=== PATIENT | female | born 1995 | race Caucasian/White ===

== ENCOUNTER 2016-09-15 18:13 | Emergency (ER) | payer MEDICAID ==
[2016-09-15 18:31] VITALS: BP 115/66
[2016-09-15] MEDS ORDERED: NS 0.9% 1000 ML* 1,000 ML IV ONE (21:17)
[2016-09-15] MEDS ORDERED: Ondansetron INJ* 2 MG/ML VIAL IV ONE (21:17)
[2016-09-15] MEDS ORDERED: Famotidine IV* 10 MG/ML 2 ML (20 mg) IV ONE (21:17)
[2016-09-15 21:59] LABS: Hematocrit 37 % (35-47); Hemoglobin 11.8 g/dl (12.0-16.0); Mean Corpuscular HGB Conc 32 g/dl (31-36); Mean Corpuscular Hemoglobin 24 pg (27-31); Mean Corpuscular Volume 77 fL (80-97); Mean Platelet Volume 9 um3 (7.4-10.4); Red Blood Count 4.87 10^6/ul (4.0-5.4); Red Cell Distribution Width 18 % (10.5-15); White Blood Count 7.4 10^3/ul (3.5-10.8)
[2016-09-15 22:16] LABS: ALT 11 U/L (7-52); AST 15 U/L (13-39); Alkaline Phosphatase 64 U/L (34-104); Anion Gap 7 mmol/L (2-11); BUN/Creatinine Ratio 19.4 (8-20); Blood Urea Nitrogen 12 mg/dL (6-24); CO2 Carbon Dioxide 26 mmol/L (22-32); Calcium 9.1 mg/dL (8.6-10.3); Chloride 102 mmol/L (101-111); EGFR African American 157.8 (>60); EGFR Non-African American 122.7 (>60); Globulin 2.8 g/dL (2-4); Glucose 90 mg/dL (70-100); Lipase 39 U/L (11.0-82.0); Potassium 3.9 mmol/L (3.5-5.0); Sodium 135 mmol/L (133-145); Total Protein 6.8 g/dL (6.4-8.9)
--- NOTE | 2016-09-15 23:09 | ED ---
GI/ HPI - HPI Summary HPI Summary: Patient complains of nausea and vomiting x 2 days. She states she has not vomited all day today, but continues to have nausea. she denies abdominal pain , vaginal discharge, vaginal odor, DE SOUZA, chest pain, dizziness or SOB. she states she feels slightly dehydrated most likely d/t vomiting. has not eaten all day today and vomited after eating yesterday. denies fever. - History of Current Complaint Chief Complaint: EDNauseaVomitDiarrh Stated Complaint: VOMITING, DEHYDRATED Hx Obtained From: Patient Onset/Duration: Started Days Ago - 2 Timing: Constant Severity: Moderate Current Severity: Moderate Pain Intensity: 0 - nausea only Associated Signs and Symptoms: Positive: Nausea, Vomiting, Change in Appetite, Pale Aggravating Factor(s): Nothing Alleviating Factor(s): Nothing - Risk Factors GI Bleed Risk Factor(s): Negative Spontaneous AB Risk Factor(s): Negative Placental Abruption Risk Factor(s): Negative Ectopic Risk Factor(s): Negative Ovarian Torsion Risk Factor(s): Reproductive Age, w/Hx of PID - Additional Pertinent History Primary Care Physician: KENYA - Allergy/Home Medications Allergies/Adverse Reactions: Allergies Allergy/AdvReac Type Severity Reaction Status Date / Time Amoxicillin Allergy Unknown Verified 08/17/16 21:31 Reaction Details Lorazepam [From Ativan] Allergy Unknown Verified 08/17/16 21:31 Reaction Details Penicillins [PCN] Allergy Unknown Verified 08/17/16 21:31 Reaction Details Lactose Intolerance (GI) AdvReac Intermediate Abdominal Verified 08/17/16 21:31 Pain Hydroxyzine [From Atarax] AdvReac See Comment Verified 08/17/16 21:31 Ziprasidone [From Geodon] AdvReac See Comment Verified 08/17/16 21:31 wheat AdvReac Intermediate Vomiting Uncoded 08/17/16 21:31 fruit AdvReac Unknown Uncoded 08/17/16 21:31 Reaction Details PMH/Surg Hx/FS Hx/Imm Hx Previously Healthy: Yes Endocrine/Hematology History: Denies: Hx Anticoagulant Therapy, Hx Diabetes, Hx Thyroid Disease Cardiovascular History: Reports: Other Cardiovascular Problems/Disorders - MURMUR Denies: Hx Hypertension Respiratory History: Reports: Hx Asthma Denies: Hx Chronic Obstructive Pulmonary Disease (COPD), Hx Lung Cancer, Hx Pneumonia, Hx Pulmonary Embolism, Other Respiratory Problems/Disorders GI History: Reports: Other GI Disorders - wheat allergy and lactose intolerance Denies: Hx Gall Bladder Disease, Hx Gastrointestinal Bleed, Hx Ulcer, Hx Urosepsis History: Reports: Other Problems/Disorders - hx multiple UTIs Denies: Hx Kidney Stones, Hx Renal Disease Neurological History: Reports: Hx Seizures Denies: Hx Dementia, Hx Migraine, Hx Transient Ischemic Attacks (TIA) Psychiatric History: Reports: Hx Anxiety, Hx Depression, Hx Inpatient Treatment - [facility], Hx Community Mental Health Tx - [facility], [facility], Other Psychiatric Issues/ Disorders Denies: Hx Attention Deficit Hyperactivity Disorder, Hx Eating Disorder, Hx Panic Disorder, Hx Post Traumatic Stress Disorder, Hx Schizophrenia, Hx Bipolar Disorder, Hx Suicide Attempt, Hx of Violent Episodes Against Others, Hx Substance Abuse - Surgical History Surgery Procedure, Year, and Place: none - Immunization History Date of Tetanus Vaccine: Unk Date of Influenza Vaccine: None Infectious Disease History: No Infectious Disease History: Denies: Hx Hepatitis, Hx Human Immunodeficiency Virus (HIV), Hx of Known/ Suspected MRSA, History Other Infectious Disease, Traveled Outside the [place] in Last 30 Days - Family History Known Family History: Positive: None, Unknown - Adopted, Other - Biological mother - EtOH and drug abuse - Social History Alcohol Use: None Alcohol Amount: pt denies during Hx Substance Use: No Substance Use Type: Reports: None Substance Use Comment - Amount & Last Used: pt denies drug use with this Hx Tobacco Use: Yes Smoking Status (MU): Former Smoker Type: Cigarettes Have You Smoked in the Last Year: No Review of Systems - ROS Summary Review of Systems Summary: Constitutional: The patient denies fever, DE SOUZA. HEENT: Head: The patient denies headaches or dizziness. Eyes: The patient denies diplopia, blurry vision, eye pain, eye discharge, photophobia. Throat: The patient denies sore throats or hoarseness. Cardiovascular: The patient denies chest pain, palpitations, syncope, night cramps, or orthostasis. Respiratory: The patient denies cough, sputum production,. Gastrointestinal: The patient denies odynophagia, dysphagia, hematemesis, melenemesis. patient positive for nausea and vomiting. Genitourinary: Patient denies dysuria, hematuria, or pyuria. Patient denies back pain. Denies vaginal discharge, vaginal bleeding. Denies other urinary symptoms. Neurologic: The patient denies headache, loss of consciousness, or seizure. Dermatologic: The patient denies hyperpigmentation, rash, or photosensitivity. All Other Systems Reviewed And Are Negative: Yes Physical Exam - Summary Physical Exam Summary: Appearance: WDW, comfortable, pleasant, alert Skin: Soft dry skin, no lesions. Nailbeds pink with no cyanosis or clubbing. Eyes: MELITA, EOMI, Conjunctiva pink with no redness or exudates. Mouth: Dentition without lesions. Moist mucosa Neck: Full range of motion. Thyroid not palpable. Trachea at midline. No lymphadenopathy. Pulm: Chest symmetrical expansion. No deformities on posterior chest wall. Lungs clear to auscultation and percussion, without adventitious sounds. CV: No JVD. No deformities on anterior chest wall. Heart soundsRRR, Normal S1 and single S2. No S3, S4, rubs, or murmurs. Carotids 2+ bilaterally without bruits. . Abd: No scars, inspection unremarkable. Bowel sounds normoactive. No pain on palpation in all 4 quadrants, epigastrium or suprapubic. Spleen not palpated. Negative CVA tenderness. Negative Rovsing. No tenderness at McBurneys point. exam not performed Musculoskeletal: Full range of motion. No deformities noted. Pulses full and equal. No calf tenderness Neuro: Motor strength is 5/5 in upper and lower extremities bilaterally. A&OX3 Psych: Logical, coherent Vital Signs On Initial Exam: Initial Vitals Temp Pulse Resp BP Pulse Ox 98.0 F 94 16 115/66 97 09/15/16 18:29 09/15/16 18:29 09/15/16 18:29 09/15/16 18:29 09/15/16 18:29 Diagnostics - Vital Signs Vital Signs Temp Pulse Resp BP Pulse Ox 09/15/16 18:29 98.0 F 94 16 115/66 97 - Laboratory Lab Results: Lab Results 09/15/16 09/15/16 Range/Units 21:50 21:50 WBC 7.4 (3.5-10.8) 10^3/ul RBC 4.87 (4.0-5.4) 10^6/ul Hgb 11.8 L (12.0-16.0) g/dl Hct 37 (35-47) % MCV 77 L (80-97) fL MCH 24 L (27-31) pg MCHC 32 (31-36) g/dl RDW 18 H (10.5-15) % Plt Count 320 (150-450) 10^3/ul MPV 9 (7.4-10.4) um3 Neut % (Auto) 57.8 (38-83) % Lymph % (Auto) 30.7 (25-47) % Nolan % (Auto) 6.8 (1-9) % Eos % (Auto) 4.1 (0-6) % Baso % (Auto) 0.6 (0-2) % Absolute Neuts (auto) 4.3 (1.5-7.7) 10^3/ul Absolute Lymphs (auto) 2.3 (1.0-4.8) 10^3/ul Absolute Monos (auto) 0.5 (0-0.8) 10^3/ul Absolute Eos (auto) 0.3 (0-0.6) 10^3/ul Absolute Basos (auto) 0 (0-0.2) 10^3/ul Absolute Nucleated RBC 0 10^3/ul Nucleated RBC % 0 Sodium 135 (133-145) mmol/L Potassium 3.9 (3.5-5.0) mmol/L Chloride 102 (101-111) mmol/L Carbon Dioxide 26 (22-32) mmol/L Anion Gap 7 (2-11) mmol/L BUN 12 (6-24) mg/dL Creatinine 0.62 (0.51-0.95) mg/dL Est GFR ( Amer) 157.8 (>60) Est GFR (Non-Af Amer) 122.7 (>60) BUN/Creatinine Ratio 19.4 (8-20) Glucose 90 (70-100) mg/dL Calcium 9.1 (8.6-10.3) mg/dL Total Bilirubin 0.40 (0.2-1.0) mg/dL AST 15 (13-39) U/L ALT 11 (7-52) U/L Alkaline Phosphatase 64 (34-104) U/L Total Protein 6.8 (6.4-8.9) g/dL Albumin 4.0 (3.2-5.2) g/dL Globulin 2.8 (2-4) g/dL Albumin/Globulin Ratio 1.4 (1-3) Lipase 39 (11.0-82.0) U/L Beta HCG, Quant < 0.60 mIU/mL Result Diagrams: 09/15/16 21:50 09/15/16 21:50 Lab Statement: Any lab studies that have been ordered have been reviewed, and results considered in the medical decision making process. GIGU Course/Dx - Course Course Of Treatment: Patient given fluids and zofran. On re-evlauation, patient feeling improved and OK to be discharged home. concern for PID, UTI, appendicitis is not suspected in this visit. - Diagnoses Differential Diagnoses - Female: Vomiting Provider Diagnoses: Nausea & vomiting - Physician Notifications Instructed by Provider To: Have Pt Call For Appt. Discharge - Discharge Plan Condition: Stable Disposition: HOME Prescriptions: Ondansetron TAB* [Zofran Tab*] 4 mg PO Q6H PRN #15 tab MDD 4 PRN Reason: Nausea Patient Education Materials: Acute Nausea and Vomiting (ED) Additional Instructions: Follow up with PCP if symptoms worsen or fail to improve. Drink plenty of fluids. Try to eat a bland diet over the next few days. Ibuprofen for pain as needed. Take zofran as prescribed to you.
[2016-09-15 23:19] LABS: Urine Bacteria Absent (Absent); Urine Bilirubin Negative (Negative); Urine Glucose Negative (Negative); Urine Nitrite Negative (Negative)
== END 2016-09-16 00:08 | disposition home or self-care (01) ==
LOC: ED 18:13
DX: R11.2 Nausea with vomiting, unspecified (principal); Z87.891 Personal history of nicotine dependence
CPT/HCPCS: 36415; 80053; 81003; 81015; 83690; 84702; 85025; 96361; 96374; 96375; 99282; J2405

== ENCOUNTER 2016-10-01 21:38 | Emergency (ER) | payer MEDICAID ==
[2016-10-01 22:33] VITALS: BP 135/70
[2016-10-02] MEDS ORDERED: Prochlorperazine TAB* 10 MG PO ONE (00:10)
[2016-10-02] MEDS ORDERED: Naproxen TAB* 250 MG PO ONE (00:11)
--- NOTE | 2016-10-02 00:20 | ED ---
Headache - HPI Summary HPI Summary: Patient with a CC of migraine since this morning. She states the pain is 9/10. Endorses photophobia and phonophobia, but denies scotomas. States she was prescribed naproxen for pain which helps some. Denies fever, chills, blurry vision or double vision. Denies abd pain or nausea. Notes she vomited once 3 days ago but feels it was food related. She states she has a history of migraines since 1 year ago and will get one once per month. DE SOUZA not sudden in onset, not worst of life. Frontal and temporal but feels occipitally as well. Does not radiate. - History Of Current Complaint Chief Complaint: EDHeadache Stated Complaint: MIGRAINES Hx Obtained From: Patient Hx Last Menstrual Period: pt due on 07/13/16 Onset/Duration: Sudden Onset Currently Pain Is: Current Pain Scale(0-10)= - 9 Timing: Constant Character: Sharp, Throbbing Location of Headache: Frontal, Temporal Aggravating Factor: Exertion, Bright Lights Allevating Factors: Nothing Associated Signs And Symptoms: Negative - Risk Factors SAH Risk Factors: Negative Meningitis Risk Factors: Negative SDH Risk Factors: Negative Temporal Arteritis Risk Factors: Negative - Allergies/Home Medications Allergies/Adverse Reactions: Allergies Allergy/AdvReac Type Severity Reaction Status Date / Time Amoxicillin Allergy Unknown Verified 08/17/16 21:31 Reaction Details Lorazepam [From Ativan] Allergy Unknown Verified 08/17/16 21:31 Reaction Details Penicillins [PCN] Allergy Unknown Verified 08/17/16 21:31 Reaction Details Lactose Intolerance (GI) AdvReac Intermediate Abdominal Verified 08/17/16 21:31 Pain Hydroxyzine [From Atarax] AdvReac See Comment Verified 08/17/16 21:31 Ziprasidone [From Geodon] AdvReac See Comment Verified 08/17/16 21:31 wheat AdvReac Intermediate Vomiting Uncoded 08/17/16 21:31 fruit AdvReac Unknown Uncoded 08/17/16 21:31 Reaction Details PMH/Surg Hx/FS Hx/Imm Hx Previously Healthy: Yes Endocrine/Hematology History: Denies: Hx Anticoagulant Therapy, Hx Diabetes, Hx Thyroid Disease Cardiovascular History: Reports: Other Cardiovascular Problems/Disorders - MURMUR Denies: Hx Hypertension Respiratory History: Reports: Hx Asthma Denies: Hx Chronic Obstructive Pulmonary Disease (COPD), Hx Lung Cancer, Hx Pneumonia, Hx Pulmonary Embolism, Other Respiratory Problems/Disorders GI History: Reports: Other GI Disorders - wheat allergy and lactose intolerance Denies: Hx Gall Bladder Disease, Hx Gastrointestinal Bleed, Hx Ulcer, Hx Urosepsis History: Reports: Other Problems/Disorders - hx multiple UTIs Denies: Hx Kidney Stones, Hx Renal Disease Neurological History: Reports: Hx Seizures Denies: Hx Dementia, Hx Migraine, Hx Transient Ischemic Attacks (TIA) Psychiatric History: Reports: Hx Anxiety, Hx Depression, Hx Inpatient Treatment - [facility], Hx Community Mental Health Tx - [facility], [facility], Other Psychiatric Issues/ Disorders Denies: Hx Attention Deficit Hyperactivity Disorder, Hx Eating Disorder, Hx Panic Disorder, Hx Post Traumatic Stress Disorder, Hx Schizophrenia, Hx Bipolar Disorder, Hx Suicide Attempt, Hx of Violent Episodes Against Others, Hx Substance Abuse - Surgical History Surgery Procedure, Year, and Place: none - Immunization History Date of Tetanus Vaccine: Unk Date of Influenza Vaccine: None Infectious Disease History: No Infectious Disease History: Denies: Hx Hepatitis, Hx Human Immunodeficiency Virus (HIV), Hx of Known/ Suspected MRSA, History Other Infectious Disease, Traveled Outside the in Last 30 Days - Family History Known Family History: Positive: None, Unknown - Adopted, Other - Biological mother - EtOH and drug abuse - Social History Occupation: Unemployed Lives: With Family Alcohol Use: None Alcohol Amount: pt denies during Hx Substance Use: No Substance Use Type: Reports: None Substance Use Comment - Amount & Last Used: pt denies drug use with this Hx Tobacco Use: Yes Smoking Status (MU): Former Smoker Type: Cigarettes Have You Smoked in the Last Year: No Review of Systems Constitutional: Negative Positive: Photophobia ENT: Negative Cardiovascular: Negative Respiratory: Negative Gastrointestinal: Negative Skin: Negative Positive: Headache Psychological: Normal All Other Systems Reviewed And Are Negative: Yes Physical Exam Triage Information Reviewed: Yes Vital Signs On Initial Exam: Initial Vitals Temp Pulse Resp BP Pulse Ox 99.3 F 103 16 135/70 100 10/01/16 22:29 10/01/16 22:29 10/01/16 22:29 10/01/16 22:29 10/01/16 22:29 Vital Signs Reviewed: Yes Appearance: Positive: Well-Appearing, No Pain Distress, Well-Nourished Skin: Positive: Warm, Skin Color Reflects Adequate Perfusion Head/Face: Positive: Normal Head/Face Inspection Eyes: Positive: Normal, EOMI, MELITA ENT: Positive: Normal ENT inspection Neck: Positive: Supple, Nontender, No Lymphadenopathy Respiratory/Lung Sounds: Positive: Clear to Auscultation, Breath Sounds Present Musculoskeletal: Positive: Normal, Strength/ROM Intact Neurological: Positive: Normal Psychiatric: Positive: Normal Diagnostics - Vital Signs Vital Signs Temp Pulse Resp BP Pulse Ox 10/01/16 22:29 99.3 F 103 16 135/70 100 - Laboratory Lab Statement: Any lab studies that have been ordered have been reviewed, and results considered in the medical decision making process. Headache Course/Dx - Course Course Of Treatment: Patient educated on follow up with PCP and abortive therapies of migraines. Patient prescribed compazine for abortive therapy and encouraged to take with naproxen and benadryl (at night). Come back to ED if symptoms fail to improve. DE SOUZA was not worst of life, not sudden in onset, no visual changes. Patient prefers outpatient treatment. - Diagnoses Differential Diagnosis/HQI/PQRI: Migraine, Tension Headache, Viral Syndrome Provider Diagnoses: Migraine without aura Is Visit Related: No Discharge - Discharge Plan Condition: Stable Disposition: HOME Prescriptions: Prochlorperazine TAB* [Compazine Tab*] 10 mg PO Q6H PRN #20 tab MDD 4 PRN Reason: Pain Patient Education Materials: Migraine Headache (ED) Referrals: Suzi Hernandez MD [Primary Care Provider] - Additional Instructions: Take medication as prescribed to you. At onset of migraine: take 10mg compazine tab, 500mg Naproxen, and 25mg Benadryl (only at night) as discussed. Follow up with your PCP regarding abortive therapy medications if migraines continue.
== END 2016-10-02 00:25 | disposition home or self-care (01) ==
LOC: ED 21:38
DX: G43.009 Migraine without aura, not intractable, without status migrainosus (principal); Z87.891 Personal history of nicotine dependence; H53.149 Visual discomfort, unspecified
CPT/HCPCS: 99282; A9270-GY; Q0164

== ENCOUNTER 2016-10-04 13:50 | Emergency (ER) | payer MEDICAID ==
[2016-10-04 13:59] VITALS: BP 109/83
[2016-10-04 17:08] LABS: Manual Entry Verification MD; UR Preg Internal Control QC Line Present
--- NOTE | 2016-10-04 17:41 | RAD ---
INDICATION: Left foot injury. TECHNIQUE: 3 views of the left foot were obtained. FINDINGS: The bones are in normal alignment. No fracture is seen. Joint spaces appear maintained. IMPRESSION: NO EVIDENCE FOR FRACTURE.
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
== END 2016-10-04 19:22 | disposition home or self-care (01) ==
LOC: ED 13:50
DX: S90.32XA Contusion of left foot, initial encounter (principal); S93.602A Unspecified sprain of left foot, initial encounter; M25.572 Pain in left ankle and joints of left foot; Z87.891 Personal history of nicotine dependence; W22.8XXA Striking against or struck by other objects, initial encounter; Y93.9 Activity, unspecified; Y92.9 Unspecified place or not applicable; Y99.9 Unspecified external cause status
CPT/HCPCS: 81025; 99281

== ENCOUNTER 2016-10-14 18:16 | Emergency (ER) | payer MEDICAID, OTHER ==
[2016-10-14] MEDS ORDERED: Ondansetron INJ* 2 MG/ML VIAL IV ONE (19:35)
[2016-10-14] MEDS ORDERED: NS 0.9% 1000 ML* 1,000 ML IV ONE (19:35)
[2016-10-14 20:26] LABS: Hematocrit 38 % (35-47); Hemoglobin 12.3 g/dl (12.0-16.0); Mean Corpuscular HGB Conc 32 g/dl (31-36); Mean Corpuscular Hemoglobin 25 pg (27-31); Mean Corpuscular Volume 77 fL (80-97); Mean Platelet Volume 9 um3 (7.4-10.4); Red Blood Count 4.97 10^6/ul (4.0-5.4); Red Cell Distribution Width 16 % (10.5-15); White Blood Count 5.6 10^3/ul (3.5-10.8)
[2016-10-14 20:42] LABS: Albumin 4.2 g/dL (3.2-5.2); BUN/Creatinine Ratio 16.9 (8-20); C Reactive Protein 4.8 mg/L (< 5.00); Calcium 9.1 mg/dL (8.6-10.3); Globulin 2.6 g/dL (2-4); Potassium 3.6 mmol/L (3.5-5.0); Total Protein 6.8 g/dL (6.4-8.9)
[2016-10-14 21:01] LABS: Urine Bacteria Absent (Absent); Urine Bilirubin Negative (Negative); Urine Glucose Negative (Negative); Urine Nitrite Negative (Negative)
[2016-10-14] MEDS ORDERED: Ciprofloxacin TAB* 500 MG PO ONE (21:25)
--- NOTE | 2016-10-14 21:34 | ED ---
García Curran Billy, scribed for Maged Vo MD on 10/14/16 at 1942 . Complex/Multi-Sys Presentation - HPI Summary HPI Summary: Patient is a 21 year-old female coming to [facility] after she woke up yesterday morning feeling "generally unwell." She reports multiple episodes of N/V/D today ; she describes dark, watery diarrhea without blood. She also reports abd cramping, DE SOUZA, dizziness, chills, and decreased appetite. Positive dysuria and frequency. Her mother had similar symptoms at home recently. No recent travel or antibiotics. LMP 2 weeks ago. - History Of Current Complaint Chief Complaint: EDGeneral Time Seen by Provider: 10/14/16 19:34 Hx Obtained From: Patient Onset/Duration: Gradual Onset, Lasting Days, Still Present Timing: Constant Severity Currently: Moderate Severity Initially: Moderate Location: Pain At: - abd cramp Aggravating Factor(s): none Alleviating Factor(s): none Associated Signs And Symptoms: Positive: Dizziness, Headache, Nausea, Vomiting, Diarrhea, Abdominal Pain, Dysuria, Decreased Oral Intake, Other - urinary freq - Allergies/Home Medications Allergies/Adverse Reactions: Allergies Allergy/AdvReac Type Severity Reaction Status Date / Time Amoxicillin Allergy Unknown Verified 10/04/16 14:00 Reaction Details Lorazepam [From Ativan] Allergy Unknown Verified 10/04/16 14:00 Reaction Details Penicillins [PCN] Allergy Unknown Verified 10/04/16 14:00 Reaction Details Lactose Intolerance (GI) AdvReac Intermediate Abdominal Verified 10/04/16 14:00 Pain Hydroxyzine [From Atarax] AdvReac See Comment Verified 10/04/16 14:00 Ziprasidone [From Geodon] AdvReac See Comment Verified 10/04/16 14:00 wheat AdvReac Intermediate Vomiting Uncoded 10/04/16 14:00 fruit AdvReac Unknown Uncoded 10/04/16 14:00 Reaction Details PMH/Surg Hx/FS Hx/Imm Hx Endocrine/Hematology History: Denies: Hx Anticoagulant Therapy, Hx Diabetes, Hx Thyroid Disease Cardiovascular History: Reports: Other Cardiovascular Problems/Disorders - MURMUR Denies: Hx Hypertension Respiratory History: Reports: Hx Asthma Denies: Hx Chronic Obstructive Pulmonary Disease (COPD), Hx Lung Cancer, Hx Pneumonia, Hx Pulmonary Embolism, Other Respiratory Problems/Disorders GI History: Reports: Other GI Disorders - wheat allergy and lactose intolerance Denies: Hx Gall Bladder Disease, Hx Gastrointestinal Bleed, Hx Ulcer, Hx Urosepsis History: Reports: Other Problems/Disorders - hx multiple UTIs Denies: Hx Kidney Stones, Hx Renal Disease Neurological History: Reports: Hx Seizures Denies: Hx Dementia, Hx Migraine, Hx Transient Ischemic Attacks (TIA) Psychiatric History: Reports: Hx Anxiety, Hx Depression, Hx Inpatient Treatment - [facility], [facility], [facility], Other Psychiatric Issues/ Disorders Denies: Hx Attention Deficit Hyperactivity Disorder, Hx Eating Disorder, Hx Panic Disorder, Hx Post Traumatic Stress Disorder, Hx Schizophrenia, Hx Bipolar Disorder, Hx Suicide Attempt, Hx of Violent Episodes Against Others, Hx Substance Abuse - Surgical History Surgery Procedure, Year, and Place: none - Immunization History Date of Tetanus Vaccine: Unk Date of Influenza Vaccine: None Infectious Disease History: No Infectious Disease History: Denies: Hx Hepatitis, Hx Human Immunodeficiency Virus (HIV), Hx of Known/ Suspected MRSA, History Other Infectious Disease, Traveled Outside the [place] in Last 30 Days - Family History Known Family History: Positive: Unknown - Adopted, Other - Biological mother - EtOH and drug abuse - Social History Alcohol Use: Rare Alcohol Amount: pt denies during Hx Substance Use: No Substance Use Type: Reports: None Substance Use Comment - Amount & Last Used: pt denies drug use with this Hx Tobacco Use: Yes Smoking Status (MU): Former Smoker Type: Cigarettes Have You Smoked in the Last Year: No Review of Systems Positive: Chills, Other - general malaise Positive: Abdominal Pain, Vomiting, Diarrhea, Nausea, Other - decreased appetite Positive: dysuria, frequency Neurological: Other - dizziness Positive: Headache All Other Systems Reviewed And Are Negative: Yes Physical Exam - Summary Physical Exam Summary: VITAL SIGNS: Reviewed. GENERAL: Patient is a well developed and nourished female who is lying comfortable in the stretcher. Patient is not in any acute respiratory distress. HEAD AND FACE: Normocephalic and atraumatic. EYES: PERRLA, EOMI x 2, No injected conjunctiva. EARS: Hearing grossly intact. Ear canals and tympanic membranes are WNL. MOUTH: Oropharynx within normal limits. NECK: Supple, trachea is midline, no adenopathy, no JVD. CHEST: Symmetric, no tenderness at palpation LUNGS: Clear to auscultation bilaterally. No wheezing or crackles. CVS: RRR,, S1 and S2 present, no murmurs or gallops appreciated. ABDOMEN: Soft, non-tender. No signs of distention. Positive bowel sounds. No rebound no guarding, and no masses palpated. No abdominal bruit or pulsations. EXTREMITIES: FROM in all major joints, no edema, no cyanosis or clubbing. NEURO: Alert and oriented x 3. No acute neurological deficits. Speech is normal. SKIN: Dry and warm Triage Information Reviewed: Yes Vital Signs On Initial Exam: Initial Vitals Temp Pulse Resp BP Pulse Ox 983.7 F 120 20 107/86 98 10/14/16 18:48 10/14/16 18:48 10/14/16 18:48 10/14/16 18:48 10/14/16 18:48 Vital Signs Reviewed: Yes Diagnostics - Vital Signs Vital Signs Temp Pulse Resp BP Pulse Ox 10/14/16 18:48 983.7 F 120 20 107/86 98 - Laboratory Result Diagrams: 10/14/16 20:05 10/14/16 20:05 Lab Statement: Any lab studies that have been ordered have been reviewed, and results considered in the medical decision making process. Complex Multi-Symp Course/Dx Assessment/Plan: Patient is a 21 year-old female coming to [facility] after she woke up yesterday morning feeling "generally unwell." She reports multiple episodes of N/V/D today; she describes dark, watery diarrhea without blood. She also reports abd cramping, DE SOUZA, dizziness, chills, and decreased appetite. Positive dysuria and frequency. Her mother had similar symptoms at home recently. No recent travel or antibiotics. LMP 2 weeks ago. Bloodwork WNL. UA is contaminated , however the patient reports that she has dysuria and frequency and she has had same sx as when she had previous UTI. Therefore she will be given ciprofloxacin for clinical UTI and we will send urine cultures to confirm. The patient has not been able to give any stool samples, therefore it seems that her symptoms are improving. The nausea and vomiting have also resolved, and she is able to tolerate PO. Therefore she will be discharged home to follow up with PCP. She is hemodynamically stable, A&Ox3. I discussed all the findings and test results with the patient Patient was instructed to return to the emergency room immediately if any of the symptoms return or worsens. They understand and agree. They were explained the possibility of an early abdominal pathology which was not detected at this time despite the physical exam and testing. They understand and agree. Abdominal exam before discharge: Soft, NT. No signs of distention. BS present. No rebound no guarding, and no masses palpated. Patient is alert and oriented. Patient is hemodynamically stable. Patient is to follow up with primary care physician in the next 24 hours. Patient and patients parents agree and understands - Diagnoses Differential Diagnoses/HQI/PQRI: Other - Gastrits, gastroenteritis, colitis, diverticulitis Provider Diagnoses: UTI (urinary tract infection), Nausea, vomiting and diarrhea Discharge - Discharge Plan Condition: Stable Disposition: HOME Prescriptions: Ciprofloxacin TAB* [Cipro Tab*] 250 mg PO BID #6 tab Patient Education Materials: Urinary Tract Infection in Women (ED), Acute Nausea and Vomiting (ED), Acute Diarrhea (ED) Referrals: Suzi Hernandez MD [Primary Care Provider] - The documentation as recorded by the García dudley Billy accurately reflects the service I personally performed and the decisions made by , Maged Vo MD.
[2016-10-14 21:37] VITALS: BP 111/65
== END 2016-10-14 21:37 | disposition home or self-care (01) ==
LOC: ED 18:16
DX: N39.0 Urinary tract infection, site not specified (principal); R10.9 Unspecified abdominal pain; R51 Headache; R42 Dizziness and giddiness; R30.0 Dysuria; R19.7 Diarrhea, unspecified; R11.2 Nausea with vomiting, unspecified; Z87.891 Personal history of nicotine dependence
CPT/HCPCS: 36415; 80053; 81003; 81015; 82140; 83605; 83690; 85025; 86140; 87086; 96374; 99282; J2405

== ENCOUNTER 2016-10-17 17:26 | Emergency (ER) | payer MEDICAID ==
[2016-10-17 18:01] VITALS: BP 115/72
== END 2016-10-17 19:00 | disposition left against medical advice (07) ==
LOC: ED 17:26
DX: R11.10 Vomiting, unspecified (principal); Z53.21 Procedure and treatment not carried out due to patient leaving prior to being seen by health care provider

== ENCOUNTER 2016-10-29 18:27 | Emergency (ER) | payer MEDICAID, OTHER ==
[2016-10-29 23:07] LABS: UR Preg Internal Control QC Line Present
[2016-10-29 23:10] LABS: Urine Bacteria Absent (Absent); Urine Bilirubin Negative (Negative); Urine Glucose Negative (Negative); Urine Nitrite Negative (Negative)
--- NOTE | 2016-10-29 23:17 | ED ---
Abdominal Pain/Female - HPI Summary HPI Summary: 21 female presents with complaints of abdominal cramping and burning sensation of RLQ/suprapubic pain that began today 10/29/16 around 4pm. Patient states she was taking a bath because she was having some cramps and when she got out and was drying off a small puddle of clear fluid came out of her vagina and went onto the floor. Patient denies any color to the fluid or blood. It was clear water. Describes it to be similar to when her water broke with her first child. Patient states she is due for her menstrual cycle today but has not gotten it. LMP 10/05/16. She took a OTC test 2 weeks ago that was positive however she took another 2 this past Wednesday and Wednesday10/27/16 that were both negative. Stated "she felt like her stomach was growing like it did with her first child." She denies any discharge at this time or since the incident. Complains still of abdominal cramping and "burning sensation" to the RLQ, suprapubic area with some radiation into her flank. Denies fever/chills, urinary frequency, urgency and burning. + Hx of ovarian cysts. She wants to make sure this is not an ectopic or ovarian cyst. Denies constipation , diarrhea or trouble going to the bathroom. - History of Current Complaint Chief Complaint: EDVaginalBleeding Stated Complaint: LOWER ABD CRAMPING, POSSIBLE PREG Time Seen by Provider: 10/29/16 22:29 Hx Obtained From: Patient Hx Last Menstrual Period: 10/05/16 ?: No Onset/Duration: Sudden Onset Timing: Constant Severity Initially: Moderate Severity Currently: Mild Pain Intensity: 9 Pain Scale Used: 0-10 Numeric Location: Discrete At: RLQ, Suprapubic Radiates: Yes Radiates to: Flank Character: Burning, Cramping Aggravating Factor(s): Movement - laying in supine position Alleviating Factor(s): Position Associated Signs and Symptoms: Positive: Vaginal Discharge - not currently, however one incident after taking a bath. a clear amount of small fluid, water- like. - Risk Factors Ovarian Torsion Risk Factor: Ovarian Cysts/Tumors - cyst history Allergies/Adverse Reactions: Allergies Allergy/AdvReac Type Severity Reaction Status Date / Time Amoxicillin Allergy Unknown Verified 10/30/16 01:03 Reaction Details Lorazepam [From Ativan] Allergy Unknown Verified 10/30/16 01:03 Reaction Details Penicillins [PCN] Allergy Unknown Verified 10/30/16 01:03 Reaction Details Lactose Intolerance (GI) AdvReac Intermediate Abdominal Verified 10/30/16 01:03 Pain Hydroxyzine [From Atarax] AdvReac See Comment Verified 10/30/16 01:03 Ziprasidone [From Geodon] AdvReac See Comment Verified 10/30/16 01:03 wheat AdvReac Intermediate Vomiting Uncoded 10/30/16 01:03 fruit AdvReac Unknown Uncoded 10/30/16 01:03 Reaction Details PMH/Surg Hx/FS Hx/Imm Hx Endocrine/Hematology History: Denies: Hx Anticoagulant Therapy, Hx Diabetes, Hx Thyroid Disease Cardiovascular History: Reports: Other Cardiovascular Problems/Disorders - MURMUR Denies: Hx Hypertension Respiratory History: Reports: Hx Asthma Denies: Hx Chronic Obstructive Pulmonary Disease (COPD), Hx Lung Cancer, Hx Pneumonia, Hx Pulmonary Embolism, Other Respiratory Problems/Disorders GI History: Reports: Other GI Disorders - wheat allergy and lactose intolerance Denies: Hx Gall Bladder Disease, Hx Gastrointestinal Bleed, Hx Ulcer, Hx Urosepsis History: Reports: Other Problems/Disorders - hx multiple UTIs Denies: Hx Kidney Stones, Hx Renal Disease Neurological History: Reports: Hx Seizures Denies: Hx Dementia, Hx Migraine, Hx Transient Ischemic Attacks (TIA) Psychiatric History: Reports: Hx Anxiety, Hx Depression, Hx Inpatient Treatment - [facility], [facility], [facility], Other Psychiatric Issues/ Disorders Denies: Hx Attention Deficit Hyperactivity Disorder, Hx Eating Disorder, Hx Panic Disorder, Hx Post Traumatic Stress Disorder, Hx Schizophrenia, Hx Bipolar Disorder, Hx Suicide Attempt, Hx of Violent Episodes Against Others, Hx Substance Abuse - Surgical History Surgery Procedure, Year, and Place: none - Immunization History Date of Tetanus Vaccine: Unk Date of Influenza Vaccine: None Infectious Disease History: No Infectious Disease History: Denies: Hx Hepatitis, Hx Human Immunodeficiency Virus (HIV), Hx of Known/ Suspected MRSA, History Other Infectious Disease, Traveled Outside the [place] in Last 30 Days - Family History Known Family History: Positive: None, Unknown - Adopted, Other - Biological mother - EtOH and drug abuse - Social History Alcohol Use: Rare Alcohol Amount: pt denies during Hx Substance Use: No Substance Use Type: Reports: Marijuana Substance Use Comment - Amount & Last Used: used in past, also ecstacy Hx Tobacco Use: Yes Smoking Status (MU): Former Smoker Type: Cigarettes Have You Smoked in the Last Year: No Review of Systems Constitutional: Negative Eyes: Negative ENT: Negative Cardiovascular: Negative Respiratory: Negative Positive: Abdominal Pain - cramping and burning of RLQ, suprapubic Positive: see HPI, discharge - clear fluid x1 time Positive: Arthralgia Skin: Negative Neurological: Negative Psychological: Normal All Other Systems Reviewed And Are Negative: Yes Physical Exam Triage Information Reviewed: Yes Vital Signs On Initial Exam: Initial Vitals Temp Pulse Resp BP Pulse Ox 98.0 F 104 20 120/58 97 10/29/16 18:35 10/29/16 18:35 10/29/16 18:35 10/29/16 18:35 10/29/16 18:35 slight tachycardia noted Vital Signs Reviewed: Yes Appearance: Positive: Well-Appearing, No Pain Distress - Does not appear to be in any pain distress, moving around the bed to charge her phone upon arrival and sitting comfortably on stretcher during exam., Well-Nourished Skin: Positive: Warm, Skin Color Reflects Adequate Perfusion, Dry Head/Face: Positive: Normal Head/Face Inspection Eyes: Positive: Conjunctiva Clear ENT: Positive: Hearing grossly normal Neck: Positive: Supple, Nontender, No Lymphadenopathy Respiratory/Lung Sounds: Positive: Clear to Auscultation, Breath Sounds Present Cardiovascular: Positive: Normal, RRR, Pulses are Symmetrical in both Upper and Lower Extremities Abdomen Description: Positive: No Organomegaly, Soft, Other: - tenderness on deep palpation of lower right suprapubic/RLQ area. Negative Rovsing's, obturator sign. No rebound pain.. Negative: Bruit, CVA Tenderness (R), CVA Tenderness (L), Distended, Guarding, McBurney's Point Tenderness, Peritoneal Signs Bowel Sounds: Positive: Present Pelvic Exam: Positive: external exam normal Musculoskeletal: Positive: Normal Neurological: Positive: Normal, Sensory/Motor Intact, Alert, Oriented to Person Place, Time Psychiatric: Positive: Normal - Senia Coma Scale Coma Scale Total: 15 Diagnostics - Vital Signs Vital Signs Temp Pulse Resp BP Pulse Ox 10/29/16 21:30 99.2 F 95 16 107/63 99 10/29/16 19:51 98.7 F 78 16 106/59 99 10/29/16 18:35 98.0 F 104 20 120/58 97 - Laboratory Lab Results: Lab Results 10/29/16 Range/Units 22:40 Urine Color Pending Urine Appearance Pending Urine pH Pending Ur Specific [place] Pending Urine Protein Pending Urine Ketones Pending Urine Blood Pending Urine Nitrate Pending Urine Bilirubin Pending Urine Urobilinogen Pending Ur Leukocyte Esterase Pending Urine Glucose Pending Urine Ascorbic Acid Pending Urine Test Negative (Negative) Lab Statement: Any lab studies that have been ordered have been reviewed, and results considered in the medical decision making process. - Ultrasound No standard instances Ultrasound Interpretation: No Acute Changes Ultrasound Interpretation Completed By: Radiologist Re-Evaluation - Re-Evaluation First Eval Re-Evaluation Time: 01:40 Change: Improved Comment: patient has some relief after ibuprofen Abdominal Pain Fem Course/Dx - Course Course Of Treatment: urinalysis and urine test obtained and negative. patient will have a pelvic ultrasound to rule out ovarian cysts/torsion and ectopic . u/s was negative normal follicles/cyst were seen. could be cause of pain. no surgical or large ovarian cysts were seen. patient was given ibuprofen for pain, which gave her some relief. pelvic exam not completed due to history of symptoms and complaints. patient is sexually active with same partner of first child. denies STD history. patient appears to be experiencing menstrual cycle symptoms and the discharge seems to have been bath water. aware of worsening signs and symptoms to watch out for. - Diagnoses Differential Diagnosis: Positive: Constipation, Ectopic , Ovarian Cyst , , Urinary Tract Infection Provider Diagnoses: Abdominal pain in female, Menstrual cramp, Menstrual changes Discharge - Discharge Plan Condition: Stable Disposition: HOME Patient Education Materials: Premenstrual Syndrome (ED), Ovarian Cyst (ED) Referrals: Suzi Hernandez MD [Primary Care Provider] - Additional Instructions: Take prescribed medication to help with pain while symptoms persist, take with food. Heating pads will help with abdominal cramping. If symptoms persist or worsen such as increasing pain intensity vomiting, nausea, fever, chills or bleeding please seek medical attention promptly.
[2016-10-30] MEDS ORDERED: Ibuprofen TAB* 800 MG PO ONE (00:49)
[2016-10-30 02:41] VITALS: BP 112/73
--- NOTE | 2016-10-30 08:01 | RAD ---
INDICATION: Pelvic pain COMPARISON: Most recent comparison ultrasound is September 03, 2015 TECHNIQUE: Real-time transabdominal and transvaginal ultrasound examination of the female pelvis including grayscale and Doppler color flow imaging. FINDINGS: Uterus: The uterus is normal in size and echogenicity measuring 7.1 x 4.2 x 6.5 cm. The endometrial stripe is smooth and uniform measuring 1 cm in thickness. Ovaries: The right and left ovary measure 3.1 x 1.7 x 1.3 cm and 3.4 x 3.1 x 2.7 cm, respectively. Normal arterial and venous waveforms are identified. Appearance is within normal limits for the patient's age. There is no free fluid in the cul-de-sac. IMPRESSION: Normal and age-appropriate pelvic ultrasound.
== END 2016-10-30 02:40 | disposition home or self-care (01) ==
LOC: ED 18:27
DX: R10.31 Right lower quadrant pain (principal); Z87.891 Personal history of nicotine dependence; R10.2 Pelvic and perineal pain
CPT/HCPCS: 76830; 81003; 81015; 81025; 99282; A9270-GY

== ENCOUNTER 2017-01-02 13:13 | Emergency (ER) | payer OTHER ==
[2017-01-02 13:21] VITALS: BP 116/76
[2017-01-02 15:22] LABS: Urine Bacteria Absent (Absent); Urine Bilirubin Negative (Negative); Urine Glucose Negative (Negative); Urine Nitrite Negative (Negative)
--- NOTE | 2017-01-02 16:06 | ED ---
GI/ HPI - HPI Summary HPI Summary: Patient is a 21yo 10 week F with history of seizures and UTI's presents to ED with CC of burning, frequency and urgency with urination since this morning x2. She has a history of kidney infections, kidney stones and chronic UTI's. Last UTI was 6 months ago and was treated with cipro. She noted some blood in the urine this morning and states that is normal for her during both and UTI. She denies back pain, fever, chills or sweats. She is otherwise healthy and denies recent illness. 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 She is allergic to amoxicillin but reaction is nausea and rash. - History of Current Complaint Chief Complaint: EDUrogenitalProblems Time Seen by Provider: 01/02/17 15:31 Stated Complaint: BLOOD IN URINE Hx Obtained From: Patient Onset/Duration: Started Minutes Ago Timing: Constant Severity: Moderate Current Severity: Moderate Pain Intensity: 3 Location of Pain: LLQ, Suprapubic Associated Signs and Symptoms: Positive: Dysuria, UTI Symptoms Additional Signs & Symptoms: Positive: Other: - Aggravating Factor(s): Voiding, Straining, Urination Alleviating Factor(s): Nothing - Risk Factors GI Bleed Risk Factor(s): Negative Spontaneous AB Risk Factor(s): Negative Placental Abruption Risk Factor(s): Negative Ectopic Risk Factor(s): Negative Ovarian Torsion Risk Factor(s): Reproductive Age - Additional Pertinent History Primary Care Physician: [id number] - Allergy/Home Medications Allergies/Adverse Reactions: Allergies Allergy/AdvReac Type Severity Reaction Status Date / Time Amoxicillin Allergy Unknown Verified 01/02/17 13:20 Reaction Details Lorazepam [From Ativan] Allergy Unknown Verified 01/02/17 13:20 Reaction Details Penicillins [PCN] Allergy Unknown Verified 01/02/17 13:20 Reaction Details Lactose Intolerance (GI) AdvReac Intermediate Abdominal Verified 01/02/17 13:20 Pain Hydroxyzine [From Atarax] AdvReac See Comment Verified 01/02/17 13:20 Ziprasidone [From Geodon] AdvReac See Comment Verified 01/02/17 13:20 wheat AdvReac Intermediate Vomiting Uncoded 01/02/17 13:20 fruit AdvReac Unknown Uncoded 01/02/17 13:20 Reaction Details PMH/Surg Hx/FS Hx/Imm Hx Previously Healthy: Yes Endocrine/Hematology History: Denies: Hx Anticoagulant Therapy, Hx Diabetes, Hx Thyroid Disease Cardiovascular History: Reports: Other Cardiovascular Problems/Disorders - MURMUR Denies: Hx Hypertension Respiratory History: Reports: Hx Asthma Denies: Hx Chronic Obstructive Pulmonary Disease (COPD), Hx Lung Cancer, Hx Pneumonia, Hx Pulmonary Embolism, Other Respiratory Problems/Disorders GI History: Reports: Other GI Disorders - wheat allergy and lactose intolerance Denies: Hx Gall Bladder Disease, Hx Gastrointestinal Bleed, Hx Ulcer, Hx Urosepsis History: Reports: Other Problems/Disorders - hx multiple UTIs Denies: Hx Kidney Stones, Hx Renal Disease Neurological History: Reports: Hx Seizures Denies: Hx Dementia, Hx Migraine, Hx Transient Ischemic Attacks (TIA) Psychiatric History: Reports: Hx Anxiety, Hx Depression, Hx Inpatient Treatment - [facility], Hx Community Mental Health Tx - [facility], [facility], Other Psychiatric Issues/ Disorders Denies: Hx Attention Deficit Hyperactivity Disorder, Hx Eating Disorder, Hx Panic Disorder, Hx Post Traumatic Stress Disorder, Hx Schizophrenia, Hx Bipolar Disorder, Hx Suicide Attempt, Hx of Violent Episodes Against Others, Hx Substance Abuse - Surgical History Surgery Procedure, Year, and Place: none - Immunization History Date of Tetanus Vaccine: Unk Date of Influenza Vaccine: None Infectious Disease History: No Infectious Disease History: Denies: Hx Hepatitis, Hx Human Immunodeficiency Virus (HIV), Hx of Known/ Suspected MRSA, History Other Infectious Disease, Traveled Outside the [place] in Last 30 Days - Family History Known Family History: Positive: None, Unknown - Adopted, Other - Biological mother - EtOH and drug abuse - Social History Occupation: Unemployed Lives: Alone Alcohol Use: Rare Alcohol Amount: pt denies during Hx Substance Use: No Substance Use Type: Reports: Marijuana Substance Use Comment - Amount & Last Used: used in past, also ecstacy Hx Tobacco Use: Yes Smoking Status (MU): Former Smoker Type: Cigarettes Have You Smoked in the Last Year: No Review of Systems Constitutional: Negative ENT: Negative Cardiovascular: Negative Respiratory: Negative Positive: Abdominal Pain - suprapubic and LLQ Positive: burning, dysuria, frequency, pain, urgency Musculoskeletal: Negative Skin: Negative Psychological: Normal All Other Systems Reviewed And Are Negative: Yes Physical Exam Triage Information Reviewed: Yes Vital Signs On Initial Exam: Initial Vitals Temp Pulse Resp BP Pulse Ox 98.4 F 119 16 116/76 100 01/02/17 13:20 01/02/17 13:20 01/02/17 13:20 01/02/17 13:20 01/02/17 13:20 Vital Signs Reviewed: Yes Appearance: Positive: Well-Appearing, No Pain Distress, Well-Nourished Skin: Positive: Warm, Skin Color Reflects Adequate Perfusion Head/Face: Positive: Normal Head/Face Inspection Eyes: Positive: EOMI, MELITA, Conjunctiva Clear Neck: Positive: Supple, No Lymphadenopathy Respiratory/Lung Sounds: Positive: Clear to Auscultation, Breath Sounds Present Cardiovascular: Positive: Normal, RRR Abdomen Description: Positive: Soft, Other: - tenderness over suprapubic area, no tenderness on palpation to RLQ or LLQ, murphys negative, psoas, obturator and rovsing negative. Musculoskeletal: Positive: Normal, Strength/ROM Intact Neurological: Positive: Sensory/Motor Intact, Alert, Oriented to Person Place, Time, Speech Normal Psychiatric: Positive: Normal AVPU Assessment: Alert - [place] Coma Scale Best Eye Response: 4 - Spontaneous Best Motor Response: 6 - Obeys Commands Best Verbal Response: 5 - Oriented Coma Scale Total: 15 Diagnostics - Vital Signs Vital Signs Temp Pulse Resp BP Pulse Ox 01/02/17 13:21 98.4 F 119 16 116/76 100 01/02/17 13:20 98.4 F 119 16 116/76 100 - Laboratory Lab Results: Lab Results 01/02/17 Range/Units 13:35 Urine Color Yellow Urine Appearance Cloudy Urine pH 6.0 (5-9) Ur Specific [place] 1.024 (1.010-1.030) Urine Protein 2+(100 mg/dl) H (Negative) Urine Ketones Negative (Negative) Urine Blood 3+ H (Negative) Urine Nitrate Negative (Negative) Urine Bilirubin Negative (Negative) Urine Urobilinogen Negative (Negative) Ur Leukocyte Esterase 3+ H (Negative) Urine WBC (Auto) 3+(>20/hpf) H (Absent) Urine RBC (Auto) 3+(>10/hpf) H (Absent) Ur Squamous Epith Cells Present H (Absent) Ur Transition Epith Cell Present H (Absent) Urine Bacteria Absent (Absent) Hyaline Casts Present H (Absent) Urine Glucose Negative (Negative) Lab Statement: Any lab studies that have been ordered have been reviewed, and results considered in the medical decision making process. GIGU Course/Dx - Course Course Of Treatment: UA performed. WBC, RBC and leuks seen. Labs WNL. Patient experiencing urgency, frequency and pain on urination. Dark urine noted. No abnormal vaginal discharge. Scant amount of bleeding, but scant. test positive. No CVA tenderness bilaterally. Previous UTI within last 6 months and no recent Augmentin use. Will treat for uncomplicated UTI and await sensitivities of urine culture. Patient given keflex d/t safe in . macrobid not used d/t suspician of pyelonephritis. No CVA, but 3+ blood in urine and history of pyelo. Will call if abx not sensitive to medication. Pyridium given for comfort. Return precautions and follow up with PCP. - Diagnoses Differential Diagnoses - Female: Cystitis, Pyelonephritis, Renal Calculi, Renal Colic, Urinary Tract Infection Provider Diagnoses: Urinary tract infection during Discharge - Discharge Plan Condition: Stable Disposition: HOME Prescriptions: Cephalexin CAP* [Keflex CAP*] 500 mg PO BID #20 cap MDD 2 Phenazopyridine TAB* [Pyridium 100 mg TAB*] 100 mg PO TID PRN #21 tab MDD 3 PRN Reason: Pain Patient Education Materials: Urinary Tract Infection in Women (ED) Referrals: Suzi Hernandez MD [Primary Care Provider] - Additional Instructions: Follow up with PCP Follow up with OBGYN Medications prescribed to you are safe in . If you develop worsening symptoms or back pain, please come back to ED immediately. Dx. Urinary Tract Infection Drink plenty of fluids. Supplement with cranberry or zapien juice. You may also take an over the counter cranberry supplement. If you have any questions about this, you may ask your pharmacist. If your symptoms have not improved in 1-2 days, if you develop fever, sweats or chills, please go to your emergency room, or call your PCP. Antibiotics were prescribed to you. Please take as directed. Supplement with over the counter probiotics on the opposite schedule of your antibiotic to prevent secondary infections. Do not take together as they may counteract each other. Pyridium: This medication is used to treat pain, burning, increased urination, and increased urge to urinate. These symptoms are usually caused by infection, injury, surgery, catheter, or other conditions that irritate the lower urinary tract. Pyridium will treat the symptoms of a urinary tract infection, but this medication does not treat the actual infection. Take the antibiotic that your doctor prescribes to treat your infection. Pyridium will most likely darken the color of your urine to an orange or red color. This is a normal effect and is not cause for alarm unless you have other symptoms such as pale or yellowed skin, fever, stomach pain, nausea, and vomiting. Darkened urine may also cause stains to your underwear, which may or may not be removed by laundering. It can also permanently stain soft contact lenses, and you should not wear them while taking this medicine.
--- NOTE | 2017-01-04 08:53 | PN ---
Progress Note - Progress Note Note: Patient urine cultures grew E coli 50-75,000. placed on keflex will wait for final cultures.
--- NOTE | 2017-01-05 07:19 | PN ---
Progress Note - Progress Note Note: Patient placed on keflex which is sensitivity to other first generation cephalosporin so no further action needed.
== END 2017-01-02 16:17 | disposition home or self-care (01) ==
LOC: ED 13:13
DX: O23.41 Unspecified infection of urinary tract in pregnancy, first trimester (principal); Z3A.10 10 weeks gestation of pregnancy; Z87.891 Personal history of nicotine dependence; Z88.0 Allergy status to penicillin
CPT/HCPCS: 81003; 81015; 87077; 87086; 87186

== ENCOUNTER 2017-02-03 16:27 | Emergency (ER) | payer OTHER ==
[2017-02-03] MEDS ORDERED: NS 0.9% 1000 ML* 1,000 ML IV ONE ×2 (16:56→18:24)
[2017-02-03] MEDS ORDERED: Ondansetron INJ* 2 MG/ML VIAL IV ONE (16:56)
[2017-02-03 17:25] LABS: Hematocrit 34 % (35-47); Hemoglobin 11.3 g/dl (12.0-16.0); Mean Corpuscular HGB Conc 33 g/dl (31-36); Mean Corpuscular Hemoglobin 25 pg (27-31); Mean Corpuscular Volume 78 fL (80-97); Mean Platelet Volume 8 um3 (7.4-10.4); Red Blood Count 4.43 10^6/ul (4.0-5.4); Red Cell Distribution Width 15 % (10.5-15); White Blood Count 5.8 10^3/ul (3.5-10.8)
[2017-02-03 17:40] LABS: BUN/Creatinine Ratio 14.6 (8-20); EGFR African American 212.1 (>60); EGFR Non-African American 164.9 (>60); Potassium 3.6 mmol/L (3.5-5.0)
[2017-02-03 19:48] LABS: Urine Bacteria Absent (Absent); Urine Bilirubin Negative (Negative); Urine Glucose Negative (Negative); Urine Nitrite Negative (Negative)
[2017-02-03] MEDS ORDERED: Ondansetron ODT TAB* 4 MG PO ONE (19:59)
[2017-02-03 20:43] VITALS: BP 116/52
--- NOTE | 2017-02-16 10:55 | ED ---
Mayela Curran Rebecca, scribed for Kurt Day MD on 02/03/17 at 1658 . - HPI Summary HPI Summary: Pt is a 21 y/o F who presents to the ED c/o nausea and hyperemesis for 2 days. Sx were worse this morning. Pt is concerned about dehydration. Sx aggravated by PO intake, alleviated by nothing. Is not experiencing any pain, with pain ranked 0/10. Denies diarrhea, dizziness, back pain, dysuria, hematuria, urine frequency. She is 13 weeks and has experienced hyperemesis with previous pregnancies. 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 WEIGHT SHIFTER is [place] [facility]. - History of Current Complaint Chief Complaint: EDGeneral Stated Complaint: VOMITING Time Seen by Provider: 02/03/17 16:56 Hx Obtained From: Patient Chief Complaint: Other: - [place]ern about dehydration Onset/Duration: Started Days Ago - 2 days ago, Still Present, Worse Since - this morning Timing: Intermittent Current Severity: None Pain Intensity: 0 Location of Pain: None Character: None Aggravating Factors: Other: - PO intake Alleviating Factors: Nothing Associated Signs and Symptoms: Positive: Nausea, Vomiting. Negative: Back Pain , Urinary Symptoms - Assessment Hx Now: Yes - 13 weeks IEA: 0 - Additional Pertinent History Primary Care Physician: [id number] Maternal Blood Type and Rh: A Positive - Allergies/Home Medications Allergies/Adverse Reactions: Allergies Allergy/AdvReac Type Severity Reaction Status Date / Time Amoxicillin Allergy Unknown Verified 01/02/17 13:20 Reaction Details Lorazepam [From Ativan] Allergy Unknown Verified 01/02/17 13:20 Reaction Details Penicillins [PCN] Allergy Unknown Verified 01/02/17 13:20 Reaction Details Lactose Intolerance (GI) AdvReac Intermediate Abdominal Verified 01/02/17 13:20 Pain Hydroxyzine [From Atarax] AdvReac See Comment Verified 01/02/17 13:20 Ziprasidone [From Geodon] AdvReac See Comment Verified 01/02/17 13:20 wheat AdvReac Intermediate Vomiting Uncoded 01/02/17 13:20 fruit AdvReac Unknown Uncoded 01/02/17 13:20 Reaction Details PMH/Surg Hx/FS Hx/Imm Hx Endocrine/Hematology History: Denies: Hx Anticoagulant Therapy, Hx Diabetes, Hx Thyroid Disease Cardiovascular History: Reports: Other Cardiovascular Problems/Disorders - MURMUR Denies: Hx Hypertension Respiratory History: Reports: Hx Asthma Denies: Hx Chronic Obstructive Pulmonary Disease (COPD), Hx Lung Cancer, Hx Pneumonia, Hx Pulmonary Embolism, Other Respiratory Problems/Disorders GI History: Reports: Other GI Disorders - wheat allergy and lactose intolerance Denies: Hx Gall Bladder Disease, Hx Gastrointestinal Bleed, Hx Ulcer, Hx Urosepsis History: Reports: Other Problems/Disorders - hx multiple UTIs Denies: Hx Kidney Stones, Hx Renal Disease Neurological History: Reports: Hx Seizures Denies: Hx Dementia, Hx Migraine, Hx Transient Ischemic Attacks (TIA) Psychiatric History: Reports: Hx Anxiety, Hx Depression, Hx Inpatient Treatment - [facility], [facility], [facility], Other Psychiatric Issues/ Disorders Denies: Hx Attention Deficit Hyperactivity Disorder, Hx Eating Disorder, Hx Panic Disorder, Hx Post Traumatic Stress Disorder, Hx Schizophrenia, Hx Bipolar Disorder, Hx Suicide Attempt, Hx of Violent Episodes Against Others, Hx Substance Abuse - Surgical History Surgery Procedure, Year, and Place: none - Immunization History Date of Tetanus Vaccine: Unk Date of Influenza Vaccine: None Infectious Disease History: No Infectious Disease History: Denies: Hx Hepatitis, Hx Human Immunodeficiency Virus (HIV), Hx of Known/ Suspected MRSA, History Other Infectious Disease, Traveled Outside the US in Last 30 Days - Family History Known Family History: Positive: Other - Biological mother - EtOH and drug abuse - Social History Alcohol Use: Rare Alcohol Amount: pt denies during Hx Substance Use: No Substance Use Type: Reports: Marijuana Substance Use Comment - Amount & Last Used: used in past, also ecstacy Hx Tobacco Use: Yes Smoking Status (MU): Former Smoker Type: Cigarettes Have You Smoked in the Last Year: No Review of Systems Negative: Fever, Chills Negative: Erythema Negative: Sore Throat Negative: Chest Pain Negative: Shortness Of Breath, Cough Positive: Vomiting, Nausea. Negative: Abdominal Pain, Diarrhea Negative: dysuria, frequency, hematuria Negative: Arthralgia - Denies back pain, Myalgia, Edema Negative: Rash Neurological: Other - Denies dizziness All Other Systems Reviewed And Are Negative: Yes Physical Exam - Summary Physical Exam Summary: Constitutional: Well-developed, Well-nourished, Alert. (-) Distressed Skin: Warm, Dry HENT: Normocephalic; Atraumatic Eyes: Conjunctiva normal Neck: Musculoskeletal ROM normal neck. (-) JVD, (-) Stridor, (-) Tracheal deviation Cardio: Rhythm regular, rate normal, Heart sounds normal; Intact distal pulses; The pedal pulses are 2+ and symmetric. Radial pulses are 2+ and symmetric. (-) Murmur Pulmonary/Chest wall: Effort normal. (-) Respiratory distress, (-) Wheezes, (-) Rales Abd: Soft, (-) Tenderness, (-) Distension, (-) Guarding, (-) Rebound Musculoskeletal: (-) Edema Lymph: (-) Cervical adenopathy Neuro: Alert, Oriented x3 Psych: Mood and affect Normal - Physical Exam Triage Information Reviewed: Yes Vital Signs Reviewed: Yes Diagnostics - Vital Signs Vital Signs Temp Pulse Resp BP Pulse Ox 02/03/17 16:41 118 96 02/03/17 16:31 97.8 F 134 20 113/67 98 02/03/17 16:29 98.3 F 130 20 113/67 100 - Laboratory Result Diagrams: 02/03/17 17:10 02/03/17 17:10 Lab Statement: Any lab studies that have been ordered have been reviewed, and results considered in the medical decision making process. - EKG 1640 Cardiac Rate: NL - 91 bpm EKG Rhythm: Sinus Rhythm EKG Interpretation: No STEMI Re-Evaluation - Re-Evaluation First Eval Re-Evaluation Time: 19:49 Change: Improved Comment: Was able to kepe crackers and giner clifford down. Confirms she was on Zofran for her last as well. Course/Dx - Course Assessment/Plan: Pt is a 21 y/o F who is 13 weeks with a CC of nausea and hyperemesis for 2 days. Denies diarrhea, dizziness, back pain, dysuria, hematuria, urine frequency. Has experienced hyperemesis with previous pregnancies. Upon reevaluation, pt has tolerated PO intake. She will be D/C to home with a Dx of hyperemesis gravidarum with a followup with her WEIGHT SHIFTER and an Rx for Zofran. - Diagnoses Provider Diagnoses: Hyperemesis gravidarum Discharge - Discharge Plan Condition: Stable Disposition: HOME Prescriptions: Ondansetron ODT TAB* [Zofran 4 MG Odt TAB*] 4 mg PO Q8H PRN #9 tab.odt PRN Reason: Nausea/Vomiting Patient Education Materials: Hyperemesis Gravidarum (ED) Referrals: Donna Ruvalcaba MD [Medical Doctor] - 3 Days (Follow up with WEIGHT SHIFTER in 2-3 days. ) The documentation as recorded by the Mayela dudley Rebecca accurately reflects the service I personally performed and the decisions made by , Kurt Day MD.
== END 2017-02-03 20:45 | disposition home or self-care (01) ==
LOC: ED 16:27
DX: O21.0 Mild hyperemesis gravidarum (principal); Z3A.13 13 weeks gestation of pregnancy; R01.1 Cardiac murmur, unspecified; Z88.8 Allergy status to other drugs, medicaments and biological substances; Z87.891 Personal history of nicotine dependence; Z79.899 Other long term (current) drug therapy
CPT/HCPCS: 36415; 80048; 81003; 81015; 85027; 87086; 93005; 96361; 96374; 99283; J2405

== ENCOUNTER 2017-02-25 17:05 | Emergency (ER) | payer OTHER ==
[2017-02-25 23:57] LABS: Urine Bilirubin Negative (Negative); Urine Glucose Negative (Negative); Urine Nitrite Negative (Negative)
[2017-02-26 00:12] VITALS: BP 126/54
--- NOTE | 2017-02-26 21:46 | ED ---
- HPI Summary HPI Summary: Patient is a 18 week female who presents to ED with right sided abdominal pain after her 1 year old pushed her head into the right side of her abdomen. Since that time she has felt cramping, but no discharge or bleeding. She states she had an appt for US anatomy this week, but had to cancel. She denies other symptoms. Otherwise healthy . Denies other symptoms. - History of Current Complaint Chief Complaint: EDUrogenitalProblems Stated Complaint: 17 WEEKS PREG CRAMPING Time Seen by Provider: 02/25/17 20:36 Hx Obtained From: Patient Chief Complaint: Concern for Embryonic Dem, Pain Onset/Duration: Started Hours Ago Timing: Constant Severity: Moderate Current Severity: Mild Pain Intensity: 2 Location of Pain: Right Side Character: Cramping Aggravating Factors: Nothing Alleviating Factors: Nothing - Assessment Hx Now: Yes - 13 weeks SAB: 1 IEA: 0 Contraction Intensity: No Contractions Contraction Pattern: No Contractions Hx Hysterectomy: No - Risk Factors Ectopic Risk Factor: Negative Ovarian Torsion Risk Factor: Reproductive Age - Additional Pertinent History Primary Care Physician: [id number] Maternal Blood Type and Rh: A Positive - Allergies/Home Medications Allergies/Adverse Reactions: Allergies Allergy/AdvReac Type Severity Reaction Status Date / Time Amoxicillin Allergy Unknown Verified 01/02/17 13:20 Reaction Details Lorazepam [From Ativan] Allergy Unknown Verified 01/02/17 13:20 Reaction Details Penicillins [PCN] Allergy Unknown Verified 01/02/17 13:20 Reaction Details Lactose Intolerance (GI) AdvReac Intermediate Abdominal Verified 01/02/17 13:20 Pain Hydroxyzine [From Atarax] AdvReac See Comment Verified 01/02/17 13:20 Ziprasidone [From Geodon] AdvReac See Comment Verified 01/02/17 13:20 wheat AdvReac Intermediate Vomiting Uncoded 01/02/17 13:20 fruit AdvReac Unknown Uncoded 01/02/17 13:20 Reaction Details PMH/Surg Hx/FS Hx/Imm Hx Previously Healthy: Yes Endocrine/Hematology History: Denies: Hx Anticoagulant Therapy, Hx Diabetes, Hx Thyroid Disease Cardiovascular History: Reports: Other Cardiovascular Problems/Disorders - MURMUR Denies: Hx Hypertension Respiratory History: Reports: Hx Asthma Denies: Hx Chronic Obstructive Pulmonary Disease (COPD), Hx Lung Cancer, Hx Pneumonia, Hx Pulmonary Embolism, Other Respiratory Problems/Disorders GI History: Reports: Other GI Disorders - wheat allergy and lactose intolerance Denies: Hx Gall Bladder Disease, Hx Gastrointestinal Bleed, Hx Ulcer, Hx Urosepsis History: Reports: Other Problems/Disorders - hx multiple UTIs Denies: Hx Kidney Stones, Hx Renal Disease Neurological History: Reports: Hx Seizures Denies: Hx Dementia, Hx Migraine, Hx Transient Ischemic Attacks (TIA) Psychiatric History: Reports: Hx Anxiety, Hx Depression, Hx Inpatient Treatment - [facility], Hx Community [facility] Health Tx - [facility], [facility], Other Psychiatric Issues/ Disorders Denies: Hx Attention Deficit Hyperactivity Disorder, Hx Eating Disorder, Hx Panic Disorder, Hx Post Traumatic Stress Disorder, Hx Schizophrenia, Hx Bipolar Disorder, Hx Suicide Attempt, Hx of Violent Episodes Against Others, Hx Substance Abuse - Surgical History Surgery Procedure, Year, and Place: none - Immunization History Date of Tetanus Vaccine: Unk Date of Influenza Vaccine: None Hx Pertussis Vaccination: No Immunizations Up to Date: Unable to Obtain/Confirm Infectious Disease History: No Infectious Disease History: Denies: Hx Hepatitis, Hx Human Immunodeficiency Virus (HIV), Hx of Known/ Suspected MRSA, History Other Infectious Disease, Traveled Outside the [place] in Last 30 Days - Family History Known Family History: Positive: None, Unknown - Adopted, Other - Biological mother - EtOH and drug abuse - Social History Occupation: Unemployed Lives: With Family Alcohol Use: Rare Alcohol Amount: pt denies during Hx Substance Use: No Substance Use Type: Reports: Marijuana Substance Use Comment - Amount & Last Used: used in past, also ecstacy Hx Tobacco Use: Yes Smoking Status (MU): Former Smoker Type: Cigarettes Have You Smoked in the Last Year: No Review of Systems Constitutional: Negative Eyes: Negative Cardiovascular: Negative Respiratory: Negative Positive: Abdominal Pain - right sided cramping Genitourinary: Negative Musculoskeletal: Negative Neurological: Negative Psychological: Normal All Other Systems Reviewed And Are Negative: Yes Physical Exam - Physical Exam Triage Information Reviewed: Yes Vital Signs Reviewed: Yes Appearance: Positive: Well-Appearing, Well-Nourished Skin: Positive: Warm, Skin Color Reflects Adequate Perfusion Head/Face: Positive: Normal Head/Face Inspection Eyes: Positive: EOMI, MELITA, Conjunctiva Clear Neck: Positive: Supple, No Lymphadenopathy Respiratory/Lung Sounds: Positive: Clear to Auscultation, Breath Sounds Present Cardiovascular: Positive: Normal, RRR, Pulses are Symmetrical in both Upper and Lower Extremities Musculoskeletal: Positive: Normal, Strength/ROM Intact Neurological: Positive: Speech Normal Psychiatric: Positive: Normal AVPU Assessment: Alert - [place] Coma Scale Eye: 4 - Spontaneous Motor: 6 - Obeys Commands Verbal: 5 - Oriented Coma Scale Total: 15 Diagnostics - Vital Signs Vital Signs Temp Pulse Resp BP Pulse Ox 02/26/17 00:11 98.2 F 66 16 126/54 02/25/17 20:00 98.8 F 81 18 104/57 97 02/25/17 18:46 98.3 F 79 16 115/68 97 02/25/17 17:25 98.6 F 88 20 115/67 99 02/25/17 17:23 98.1 F - Laboratory Lab Results: Lab Results 02/25/17 Range/Units 23:42 Urine Color Yellow Urine Appearance Cloudy Urine pH 5.0 (5-9) Ur Specific [place] 1.020 (1.010-1.030) Urine Protein Negative (Negative) Urine Ketones Negative (Negative) Urine Blood Negative (Negative) Urine Nitrate Negative (Negative) Urine Bilirubin Negative (Negative) Urine Urobilinogen Negative (Negative) Ur Leukocyte Esterase Negative (Negative) Urine Glucose Negative (Negative) Lab Statement: Any lab studies that have been ordered have been reviewed, and results considered in the medical decision making process. Course/Dx - Course Course Of Treatment: Patient presents with right sided abdominal pain. 17 weeks . Doppler HR or fetus was WNL. No bleeding or vaginal discharge. Patient reassured. Patient made aware of plan and is OK with discharge. Patient will follow up with PCP and return if symptoms become worse. Return precautions given, medications and side effects reviewed. - Differential Diagnosis/HQI/PQRI: Threatened , /Embryonic Demise, Early , Vaginal Bleeding - Diagnoses Provider Diagnoses: Abdominal pain affecting Discharge - Discharge Plan Condition: Stable Disposition: HOME Patient Education Materials: Abdominal Pain in (ED) Referrals: Suzi Hernandez MD [Primary Care Provider] - Additional Instructions: Follow up with PCP Follow up with OBGYN. Call office tomorrow. If you develop worsening symptoms, return to ED right away.
== END 2017-02-26 00:11 | disposition home or self-care (01) ==
LOC: ED 17:05
DX: O26.892 Other specified pregnancy related conditions, second trimester (principal); R10.9 Unspecified abdominal pain; Z87.891 Personal history of nicotine dependence; Z3A.17 17 weeks gestation of pregnancy
CPT/HCPCS: 81003; 99282

== ENCOUNTER 2017-03-02 18:50 | Emergency (ER) | payer OTHER ==
--- NOTE | 2017-03-03 01:47 | ED ---
- HPI Summary HPI Summary: 21F at 17 weeks presents with abdominal cramping for a week. She was seen here for the same thing last week and called her obgyn and they said to watch it and if it got worst to come to the ED. She states the pain is mostly in LLQ. She denies any n/v/d/c, dysuria, flank pain, frequency, urgency, vaginal discharge, vaginal bleeding or leaking of fluids. She does have history of ovarian cysts. She states when she gets the pain it last for 10 mins to 2 hours and does not feel like nolan mccormick or contractions. She has been using tyenlol for pain. - History of Current Complaint Chief Complaint: EDAbdPain Stated Complaint: 17 WKS PREG/CRAMPING Time Seen by Provider: 03/02/17 22:45 Pain Intensity: 7 - Assessment Hx Now: Yes - 13 weeks SAB: 1 IEA: 0 Hx Hysterectomy: No - Additional Pertinent History Primary Care Physician: [id number] Maternal Blood Type and Rh: A Positive - Allergies/Home Medications Allergies/Adverse Reactions: Allergies Allergy/AdvReac Type Severity Reaction Status Date / Time Amoxicillin Allergy Unknown Verified 03/02/17 19:03 Reaction Details Lorazepam [From Ativan] Allergy Unknown Verified 03/02/17 19:03 Reaction Details Penicillins [PCN] Allergy Unknown Verified 03/02/17 19:03 Reaction Details Lactose Intolerance (GI) AdvReac Intermediate Abdominal Verified 03/02/17 19:03 Pain Hydroxyzine [From Atarax] AdvReac See Comment Verified 03/02/17 19:03 Ziprasidone [From Geodon] AdvReac See Comment Verified 03/02/17 19:03 wheat AdvReac Intermediate Vomiting Uncoded 03/02/17 19:03 fruit AdvReac Unknown Uncoded 03/02/17 19:03 Reaction Details PMH/Surg Hx/FS Hx/Imm Hx Endocrine/Hematology History: Denies: Hx Anticoagulant Therapy, Hx Diabetes, Hx Thyroid Disease Cardiovascular History: Reports: Other Cardiovascular Problems/Disorders - MURMUR Denies: Hx Hypertension Respiratory History: Reports: Hx Asthma Denies: Hx Chronic Obstructive Pulmonary Disease (COPD), Hx Lung Cancer, Hx Pneumonia, Hx Pulmonary Embolism, Other Respiratory Problems/Disorders GI History: Reports: Other GI Disorders - wheat allergy and lactose intolerance Denies: Hx Gall Bladder Disease, Hx Gastrointestinal Bleed, Hx Ulcer, Hx Urosepsis History: Reports: Other Problems/Disorders - hx multiple UTIs Denies: Hx Kidney Stones, Hx Renal Disease Neurological History: Reports: Hx Seizures Denies: Hx Dementia, Hx Migraine, Hx Transient Ischemic Attacks (TIA) Psychiatric History: Reports: Hx Anxiety, Hx Depression, Hx Inpatient Treatment - [facility], [facility], Other Psychiatric Issues/ Disorders Denies: Hx Attention Deficit Hyperactivity Disorder, Hx Eating Disorder, Hx Panic Disorder, Hx Post Traumatic Stress Disorder, Hx Schizophrenia, Hx Bipolar Disorder, Hx Suicide Attempt, Hx of Violent Episodes Against Others, Hx Substance Abuse - Surgical History Surgery Procedure, Year, and Place: none - Immunization History Date of Tetanus Vaccine: Unk Date of Influenza Vaccine: None Infectious Disease History: No Infectious Disease History: Denies: Hx Hepatitis, Hx Human Immunodeficiency Virus (HIV), Hx of Known/ Suspected MRSA, History Other Infectious Disease, Traveled Outside the [place] in Last 30 Days - Family History Known Family History: Positive: None, Unknown - Adopted, Other - Biological mother - EtOH and drug abuse - Social History Alcohol Use: Rare Alcohol Amount: pt denies during Hx Substance Use: No Substance Use Type: Reports: Marijuana Substance Use Comment - Amount & Last Used: used in past, also ecstacy Hx Tobacco Use: Yes Smoking Status (MU): Former Smoker Type: Cigarettes Have You Smoked in the Last Year: No Review of Systems Negative: Fever Negative: Chest Pain Negative: Shortness Of Breath Positive: Abdominal Pain. Negative: Vomiting, Diarrhea, Nausea Negative: dysuria All Other Systems Reviewed And Are Negative: Yes Physical Exam - Physical Exam Triage Information Reviewed: Yes Vital Signs Reviewed: Yes Appearance: Positive: Well-Appearing Skin: Positive: Warm, Dry Head/Face: Positive: Normal Head/Face Inspection Eyes: Positive: Normal, Conjunctiva Clear ENT: Positive: Normal ENT inspection, Pharynx normal, TMs normal Respiratory/Lung Sounds: Positive: Clear to Auscultation, Breath Sounds Present Cardiovascular: Positive: Normal, RRR Abdomen Description: Positive: Soft, Other: - mild LLQ pain on exam Bowel Sounds: Positive: Present Diagnostics - Vital Signs Vital Signs Temp Pulse Resp BP Pulse Ox 03/02/17 20:11 98.7 F 91 18 118/68 99 06/20/17 19:03 98.6 F 105 16 115/61 99 - Laboratory Lab Statement: Any lab studies that have been ordered have been reviewed, and results considered in the medical decision making process. - Ultrasound No standard instances Ultrasound Interpretation: No Acute Changes - low-lying placenta with previa, breech position Ultrasound Interpretation Completed By: Radiologist Course/Dx - Course Course Of Treatment: 21F presents with abdominal pain for a week. is 17 weeks . no vaginal bleeding or leaking of fluid. pain last 10mins-2hours and does not feel like contractions. HR 152. urine was never sent. on exam tender in LLQ so got u/s shows no cause for pain. told to follow up with obgyn. patient understands and agrees with plan - Differential Diagnosis/HQI/PQRI: Threatened , Intrauterine , Ovarian Cyst - Diagnoses Provider Diagnoses: Abdominal pain in Discharge - Discharge Plan Condition: Good Disposition: HOME Patient Education Materials: Abdominal Pain in (ED) Referrals: Suzi Hernandez MD [Primary Care Provider] - Additional Instructions: Take Tylenol for pain Follow up with obgyn Return to ED if develop any new or worsening symptoms
[2017-03-03 06:59] VITALS: BP 116/67
--- NOTE | 2017-03-03 07:50 | RAD ---
Indication: Reported 17 weeks 5 days gestation. LEFT lower quadrant pain and cramping. Comparison: No relevant prior exams available on the [facility] PACS for comparison. Technique: Transabdominal obstetrical ultrasound. REPORT: Single intrauterine fetus is in breech presentation. Spontaneous motion and cardiac activity present. heart rate: 142 bpm. The volume of amniotic fluid is qualitatively normal. Amniotic fluid index is 12.4 cm. (Normal range 5-25 cm) The cervical length is 3.6 cm. Anterior placenta with the inferior placental margin extending to the margin of the internal os but not covering the internal os. Mean BPD: 3.9 cm corresponding with 17 weeks 6 days Mean HC: 14.7 cm corresponding with 17 weeks 6 days Mean AC: 12.1 cm corresponding with 17 weeks 6 days Mean FL: 2.6 cm corresponding with 17 weeks 6 days Composite gestational age: 17 weeks 6 days weight: 210 g +/- 31 g Unremarkable bilateral adnexal regions. No abnormality evident in the LEFT adnexal region to correspond with the region of pain. IMPRESSION: 1. Single intrauterine gestation in breech presentation with ultrasound age based on this exam of 17 weeks 6 days. Normal movement and cardiac activity. 2. Anterior placenta with the inferior placental margin extending to the margin of the internal os but not covering the internal os. 3. No abnormality evident in the LEFT adnexal region to correspond with the region of pain.
== END 2017-03-03 03:05 | disposition home or self-care (01) ==
LOC: ED 18:50
DX: O26.892 Other specified pregnancy related conditions, second trimester (principal); R10.9 Unspecified abdominal pain; Z87.891 Personal history of nicotine dependence; Z3A.17 17 weeks gestation of pregnancy
CPT/HCPCS: 76815; 99282

== ENCOUNTER 2017-07-30 20:27 | Inpatient (IN) | payer SELFPAY ==
[2017-07-30 22:23] LABS: Urine Bacteria Absent (Absent); Urine Bilirubin Negative (Negative); Urine Glucose Negative (Negative); Urine Nitrite Negative (Negative)
[2017-07-30] MEDS ORDERED: diPHENhydraMINE PO* 50 MG PO ONE (23:12)
[2017-07-30] MEDS ORDERED: diPHENhydraMINE PO* 50 MG ONE (23:21)
[2017-07-31] MEDS ORDERED: Nalbuphine* 20 MG/ML 1 ML VIAL IV PRN ×2 (02:35→06:51)
[2017-07-31] MEDS ORDERED: Promethazine INJ(RESTRICTED)* 25 MG/ML 1 ML VIAL IV ONE (02:38)
[2017-07-31] MEDS ORDERED: Promethazine INJ(RESTRICTED)* 25 MG/ML 1 ML VIAL ONE (02:45)
[2017-07-31] MEDS ORDERED: Nalbuphine* 20 MG/ML 1 ML VIAL ONE (02:45)
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
[2017-07-31 05:00] LABS: Hematocrit 26 % (35-47); Hemoglobin 8.2 g/dl (12.0-16.0); Mean Corpuscular HGB Conc 31 g/dl (31-36); Mean Corpuscular Hemoglobin 20 pg (27-31); Mean Corpuscular Volume 63 fL (80-97); Mean Platelet Volume 10 um3 (7.4-10.4); Red Blood Count 4.14 10^6/ul (4.0-5.4); Red Cell Distribution Width 19 % (10.5-15); White Blood Count 8.3 10^3/ul (3.5-10.8)
[2017-07-31 05:04] LABS: Add Diff/Slide Review? Slide Review Added; Comments Flag Yes
[2017-07-31] MEDS ORDERED: ceFAZolin 2 GM PREMIX (*) 2 GM/50 ML BAG IVPB ONE ×2 (05:21→05:24)
[2017-07-31] MEDS ORDERED: Sodium Citrate/Citric Acid* 15 ML UDC ONE (05:22)
[2017-07-31] MEDS ORDERED: ceFAZolin 1 GM VIAL(*) ONE (05:23)
[2017-07-31] MEDS ORDERED: Morphine PF AMP (0.5MG/ML)* 5 MG/10 ML AMP ONE (05:27)
[2017-07-31 05:44] LABS: Microcytosis 2+; Polychromasia 1+
[2017-07-31 05:45] LABS: Add Path Review? YES
[2017-07-31] MEDS ORDERED: Ondansetron INJ* 2 MG/ML VIAL ONE (06:13)
[2017-07-31] MEDS ORDERED: OXYTOCIN* 10 UNITS/ML 1 ML VIAL ONE (06:13)
[2017-07-31] MEDS ORDERED: Phenylephrine IV* 40 MCG/ML 10 ML SYRINGE ONE (06:14)
[2017-07-31] MEDS ORDERED: Ketorolac INJ* 30 MG/ML 1 ML VIAL IV PRN (06:50)
[2017-07-31] MEDS ORDERED: fentaNYL* 50 MCG/ML 2 ML VIAL (100 MCG VIAL) IV PRN (06:50)
[2017-07-31] MEDS ORDERED: Ondansetron INJ* 2 MG/ML VIAL IV PRN (06:51)
[2017-07-31] MEDS ORDERED: oxyCODONE/Acetamin 5/325 MG* TAB PO PRN (06:51)
[2017-07-31] MEDS ORDERED: diPHENhydraMINE IV* 50 MG/ML 1 ml VIAL (BENADRYL) IV PRN (06:51)
[2017-07-31] MEDS ORDERED: Naloxone* 0.4 MG/ML 1 ML VIAL IV PRN (06:51)
[2017-07-31] MEDS ORDERED: Naloxone* 2 MG in NS 0.9% 250 ML* 250 ML IV PRN (06:51)
[2017-07-31] MEDS ORDERED: Oxytocin in LR* 20 UNITS/1,000 ML BAG IVPB ONE (07:01)
[2017-07-31] MEDS ORDERED: EPHEDrine (Pressors)* 50 MG/ML VIAL ONE (07:11)
[2017-07-31] MEDS ORDERED: Dibucaine 1% 28.35 GM TUBE PR PRN (07:27)
[2017-07-31] MEDS ORDERED: Witch Hazel PAD* JAR TOPICAL PRN (07:27)
[2017-07-31] MEDS ORDERED: Glycerin ADULT SUPP PR PRN (07:27)
[2017-07-31] MEDS: Docusate CAP* 100 MG PO SCH ×3 (09:00→20:01)
[2017-07-31] MEDS: Simethicone TAB* 80 MG TAB.CHEW PO SCH ×3 (09:02→20:01)
[2017-07-31] MEDS: Ketorolac INJ* 30 MG/ML 1 ML VIAL IV PRN ×2 (10:38→16:50)
[2017-07-31] MEDS ORDERED: Zolpidem TAB* 5 MG PO PRN (21:00)
[2017-07-31] MEDS ORDERED: diPHENhydraMINE PO* 25 MG PO PRN (23:34)
[2017-08-01] MEDS: Ketorolac INJ* 30 MG/ML 1 ML VIAL IV PRN (00:13)
--- NOTE | 2017-08-01 03:03 | OP ---
OPERATIVE REPORT: DATE OF OPERATION: 07/31/17 DATE OF : [birth year] SURGEON: Jerica Martines MD SIDING MECHANIC: Bobby Murdock CNM PRE-OP DIAGNOSES: Intrauterine gestation at 39 and 1 weeks gestational age, category II heart tracing, remote from delivery. POST-OP DIAGNOSES: Intrauterine gestation at 39 and 1 weeks gestational age, category II heart tracing, remote from delivery as well as thick meconium. OPERATIVE PROCEDURE: Primary low transverse section. ESTIMATED BLOOD LOSS: 800 mL. FLUID: Crystalloid. DRAINS: Sanches catheter. COUNTS: Counts were all correct. INDICATION: The patient presented in labor, progressed to 5 cm, but began having recurrent deep late and variable decels, several of which became prolonged, lasting approximately 3 minutes. Therefore, discussion was had with the patient and the decision was made to proceed with section. FINDINGS: Male , Apgars 8 and 9, weight 7 pounds 12 ounces. Normal appearing uterus, ovaries, and tubes. Normal appearing placenta. Thick meconium. DESCRIPTION OF PROCEDURE: After informed consent was signed, the patient was taken to the operating room where she was given a spinal anesthesia that was found to be adequate. She was prepped and draped in the dorsal supine position with a leftward tilt. A Pfannenstiel skin incision was made with a scalpel and carried down to the underlying layer of fascia. The fascia was incised on either side of the midline and the fascial incision extended laterally with the Limon scissors. The inferior edge of the fascial incision was grasped with Amanda clamps, tented up and dissected down with a combination of sharp and blunt dissection. Then, the superior edge of the fascial incision was grasped with Amanda clamps, tented up, and dissected down with a combination of sharp and blunt dissection. The rectus muscles were in the midline and the peritoneum was entered bluntly. The peritoneal incision was extended laterally with a combination of sharp and blunt dissection. A bladder blade was inserted and a transverse incision was made in the lower uterine segment with the scalpel. The uterine incision was extended superiorly and inferiorly with fundal pressure. The infant's head was then delivered with fundal pressure followed by the rest of the body. There was loose nuchal cord that was easily reduced. The cord was milked towards the baby and then clamped x2 and cut. The baby was handed to the animal caretaker supervisor. The placenta was delivered with uterine massage and gentle cord traction. The uterus was then exteriorized and the uterine incision was closed with 0 Vicryl in a running locked fashion with the second layer of suture imbricating the first. The abdomen was irrigated. The uterus was placed back into the abdominal cavity. Good hemostasis was noted at the uterine incision. The peritoneum was closed with 3-0 Vicryl in a running unlocked fashion. The fascia was closed with 0 Vicryl in a running unlocked fashion and the skin was closed with 4-0 Monocryl in a running subcuticular fashion. The incision was cleaned. Mastisol and Steri-Strips were placed and the patient was moved to the stretcher and taken to the recovery room in stable condition. [id number]/CPS #: [id number] ADAM
[2017-08-01] MEDS: oxyCODONE/Acetamin 5/325 MG* TAB PO PRN ×4 (03:25→20:41)
[2017-08-01] MEDS: Ibuprofen TAB* 600 MG PO PRN ×3 (07:28→19:52)
[2017-08-01] MEDS: Docusate CAP* 100 MG PO SCH ×3 (09:51→20:40)
[2017-08-01] MEDS: Simethicone TAB* 80 MG TAB.CHEW PO SCH ×5 (09:51→20:40)
[2017-08-01] MEDS: Ferrous Gluconate TAB* 324 MG TAB PO SCH ×2 (09:52→20:40)
[2017-08-01 09:58] LABS: Comments Flag Yes; Hematocrit 26 % (35-47); Hemoglobin 8.1 g/dl (12.0-16.0); Mean Corpuscular HGB Conc 32 g/dl (31-36); Mean Corpuscular Hemoglobin 20 pg (27-31); Mean Platelet Volume 9 um3 (7.4-10.4); Red Blood Count 4.03 10^6/ul (4.0-5.4); Red Cell Distribution Width 18 % (10.5-15); White Blood Count 10.9 10^3/ul (3.5-10.8)
[2017-08-01 09:59] LABS: Mean Corpuscular Volume 64 fL (80-97)
[2017-08-01] MEDS ORDERED: Influenza VAC *QUAD* 2017-18* 0.5 ML SYRINGE IM ONE (16:00)
[2017-08-01] MEDS: Acetaminophen TAB* 325 MG PO PRN (16:35)
[2017-08-02] MEDS: oxyCODONE/Acetamin 5/325 MG* TAB PO PRN ×5 (00:56→21:55)
[2017-08-02] MEDS: Ibuprofen TAB* 600 MG PO PRN ×4 (03:10→21:55)
[2017-08-02] MEDS: Simethicone TAB* 80 MG TAB.CHEW PO SCH ×4 (07:38→20:22)
[2017-08-02] MEDS: Ferrous Gluconate TAB* 324 MG TAB PO SCH ×2 (07:38→20:22)
[2017-08-02] MEDS: Docusate CAP* 100 MG PO SCH ×3 (07:38→20:23)
[2017-08-02] MEDS ORDERED: Magnesium Hydroxide LIQ* 30 ML UDC ONE (15:52)
[2017-08-02] MEDS ORDERED: Magnesium Hydroxide LIQ* 30 ML UDC PO PRN (15:58)
[2017-08-03] MEDS: Docusate CAP* 100 MG PO SCH ×2 (07:54→15:02)
[2017-08-03] MEDS: Ferrous Gluconate TAB* 324 MG TAB PO SCH (07:54)
[2017-08-03] MEDS: Simethicone TAB* 80 MG TAB.CHEW PO SCH ×3 (07:54→17:23)
[2017-08-03] MEDS: Ibuprofen TAB* 600 MG PO PRN ×2 (07:54→15:00)
[2017-08-03] MEDS: Acetaminophen TAB* 325 MG PO PRN ×3 (07:55→17:22)
[2017-08-03 09:02] VITALS: BP 126/76
--- NOTE | 2017-08-03 10:10 | PTEDU ---
Patient Name: DUDLEY COOPER DUDLEY COOPER selected video: Never Ever Shake a Baby to view on 08/03/2017 at 10:09:19 AM from [facility] [id number]
[2017-08-04] MEDS ORDERED: Ampicillin IV* 2 GM in NS 0.9% 100 ML* 100 ML IVPB ONE (11:55)
[2017-08-04] MEDS ORDERED: Gentamicin ADULT (*) 80 MG in NS 0.9% 100 ML* 100 ML IVPB SCH (14:00)
== END 2017-08-03 17:58 | disposition home or self-care (01) | DRG 766 ==
LOC: MCHOBOUT 20:27 → MCHOB 07-31 03:43 → EEVIPCON 07-31 03:43 → MCHOB 07-31 09:14
PROVIDERS: ADMIT Midwife; ATTEND Obstetrics & Gynecology
PROC: 10907ZC Drainage of Amniotic Fluid, Therapeutic from Products of Conception, Via Natural or Artificial Opening (ICD-10-PCS; 2017-07-31)
PROC: 4A1HXCZ Monitoring of Products of Conception, Cardiac Rate, External Approach (ICD-10-PCS; 2017-07-31)
PROC: 10D00Z1 Extraction of Products of Conception, Low, Open Approach (ICD-10-PCS; principal; 2017-07-31 05:34)
DX: O76 Abnormality in fetal heart rate and rhythm complicating labor and delivery (principal); L29.9 Pruritus, unspecified; O90.89 Other complications of the puerperium, not elsewhere classified; Z37.0 Single live birth; O77.0 Labor and delivery complicated by meconium in amniotic fluid; Z91.410 Personal history of adult physical and sexual abuse; O69.81X0 Labor and delivery complicated by cord around neck, without compression, not applicable or unspecified; Z3A.39 39 weeks gestation of pregnancy; Z88.0 Allergy status to penicillin; Z88.1 Allergy status to other antibiotic agents; Z88.8 Allergy status to other drugs, medicaments and biological substances; Z91.018 Allergy to other foods
CPT/HCPCS: 36415; 81003; 81015; 85025; 85060; 86850; 86900; 86901; 87086; 88307; 90686; A9270-GY; J0690; J1885; J2300; J2405; J2550; J2590

== ENCOUNTER 2017-08-29 08:45 | Emergency (ER) | payer SELFPAY ==
--- NOTE | 2017-08-29 09:56 | ED ---
Throat Pain/Nasal Congestion - HPI Summary HPI Summary: 22 female presents to ED with complaints of left ear pain that began last night. Patient states she was sleeping when she sneezed and felt a popping in her left ear and then significant pain. Patient denies any known fever, drainage or loss of hearing. Patient states she took ibuprofen around 730am that did give some relief. States she has been suffering from cold like symptoms , congestion and coughing for the past week. No other complaints. Denies other medication use. No PMHx. Patient is currently . - History of Current Complaint Chief Complaint: EDEarPain Time Seen by Provider: 08/29/17 08:58 Hx Obtained From: Patient Onset/Duration: Sudden Onset, Still Present, Worse Since Severity: Moderate Associated Signs And Symptoms: Positive: Sinus Discomfort, Nasal Discharge Cough: Nonproductive - Allergies/Home Medications Allergies/Adverse Reactions: Allergies Allergy/AdvReac Type Severity Reaction Status Date / Time Amoxicillin Allergy Unknown Verified 07/01/17 23:27 Reaction Details Lorazepam [From Ativan] Allergy Unknown Verified 07/01/17 23:27 Reaction Details Penicillins [PCN] Allergy Unknown Verified 07/01/17 23:27 Reaction Details Lactose Intolerance (GI) AdvReac Intermediate Abdominal Verified 07/01/17 23:27 Pain Hydroxyzine [From Atarax] AdvReac See Comment Verified 07/01/17 23:27 Ziprasidone [From Geodon] AdvReac See Comment Verified 07/01/17 23:27 wheat AdvReac Intermediate Vomiting Uncoded 07/01/17 23:27 fruit AdvReac Unknown Uncoded 07/01/17 23:27 Reaction Details PMH/Surg Hx/FS Hx/Imm Hx Endocrine/Hematology History: Denies: Hx Anticoagulant Therapy, Hx Diabetes, Hx Thyroid Disease Cardiovascular History: Reports: Other Cardiovascular Problems/Disorders - MURMUR Denies: Hx Hypertension Respiratory History: Reports: Hx Asthma Denies: Hx Chronic Obstructive Pulmonary Disease (COPD), Hx Lung Cancer, Hx Pneumonia, Hx Pulmonary Embolism, Other Respiratory Problems/Disorders GI History: Reports: Other GI Disorders - wheat allergy and lactose intolerance Denies: Hx Gall Bladder Disease, Hx Gastrointestinal Bleed, Hx Ulcer, Hx Urosepsis History: Reports: Other Problems/Disorders - hx multiple UTIs Denies: Hx Kidney Stones, Hx Renal Disease Neurological History: Reports: Hx Seizures Denies: Hx Dementia, Hx Migraine, Hx Transient Ischemic Attacks (TIA) Psychiatric History: Reports: Hx Anxiety, Hx Depression, Hx Inpatient Treatment - [facility], [facility], [facility], Other Psychiatric Issues/ Disorders - borderline personality, bipolar, PTSD Denies: Hx Attention Deficit Hyperactivity Disorder, Hx Eating Disorder, Hx Panic Disorder, Hx Post Traumatic Stress Disorder, Hx Schizophrenia, Hx Bipolar Disorder, Hx Suicide Attempt, Hx of Violent Episodes Against Others, Hx Substance Abuse - Surgical History Surgery Procedure, Year, and Place: none - Immunization History Date of Tetanus Vaccine: Unk Date of Influenza Vaccine: None Immunizations Up to Date: Yes Infectious Disease History: No Infectious Disease History: Denies: Hx Hepatitis, Hx Human Immunodeficiency Virus (HIV), Hx of Known/ Suspected MRSA, History Other Infectious Disease, Traveled Outside the [place] in Last 30 Days - Family History Known Family History: Positive: None, Unknown - Adopted, Other - Biological mother - EtOH and drug abuse - Social History Alcohol Use: None Alcohol Amount: pt denies during Hx Substance Use: No Substance Use Type: Reports: None, Marijuana Substance Use Comment - Amount & Last Used: used in past, also ecstacy Hx Tobacco Use: Yes Smoking Status (MU): Former Smoker Type: Cigarettes Have You Smoked in the Last Year: No Review of Systems Constitutional: Negative Positive: Sore Throat, Ear Ache, Nasal Discharge Cardiovascular: Negative Positive: Cough Gastrointestinal: Negative Positive: Headache All Other Systems Reviewed And Are Negative: Yes Physical Exam Triage Information Reviewed: Yes Vital Signs On Initial Exam: Initial Vitals Temp Pulse Resp BP Pulse Ox 99.0 F 114 19 116/82 98 08/29/17 08:52 08/29/17 08:52 08/29/17 08:52 08/29/17 08:52 08/29/17 08:52 HR improved to 76 Vital Signs Reviewed: Yes Appearance: Positive: Well-Appearing, No Pain Distress, Well-Nourished Skin: Positive: Warm, Skin Color Reflects Adequate Perfusion, Dry. Negative: Cold, Cyanosis @, Pale, Erythema @ Head/Face: Positive: Normal Head/Face Inspection Eyes: Positive: Conjunctiva Clear ENT: Positive: Normal ENT inspection, Hearing grossly normal, Pharyngeal erythema, Nasal congestion, TM bulging, TM dull, TM red - with effusion left TM, m normal right TM, Tonsillar swelling, Sinus tenderness, Uvula midline - airway patent. Negative: Tonsillar exudate Dental: Positive: Percussion Tenderness @ - maxillary Neck: Positive: Supple, Enlarged Nodes @ - left tonsillar Respiratory/Lung Sounds: Positive: Clear to Auscultation, Breath Sounds Present. Negative: Rales, Rhonchi, Wheezes Cardiovascular: Positive: Normal, RRR, Pulses are Symmetrical in both Upper and Lower Extremities, Murmur. Negative: Rub Abdomen Description: Positive: Nontender, Soft Bowel Sounds: Positive: Present Musculoskeletal: Positive: Normal, Strength/ROM Intact Neurological: Positive: Normal, Sensory/Motor Intact, Alert, Oriented to Person Place, Time Diagnostics - Vital Signs Vital Signs Temp Pulse Resp BP Pulse Ox 08/29/17 09:00 105 97 08/29/17 08:58 115 97 08/29/17 08:56 116/82 08/29/17 08:52 99.0 F 114 19 116/82 98 - Laboratory Lab Statement: Any lab studies that have been ordered have been reviewed, and results considered in the medical decision making process. EENT Course/Dx - Course Course Of Treatment: due to HPI and PE findings appears patient is suffering from OM with effusion due to URI over the past week. no sign of TM perforation on exam howeve limited due to pain with examination. Will treat with cefdinir and claritin. Continue ibuprofen/tylenol as needed for pain. Patient is and these are safe to take. Patient educated on symptoms of infant to watch for adverse effects while taking medication. Aware of worsening signs and symptoms of her condition. Follow up with PCP to ensure improvement. No other concerns at this time. - Differential Diagnoses Differential Diagnoses: Otitis Externa, Otitis Media, URI/Bronchitis, Other - serous otits media - Diagnoses Provider Diagnoses: Otitis media, left Discharge - Discharge Plan Condition: Stable Disposition: HOME Prescriptions: Cefdinir [Cefdinir 300 MG CAP] 300 mg PO BID #20 cap Loratadine & Pseudoephedrine [Claritin-D 24 Hour 10-240 mg] 1 tab PO DAILY #10 tab Patient Education Materials: Otitis Media (ED) Referrals: Suzi Hernandez MD [Primary Care Provider] - Additional Instructions: Take prescribed medication as directed. Increase fluids and get plenty of rest. Avoid submerging ear into water. Do not stick anything into the ear. Continue use of ibuprofen for pain and inflammation. Follow up with PCP to ensure improvement in 7 days, sooner if needed. Any new or worsening signs/symptoms please seek medical attention promptly.
[2017-08-29 10:06] VITALS: BP 113/72
== END 2017-08-29 10:06 | disposition home or self-care (01) ==
LOC: ED 08:45
DX: H66.92 Otitis media, unspecified, left ear (principal)
CPT/HCPCS: 99281

== ENCOUNTER 2017-10-09 12:34 | Emergency (ER) | payer MEDICAID ==
[2017-10-09] MEDS ORDERED: NS 0.9% 1000 ML* 1,000 ML IV ONE (13:35)
[2017-10-09 14:21] LABS: INR 0.98 (0.77-1.02)
[2017-10-09 14:22] LABS: EGFR Non-African American 111.1 (>60)
[2017-10-09 14:44] LABS: ABS Basophils 0 10^3/ul (0-0.2); ABS Eosinophils 0.2 10^3/ul (0-0.6); ABS Lymphocytes 2.2 10^3/ul (1.0-4.8); ABS Monocytes 0.5 10^3/ul (0-0.8); ABS Neutrophils 3.2 10^3/ul (1.5-7.7); ABS Nucleated RBC 0 10^3/ul; Eosinophil % 3.4 % (0-6); Hematocrit 32 % (35-47); Lymphocyte % 35.4 % (25-47); Mean Corpuscular HGB Conc 31 g/dl (31-36); Mean Corpuscular Hemoglobin 20 pg (27-31); Mean Corpuscular Volume 65 fL (80-97); Mean Platelet Volume 9 um3 (7.4-10.4); Nucleated Red Blood Cells % 0; Platelet Count 345 10^3/ul (150-450); Red Blood Count 4.94 10^6/ul (4.0-5.4); Red Cell Distribution Width 19 % (10.5-15); White Blood Count 6.1 10^3/ul (3.5-10.8)
--- NOTE | 2017-10-09 15:27 | RAD ---
HISTORY: Vaginal bleeding and pelvic pain, status post section COMPARISONS: October 30, 2016 TECHNIQUE: Multiple transverse and longitudinal ultrasound images were obtained of the pelvis using grayscale, color Doppler, and spectral Doppler imaging using the endovaginal transducer. FINDINGS: UTERUS: The uterus measures 8.5 x 4.2 x 6.7 cm. There is a linear defect of the lower uterine segment consistent with history of section. There is minimal increased echogenicity suggestive of a small amount of gas along the defect. ENDOMETRIUM: The endometrial stripe is smooth. The endometrium measures 0.8 cm in thickness. CUL-DE-SAC: There is no free fluid within the cul-de-sac. RIGHT OVARY: The right ovary measures 4 x 2.6 x 2.4 cm. Normal arterial and venous waveforms are identifiable within the ovary on spectral Doppler imaging. There is a 2.3 x 1.5 x 2.4 cm simple right ovarian cyst. LEFT OVARY: The left ovary measures 3.2 x 1.4 x 1.8 cm. Normal arterial and venous waveforms are identifiable within the ovary on spectral Doppler imaging. BLADDER: The bladder is not well visualized. OTHER: None IMPRESSION: 1. THERE IS LINEAR DEFECT OF THE LOWER UTERINE SEGMENT CONSISTENT WITH HISTORY OF RECENT SECTION. THERE IS GAS NOTED ALONG THE DEFECT WHICH MAY INDICATE A DEHISCENCE. 2. 2.4 CM RIGHT OVARIAN CYST.
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
[2017-10-09 18:51] VITALS: BP 132/72
--- NOTE | 2017-10-15 22:35 | ED ---
Nathalie Curran Edward, scribed for Maged Vo MD on 10/09/17 at 1319 . - HPI Summary HPI Summary: 22 y/o female presents to the ED c/o vaginal bleeding for 2.5 weeks. Pt is still bleeding. Pt also c/o clots and a constant, cramping pain. The pain is rated 7/10 in severity with no radiation. Associated sx: N/V. Denies diarrhea. Pt had a 2.5 months ago. Pt has had 2 periods in addition to this one since the . - History of Current Complaint Chief Complaint: EDOBProblems Stated Complaint: ABD PAIN/ C SECTION 2 MONTHS AGO Time Seen by Provider: 10/09/17 13:11 Hx Obtained From: Patient Chief Complaint: Vaginal Bleeding Onset/Duration: Started Weeks Ago Timing: Constant Pain Intensity: 7 Associated Signs and Symptoms: Positive: Nausea, Vomiting, Other: - cramping - Assessment Hx Now: Yes - 13 weeks Hx : 2 SAB: 0 IEA: 1 Hx Hysterectomy: No - Additional Pertinent History Primary Care Physician: [id number] Maternal Blood Type and Rh: A Positive - Allergies/Home Medications Allergies/Adverse Reactions: Allergies Allergy/AdvReac Type Severity Reaction Status Date / Time MS Amoxicillin [Amoxicillin] Allergy Unknown Verified 10/09/17 13:04 Reaction Details MS Lorazepam [From Ativan] Allergy Unknown Verified 10/09/17 13:04 Reaction Details MS Penicillins [PCN] Allergy Unknown Verified 10/09/17 13:04 Reaction Details MS Lactose Intolerance (GI) AdvReac Intermediate Abdominal Verified 10/09/17 13: 04 [Lactose Intolerance (GI)] Pain MS Hydroxyzine [From Atarax] AdvReac See Comment Verified 10/09/17 13:04 MS Ziprasidone [From Geodon] AdvReac See Comment Verified 10/09/17 13:04 wheat AdvReac Intermediate Vomiting Uncoded 10/09/17 13:04 fruit AdvReac Unknown Uncoded 10/09/17 13:04 Reaction Details PMH/Surg Hx/FS Hx/Imm Hx Previously Healthy: No Endocrine/Hematology History: Denies: Hx Anticoagulant Therapy, Hx Diabetes, Hx Thyroid Disease Cardiovascular History: Reports: Other Cardiovascular Problems/Disorders - MURMUR Denies: Hx Hypertension Respiratory History: Reports: Hx Asthma Denies: Hx Chronic Obstructive Pulmonary Disease (COPD), Hx Lung Cancer, Hx Pneumonia, Hx Pulmonary Embolism, Other Respiratory Problems/Disorders GI History: Reports: Other GI Disorders - wheat allergy and lactose intolerance Denies: Hx Gall Bladder Disease, Hx Gastrointestinal Bleed, Hx Ulcer, Hx Urosepsis History: Reports: Other Problems/Disorders - hx multiple UTIs Denies: Hx Kidney Stones, Hx Renal Disease Neurological History: Reports: Hx Seizures Denies: Hx Dementia, Hx Migraine, Hx Transient Ischemic Attacks (TIA) Psychiatric History: Reports: Hx Anxiety, Hx Depression, Hx Inpatient Treatment - [facility], Hx [facility] - [facility], [facility], Other Psychiatric Issues/ Disorders - borderline personality, bipolar, PTSD Denies: Hx Attention Deficit Hyperactivity Disorder, Hx Eating Disorder, Hx Panic Disorder, Hx Post Traumatic Stress Disorder, Hx Schizophrenia, Hx Bipolar Disorder, Hx Suicide Attempt, Hx of Violent Episodes Against Others, Hx Substance Abuse - Surgical History Surgery Procedure, Year, and Place: none - Immunization History Date of Tetanus Vaccine: Unk Date of Influenza Vaccine: None Infectious Disease History: No Infectious Disease History: Denies: Hx Hepatitis, Hx Human Immunodeficiency Virus (HIV), Hx of Known/ Suspected MRSA, History Other Infectious Disease, Traveled Outside the [place] in Last 30 Days - Family History Known Family History: Positive: None, Unknown - Adopted, Other - Biological mother - EtOH and drug abuse - Social History Alcohol Use: None Alcohol Amount: pt denies during Hx Substance Use: No Substance Use Type: Reports: None, Marijuana Substance Use Comment - Amount & Last Used: used in past, also ecstacy Hx Tobacco Use: Yes Smoking Status (MU): Former Smoker Type: Cigarettes Have You Smoked in the Last Year: No Review of Systems Constitutional: Negative Eyes: Negative ENT: Negative Cardiovascular: Negative Respiratory: Negative Positive: Vomiting, Nausea Positive: pain - cramping, other - vaginal bleeding Musculoskeletal: Negative Skin: Negative Neurological: Negative Psychological: Normal All Other Systems Reviewed And Are Negative: Yes Physical Exam - Summary Physical Exam Summary: VITAL SIGNS: Reviewed. GENERAL: Patient is a well-developed and nourished female who is lying comfortable in the stretcher. Patient is not in any acute respiratory distress. HEAD AND FACE: No signs of trauma. No ecchymosis, hematomas or skull depressions. No sinus tenderness. EYES: PERRLA, EOMI x 2, No injected conjunctiva, no nystagmus. EARS: Hearing grossly intact. Ear canals and tympanic membranes are within normal limits. MOUTH: Oropharynx within normal limits. NECK: Supple, trachea is midline, no adenopathy, no JVD, no carotid bruit, no c- spine tenderness, neck with full ROM. CHEST: Symmetric, no tenderness at palpation LUNGS: Clear to auscultation bilaterally. No wheezing or crackles. CVS: Regular rate and rhythm, S1 and S2 present, no murmurs or gallops appreciated. ABDOMEN: Soft, tender to palpation in the lower ABD. No signs of distention. No rebound no guarding, and no masses palpated. Bowel sounds are normal. EXTREMITIES: FROM in all major joints, no edema, no cyanosis or clubbing. NEURO: Alert and oriented x 3. No acute neurological deficits. Speech is normal and follows commands. SKIN: Dry and warm - Physical Exam Triage Information Reviewed: Yes Vital Signs Reviewed: Yes Diagnostics - Vital Signs Vital Signs Temp Pulse Resp BP Pulse Ox 10/09/17 12:45 98.9 F 109 17 125/81 95 - Laboratory Lab Results: Lab Results 10/09/17 10/09/17 10/09/17 Range/Units 13:50 13:50 13:50 WBC 6.1 (3.5-10.8) 10^3/ul RBC 4.94 (4.0-5.4) 10^6/ul Hgb 10.0 L (12.0-16.0) g/dl Hct 32 L (35-47) % MCV 65 L (80-97) fL MCH 20 L (27-31) pg MCHC 31 (31-36) g/dl RDW 19 H (10.5-15) % Plt Count 345 (150-450) 10^3/ul MPV 9 (7.4-10.4) um3 Neut % (Auto) 52.7 (38-83) % Lymph % (Auto) 35.4 (25-47) % Lynn % (Auto) 7.7 (1-9) % Eos % (Auto) 3.4 (0-6) % Baso % (Auto) 0.8 (0-2) % Absolute Neuts (auto) 3.2 (1.5-7.7) 10^3/ul Absolute Lymphs (auto) 2.2 (1.0-4.8) 10^3/ul Absolute Monos (auto) 0.5 (0-0.8) 10^3/ul Absolute Eos (auto) 0.2 (0-0.6) 10^3/ul Absolute Basos (auto) 0 (0-0.2) 10^3/ul Absolute Nucleated RBC 0 10^3/ul Nucleated RBC % 0 INR (Anticoag Therapy) 0.98 (0.77-1.02) APTT 19.1 L (26.0-36.3) seconds Sodium 137 (133-145) mmol/L Potassium 3.9 (3.5-5.0) mmol/L Chloride 106 (101-111) mmol/L Carbon Dioxide 26 (22-32) mmol/L Anion Gap 5 (2-11) mmol/L BUN 8 (6-24) mg/dL Creatinine 0.67 (0.51-0.95) mg/dL Est GFR ( Amer) 142.9 (>60) Est GFR (Non-Af Amer) 111.1 (>60) BUN/Creatinine Ratio 11.9 (8-20) Glucose 90 (70-100) mg/dL Calcium 9.0 (8.6-10.3) mg/dL Total Bilirubin 0.60 (0.2-1.0) mg/dL AST 13 (13-39) U/L ALT 16 (7-52) U/L Alkaline Phosphatase 56 (34-104) U/L Total Creatine Kinase 38 (10-223) U/L C-Reactive Protein 8.33 H (< 5.00) mg/L Total Protein 6.9 (6.4-8.9) g/dL Albumin 4.1 (3.2-5.2) g/dL Globulin 2.8 (2-4) g/dL Albumin/Globulin Ratio 1.5 (1-3) Beta HCG, Quant < 0.60 mIU/mL Result Diagrams: 10/09/17 13:50 10/09/17 13:50 Lab Statement: Any lab studies that have been ordered have been reviewed, and results considered in the medical decision making process. - Ultrasound No standard instances Ultrasound Interpretation: Positive (See Comments) - TRANSVAGINAL US - 1. THERE IS LINEAR DEFECT OF THE LOWER UTERINE SEGMENT CONSISTENT WITH HISTORY OF RECENT SECTION. THERE IS GAS NOTED ALONG THE DEFECT WHICH MAY INDICATE A DEHISCENCE. 2. 2.4 CM RIGHT OVARIAN CYST. Ultrasound Interpretation Completed By: Radiologist - ED PHYSICIAN REVIEWS AND AGREES Course/Dx - Course Assessment/Plan: 22 y/o female presents to the ED c/o vaginal bleeding for 2.5 weeks. Pt is still bleeding. Pt also c/o clots and a constant, cramping pain. The pain is rated 7/10 in severity with no radiation. Associated sx: N/V. Denies diarrhea. Pt had a 2.5 months ago. Pt has had 2 periods in addition to this one since the . TRANSVAGINAL US SHOWS TRANSVAGINAL US - 1. THERE IS LINEAR DEFECT OF THE LOWER UTERINE SEGMENT CONSISTENT WITH HISTORY OF RECENT SECTION. THERE IS GAS NOTED ALONG THE DEFECT WHICH MAY INDICATE A DEHISCENCE. 2. 2.4 CM RIGHT OVARIAN CYST. Test results are without significant abnormalities except slight anemia. test negative. Pt declined pelvic exam. I discussed with Dr. Martines who came and examined the pt. After her assessment she requested the pt be d/c home with f/u at her office. She was instructed to return if her sx worsens or develops fevers/chills. The pt understands and agrees. - Differential Diagnosis/HQI/PQRI: Ectopic , Endometriosis, Ovarian Cyst , UTI - Diagnoses Provider Diagnoses: Pelvic pain - Provider Notifications Discussed Care Of Patient With: Jerica Martines Time Discussed With Above Provider: 16:05 Instructed by Provider To: Other - will review US and call back Discharge - Discharge Plan Condition: Stable Disposition: HOME Patient Education Materials: Pelvic Pain in Women (ED) Referrals: Ciarra Jo [Physical Therapist] - (Call for appointment - [phone]) Jerica Martines MD [Medical Doctor] - 2 Days (Please f/u at [facility] on Wednesday (2 days)) The documentation as recorded by the Nathalie dudley Edward accurately reflects the service I personally performed and the decisions made by me, Maged Vo MD.
== END 2017-10-09 18:51 | disposition home or self-care (01) ==
LOC: ED 12:34
DX: R10.2 Pelvic and perineal pain (principal); N83.201 Unspecified ovarian cyst, right side; Z87.891 Personal history of nicotine dependence; Z88.8 Allergy status to other drugs, medicaments and biological substances; Z88.3 Allergy status to other anti-infective agents; Z88.0 Allergy status to penicillin
CPT/HCPCS: 36415; 76830; 80053; 82550; 84702; 85025; 85610; 85730; 86140; 96360; 96361; 99283

== ENCOUNTER → 2017-11-25 18:52 | Emergency (ER) | payer MEDICAID ==
[2017-11-25 19:09] VITALS: BP 130/74
--- NOTE | 2017-11-25 19:44 | RAD ---
INDICATION: Left ankle injury. TECHNIQUE: 3 views of the left ankle were obtained. FINDINGS: The bones are in normal alignment. No fracture is seen. Joint spaces appear maintained. IMPRESSION: NO EVIDENCE FOR FRACTURE.
--- NOTE | 2017-11-25 21:13 | ED ---
Lower Extremity - HPI Summary HPI Summary: 22-year-old female presents with left foot pain for the past day. She states she sprained her left ankle a month ago and then improved after week. She states yesterday she started to exercise for the first time and felt pain in her foot after she walked for an hour. She states there is some mild amount of swelling there. Pain is worse in the morning. She denies any fever or spreading redness. She states she may have had this pain. She was little she had plantar fasciitis she believes it was. She states that her shoes are not old. She denies any numbness or tingling. She is able to weight on her foot, but it hurts. She has been taking ibuprofen for pain. - History of Current Complaint Chief Complaint: EDExtremityLower Stated Complaint: LT ANKLE INJURY Time Seen by Provider: 11/25/17 20:13 Hx Last Menstrual Period: 10/05/16 Pain Intensity: 7 - Allergies/Home Medications Allergies/Adverse Reactions: Allergies Allergy/AdvReac Type Severity Reaction Status Date / Time amoxicillin Allergy Unknown Verified 11/25/17 19:12 Reaction Details hydroxyzine [From Atarax] Allergy See Comment Verified 11/25/17 19:12 lactose Allergy Abdominal Verified 11/25/17 19:12 Pain lorazepam [From Ativan] Allergy Unknown Verified 11/25/17 19:12 Reaction Details Penicillins Allergy Unknown Verified 11/25/17 19:12 Reaction Details ziprasidone [From Geodon] Allergy See Comment Verified 11/25/17 19:12 wheat AdvReac Intermediate Vomiting Uncoded 11/25/17 19:12 fruit AdvReac Unknown Uncoded 11/25/17 19:12 Reaction Details PMH/Surg Hx/FS Hx/Imm Hx Endocrine/Hematology History: Denies: Hx Anticoagulant Therapy, Hx Diabetes, Hx Thyroid Disease Cardiovascular History: Reports: Other Cardiovascular Problems/Disorders - MURMUR Denies: Hx Hypertension Respiratory History: Reports: Hx Asthma Denies: Hx Chronic Obstructive Pulmonary Disease (COPD), Hx Lung Cancer, Hx Pneumonia, Hx Pulmonary Embolism, Other Respiratory Problems/Disorders GI History: Reports: Other GI Disorders - wheat allergy and lactose intolerance Denies: Hx Gall Bladder Disease, Hx Gastrointestinal Bleed, Hx Ulcer, Hx Urosepsis History: Reports: Other Problems/Disorders - hx multiple UTIs Denies: Hx Kidney Stones, Hx Renal Disease Neurological History: Reports: Hx Seizures Denies: Hx Dementia, Hx Migraine, Hx Transient Ischemic Attacks (TIA) Psychiatric History: Reports: Hx Anxiety, Hx Depression, Hx Inpatient Treatment - [facility], Hx [facility] Health [facility]x - [facility], [facility], Other Psychiatric Issues/ Disorders - borderline personality, bipolar, PTSD Denies: Hx Attention Deficit Hyperactivity Disorder, Hx Eating Disorder, Hx Panic Disorder, Hx Post Traumatic Stress Disorder, Hx Schizophrenia, Hx Bipolar Disorder, Hx Suicide Attempt, Hx of Violent Episodes Against Others, Hx Substance Abuse - Surgical History Surgery Procedure, Year, and Place: none - Immunization History Date of Tetanus Vaccine: Unk Date of Influenza Vaccine: None Infectious Disease History: No Infectious Disease History: Denies: Hx Hepatitis, Hx Human Immunodeficiency Virus (HIV), Hx of Known/ Suspected MRSA, History Other Infectious Disease, Traveled Outside the [place] in Last 30 Days - Family History Known Family History: Positive: None, Unknown - Adopted, Other - Biological mother - EtOH and drug abuse - Social History Alcohol Use: None Alcohol Amount: pt denies during Hx Substance Use: No Substance Use Type: Reports: None Substance Use Comment - Amount & Last Used: used in past, also ecstacy Hx Tobacco Use: Yes Smoking Status (MU): Former Smoker Type: Cigarettes Have You Smoked in the Last Year: No Review of Systems Negative: Fever Negative: Chest Pain Negative: Shortness Of Breath Positive: Myalgia - left foot pain All Other Systems Reviewed And Are Negative: Yes Physical Exam Triage Information Reviewed: Yes Vital Signs On Initial Exam: Initial Vitals Temp Pulse Resp BP Pulse Ox 98.8 F 92 16 130/74 98 11/25/17 19:05 11/25/17 19:05 11/25/17 19:05 11/25/17 19:05 11/25/17 19:05 Vital Signs Reviewed: Yes Appearance: Positive: Well-Appearing Skin: Positive: Warm, Dry Head/Face: Positive: Normal Head/Face Inspection Eyes: Positive: Normal, Conjunctiva Clear Respiratory/Lung Sounds: Positive: Clear to Auscultation, Breath Sounds Present Cardiovascular: Positive: Normal, RRR Musculoskeletal: Positive: Strength/ROM Intact - Left foot and ankle, Other - Tenderness over left plantar fascia, pain greatest with dorsiflexion, good pulses, sensation grossly intact, capillary refill< 2 seconds Neurological: Positive: Normal Psychiatric: Positive: Normal Diagnostics - Vital Signs Vital Signs Temp Pulse Resp BP Pulse Ox 11/25/17 19:05 98.8 F 92 16 130/74 98 - Laboratory Lab Statement: Any lab studies that have been ordered have been reviewed, and results considered in the medical decision making process. - Radiology foot Xray Interpretation: No Acute Changes Radiology Interpretation Completed By: Radiologist Lower Extremity Course/Dx - Course Course Of Treatment: 22-year-old female presents with left foot pain for the past day. She states she sprained her left ankle a month ago and then improved after week. She states yesterday she started to exercise for the first time and felt pain in her foot after she walked for an hour. She states there is some mild amount of swelling there. Pain is worse in the morning. She denies any fever or spreading redness. She states she may have had this pain. She was little and plantar fasciitis. She states that her shoes are not cold. She denies any numbness or tingling. She is able to weight on her foot, but it hurts. She has been taking ibuprofen for pain. On exam tenderness over plantar fascia. Pain greatest with dorsiflexion of the foot. Neurovascular intact. X-rays normal. Explained likely plantar fasciitis and to stretching her foot and follow rice. We'll have follow-up with primary. Patient understands, agrees with plan. - Diagnoses Differential Diagnosis/HQI/PQRI: Positive: Fracture (Closed), Sprain, Strain Provider Diagnoses: Left foot pain Discharge - Discharge Plan Condition: Good Disposition: HOME Patient Education Materials: Plantar Fasciitis (ED), Plantar Fasciitis Exercises (ED) Referrals: Suzi Hernandez MD [Primary Care Provider] - Additional Instructions: symptoms likely due to plantar fasciitis Take ibuprofen very 6 hours rest, ice Follow up with primary within 7 days REturn to ED if develop any new or worsening symptoms
== END | disposition home or self-care (01) ==
LOC: ED 18:52
DX: M79.672 Pain in left foot (principal)
CPT/HCPCS: 99282

== ENCOUNTER 2018-02-17 14:48 | Emergency (ER) | payer OTHER ==
[2018-02-17 15:57] LABS: ABS Basophils 0.1 10^3/ul (0-0.2); ABS Eosinophils 0.3 10^3/ul (0-0.6); ABS Lymphocytes 2.3 10^3/ul (1.0-4.8); ABS Monocytes 0.5 10^3/ul (0-0.8); ABS Nucleated RBC 0 10^3/ul; Eosinophil % 3.6 % (0-6); Hematocrit 34 % (35-47); Hemoglobin 10.8 g/dl (12.0-16.0); Lymphocyte % 31.9 % (25-47); Mean Corpuscular HGB Conc 31 g/dl (31-36); Mean Corpuscular Hemoglobin 22 pg (27-31); Mean Corpuscular Volume 69 fL (80-97); Mean Platelet Volume 9.3 um3 (7.4-10.4); Nucleated Red Blood Cells % 0.1; Platelet Count 344 10^3/ul (150-450); Red Blood Count 4.98 10^6/ul (4.0-5.4); Red Cell Distribution Width 19 % (10.5-15); White Blood Count 7.1 10^3/ul (3.5-10.8)
[2018-02-17] MEDS ORDERED: NS 0.9% 1000 ML* 1,000 ML IV ONE (16:07)
[2018-02-17 16:18] LABS: EGFR Non-African American 123.8 (>60)
[2018-02-17 17:08] LABS: Urine Appearance Clear; Urine Blood Negative (Negative); Urine Color Yellow; Urine Ketones Negative (Negative); Urine Protein Negative (Negative); Urine Specific Gravity 1.027 (1.010-1.030); Urine Urobilinogen Negative (Negative)
--- NOTE | 2018-02-17 17:32 | ED ---
Abdominal Pain/Female - HPI Summary HPI Summary: (3 MISCARRIAGES) Patient here with lower pelvic pain over the past 3 days. She reports this started in her central pubic area and has expanded out to her bilateral pubic area. She reports that she has not had improvement with 2 naproxen last night. She denies fever, chills, nausea, vomiting, urinary frequency urgency flank pain, vaginal discharge. She is been avoiding intercourse as she's not felt like having it recently. She is 6 months status post without complications. She hasn't Nexplanon device implanted in her left bicep region. She is a few days late for her. It was concerned she may be . Home urine test was negative. Will check here today. Denies difficulty with bowel movements although she does admit to a history of constipation during her pregnancies. Aside from C- section, no history of abdominal surgeries. She IS also reports she may have had a history of ovarian cysts however never diagnosed, these were just based on her clinical symptoms. - History of Current Complaint Chief Complaint: Tameka Stated Complaint: ABD PAIN Time Seen by Provider: 02/17/18 15:04 Hx Obtained From: Patient Hx Last Menstrual Period: 10/05/16 Pain Intensity: 5 Allergies/Adverse Reactions: Allergies Allergy/AdvReac Type Severity Reaction Status Date / Time amoxicillin Allergy Unknown Verified 11/25/17 19:12 Reaction Details hydroxyzine [From Atarax] Allergy See Comment Verified 11/25/17 19:12 lactose Allergy Abdominal Verified 11/25/17 19:12 Pain lorazepam [From Ativan] Allergy Unknown Verified 11/25/17 19:12 Reaction Details Penicillins Allergy Unknown Verified 11/25/17 19:12 Reaction Details ziprasidone [From Geodon] Allergy See Comment Verified 11/25/17 19:12 wheat AdvReac Intermediate Vomiting Uncoded 11/25/17 19:12 fruit AdvReac Unknown Uncoded 11/25/17 19:12 Reaction Details Home Medications: Home Medications Acetaminophen TAB* [Tylenol TAB*] 650 mg PO DAILY PRN 02/17/18 [History Confirmed 02/17/18] Albuterol HFA INHALER* [Ventolin HFA Inhaler*] 2 puff INH Q4H PRN 02/17/18 [ History Confirmed 02/17/18] Venlafaxine EXT RELEASE CAP* [Effexor Xr CAP*] 37.5 mg PO BID 02/17/18 [History Confirmed 02/17/18] PMH/Surg Hx/FS Hx/Imm Hx Previously Healthy: Yes Endocrine/Hematology History: Denies: Hx Anticoagulant Therapy, Hx Diabetes, Hx Thyroid Disease Cardiovascular History: Reports: Other Cardiovascular Problems/Disorders - MURMUR Denies: Hx Hypertension Respiratory History: Reports: Hx Asthma Denies: Hx Chronic Obstructive Pulmonary Disease (COPD), Hx Lung Cancer, Hx Pneumonia, Hx Pulmonary Embolism, Other Respiratory Problems/Disorders GI History: Reports: Other GI Disorders - wheat allergy and lactose intolerance Denies: Hx Gall Bladder Disease, Hx Gastrointestinal Bleed, Hx Ulcer, Hx Urosepsis History: Reports: Other Problems/Disorders - hx multiple UTIs Denies: Hx Kidney Stones, Hx Renal Disease Neurological History: Reports: Hx Seizures Denies: Hx Dementia, Hx Migraine, Hx Transient Ischemic Attacks (TIA) Psychiatric History: Reports: Hx Anxiety, Hx Depression, Hx Inpatient Treatment - [facility], Hx [facility], Other Psychiatric Issues/ Disorders - borderline personality, bipolar, PTSD Denies: Hx Attention Deficit Hyperactivity Disorder, Hx Eating Disorder, Hx Panic Disorder, Hx Post Traumatic Stress Disorder, Hx Schizophrenia, Hx Bipolar Disorder, Hx Suicide Attempt, Hx of Violent Episodes Against Others, Hx Substance Abuse - Surgical History Surgery Procedure, Year, and Place: none - Immunization History Date of Tetanus Vaccine: Unk Date of Influenza Vaccine: None Infectious Disease History: No Infectious Disease History: Denies: Hx Hepatitis, Hx Human Immunodeficiency Virus (HIV), Hx of Known/ Suspected MRSA, History Other Infectious Disease, Traveled Outside the [place] in Last 30 Days - Family History Known Family History: Positive: Other - Biological mother - EtOH and drug abuse - Social History Occupation: Unemployed - stay at home mom Lives: With Family - male partner and kids Alcohol Use: None Alcohol Amount: pt denies during Hx Substance Use: No Substance Use Type: Reports: None Substance Use Comment - Amount & Last Used: used in past, also ecstacy Hx Tobacco Use: Yes Smoking Status (MU): Former Smoker Type: Cigarettes Have You Smoked in the Last Year: No Review of Systems Constitutional: Negative Eyes: Negative ENT: Negative Cardiovascular: Negative Respiratory: Negative Positive: Abdominal Pain. Negative: Vomiting, Diarrhea, Nausea Positive: see HPI Musculoskeletal: Negative Skin: Negative Neurological: Negative Positive: Anxious All Other Systems Reviewed And Are Negative: Yes Physical Exam Triage Information Reviewed: Yes Vital Signs On Initial Exam: Initial Vitals Temp Pulse Resp BP Pulse Ox 98.2 F 104 20 124/80 98 02/17/18 14:50 02/17/18 14:50 02/17/18 14:50 02/17/18 14:50 02/17/18 14:50 Vital Signs Reviewed: Yes Appearance: Positive: Well-Appearing, Well-Nourished, Pain Distress - MILD TO MODERATE Skin: Positive: Warm, Skin Color Reflects Adequate Perfusion, Dry Head/Face: Positive: Normal Head/Face Inspection Eyes: Positive: Normal, EOMI, Conjunctiva Clear - ANICTERIC SCLERA ENT: Positive: Normal ENT inspection, Hearing grossly normal, Pharynx normal - MUCOSA MOIST Neck: Positive: Supple, Nontender Respiratory/Lung Sounds: Positive: Clear to Auscultation, Breath Sounds Present Cardiovascular: Positive: Normal, RRR, Pulses are Symmetrical in both Upper and Lower Extremities Abdomen Description: Positive: No Organomegaly, Soft, Other: - diffuse lower pelvic/ab TTP however worse in LLQ - no rebounding; tender over scar - appears to be healed well. Negative: CVA Tenderness (R), CVA Tenderness (L), Distended, Guarding, Hernia @ Bowel Sounds: Positive: Present Musculoskeletal: Positive: Normal, Strength/ROM Intact Neurological: Positive: Normal, Sensory/Motor Intact, Alert, Oriented to Person Place, Time, CN Intact II-III Psychiatric: Positive: Normal Diagnostics - Vital Signs Vital Signs Temp Pulse Resp BP Pulse Ox 02/17/18 14:50 98.2 F 104 20 124/80 98 - Laboratory Lab Results: Lab Results 02/17/18 02/17/18 02/17/18 Range/Units 15:43 15:43 15:43 WBC 7.1 (3.5-10.8) 10^3/ul RBC 4.98 (4.0-5.4) 10^6/ul Hgb 10.8 L (12.0-16.0) g/dl Hct 34 L (35-47) % MCV 69 L (80-97) fL MCH 22 L (27-31) pg MCHC 31 (31-36) g/dl RDW 19 H (10.5-15) % Plt Count 344 (150-450) 10^3/ul MPV 9.3 (7.4-10.4) um3 Neut % (Auto) 56.4 (38-83) % Lymph % (Auto) 31.9 (25-47) % [place] % (Auto) 7.3 H (0-7) % Eos % (Auto) 3.6 (0-6) % Baso % (Auto) 0.8 (0-2) % Absolute Neuts (auto) 4.0 (1.5-7.7) 10^3/ul Absolute Lymphs (auto) 2.3 (1.0-4.8) 10^3/ul Absolute Monos (auto) 0.5 (0-0.8) 10^3/ul Absolute Eos (auto) 0.3 (0-0.6) 10^3/ul Absolute Basos (auto) 0.1 (0-0.2) 10^3/ul Absolute Nucleated RBC 0 10^3/ul Nucleated RBC % 0.1 Sodium 138 L (139-145) mmol/L Potassium 3.9 (3.5-5.0) mmol/L Chloride 106 (101-111) mmol/L Carbon Dioxide 24 (22-32) mmol/L Anion Gap 8 (2-11) mmol/L BUN 13 (6-24) mg/dL Creatinine 0.61 (0.51-0.95) mg/dL Est GFR ( Amer) 159.2 (>60) Est GFR (Non-Af Amer) 123.8 (>60) BUN/Creatinine Ratio 21.3 H (8-20) Glucose 89 (70-100) mg/dL Lactic Acid 0.4 L (0.5-2.0) mmol/L Calcium 9.1 (8.6-10.3) mg/dL Magnesium 1.7 L (1.9-2.7) mg/dL Total Bilirubin 0.50 (0.2-1.0) mg/dL AST 12 L (13-39) U/L ALT 9 (7-52) U/L Alkaline Phosphatase 64 (34-104) U/L C-Reactive Protein 14.43 H (< 5.00) mg/L Total Protein 7.1 (6.4-8.9) g/dL Albumin 4.2 (3.2-5.2) g/dL Globulin 2.9 (2-4) g/dL Albumin/Globulin Ratio 1.4 (1-3) Lipase 26 (11.0-82.0) U/L Beta HCG, Quant < 0.60 mIU/mL Urine Color Urine Appearance Urine pH (5-9) Ur Specific [place] (1.010-1.030) Urine Protein (Negative) Urine Ketones (Negative) Urine Blood (Negative) Urine Nitrate (Negative) Urine Bilirubin (Negative) Urine Urobilinogen (Negative) Ur Leukocyte Esterase (Negative) Urine Glucose (Negative) 02/17/18 Range/Units 17:00 WBC (3.5-10.8) 10^3/ul RBC (4.0-5.4) 10^6/ul Hgb (12.0-16.0) g/dl Hct (35-47) % MCV (80-97) fL MCH (27-31) pg MCHC (31-36) g/dl RDW (10.5-15) % Plt Count (150-450) 10^3/ul MPV (7.4-10.4) um3 Neut % (Auto) (38-83) % Lymph % (Auto) (25-47) % [place] % (Auto) (0-7) % Eos % (Auto) (0-6) % Baso % (Auto) (0-2) % Absolute Neuts (auto) (1.5-7.7) 10^3/ul Absolute Lymphs (auto) (1.0-4.8) 10^3/ul Absolute Monos (auto) (0-0.8) 10^3/ul Absolute Eos (auto) (0-0.6) 10^3/ul Absolute Basos (auto) (0-0.2) 10^3/ul Absolute Nucleated RBC 10^3/ul Nucleated RBC % Sodium (139-145) mmol/L Potassium (3.5-5.0) mmol/L Chloride (101-111) mmol/L Carbon Dioxide (22-32) mmol/L Anion Gap (2-11) mmol/L BUN (6-24) mg/dL Creatinine (0.51-0.95) mg/dL Est GFR ( Amer) (>60) Est GFR (Non-Af Amer) (>60) BUN/Creatinine Ratio (8-20) Glucose (70-100) mg/dL Lactic Acid (0.5-2.0) mmol/L Calcium (8.6-10.3) mg/dL Magnesium (1.9-2.7) mg/dL Total Bilirubin (0.2-1.0) mg/dL AST (13-39) U/L ALT (7-52) U/L Alkaline Phosphatase (34-104) U/L C-Reactive Protein (< 5.00) mg/L Total Protein (6.4-8.9) g/dL Albumin (3.2-5.2) g/dL Globulin (2-4) g/dL Albumin/Globulin Ratio (1-3) Lipase (11.0-82.0) U/L Beta HCG, Quant mIU/mL Urine Color Yellow Urine Appearance Clear Urine pH 5.0 (5-9) Ur Specific [place] 1.027 (1.010-1.030) Urine Protein Negative (Negative) Urine Ketones Negative (Negative) Urine Blood Negative (Negative) Urine Nitrate Negative (Negative) Urine Bilirubin Negative (Negative) Urine Urobilinogen Negative (Negative) Ur Leukocyte Esterase Negative (Negative) Urine Glucose Negative (Negative) Result Diagrams: 02/17/18 15:43 02/17/18 15:43 Lab Statement: Any lab studies that have been ordered have been reviewed, and results considered in the medical decision making process. Abdominal Pain Fem Course/Dx - Course Course Of Treatment: Patient presented with pelvic pain over the past 3 days. Her labs are unremarkable for infection, , inflammation. A transvaginal ultrasound was ordered to assess for ovarian cyst, torsion, endometrial issues. She'll be signed out to JOE Ribera in stable condition pending ultrasound report. If this is negative, consider CT with contrast given her left lower quadrant pain and history of constipation. - Diagnoses Provider Diagnoses: Abdominal pain Discharge - Sign-Out/Discharge Documenting (check all that apply): Sign-Out Patient Signing out patient TO: Dorothy Evans - Discharge Plan Condition: Stable - Billing Disposition and Condition Condition: STABLE
--- NOTE | 2018-02-17 17:52 | RAD ---
Indication: Pelvic pain. Real-time sonography of the pelvis was performed utilizing endovaginal technique. The uterus measures 6.6 x 3.7 x 5.2 cm and is retroverted. Endometrial echo measures 6.0 mm. Right ovary measures 4.1 x 2.0 x 2.6 cm. Left ovary measures 4.1 x 1.5 x 3.0 cm. Follicles are noted in both ovaries. Doppler interrogation demonstrates flow in both ovaries. IMPRESSION: Retroflexed uterus. No adnexal masses are noted.
[2018-02-17] MEDS ORDERED: Ketorolac INJ* 30 MG/ML 1 ML VIAL ONE (18:51)
[2018-02-17] MEDS ORDERED: Ketorolac INJ* 30 MG/ML 1 ML VIAL IV PUSH ONE ×2 (18:58)
--- NOTE | 2018-02-17 19:13 | PN ---
Progress Note - Progress Note Date of Service: 02/17/18 Note: patient was a sign out from Joanne Gamble at shift change pending US report. US negative without significant findings. patient mildly tender on palpation of suprapubic area. improved with toradol. could be mittleschmerz/ beginning of menses after . patient had last bowel movement last night and normal. normal labs and does not appear necessary for further imaging at this time. patient agreed and understands and would like to go home will follow up with pcp/obgyn tomorrow aware of worsening signs and symptoms to watch out for and if occur to return to ER for further eval. talked about clear liquid diet and high fiber. US results: Retroflexed uterus. No adnexal masses are noted. discharge: home Diagnosis: suprapubic abdominal pain
[2018-02-17 20:16] VITALS: BP 130/74
== END 2018-02-17 20:17 | disposition home or self-care (01) ==
LOC: ED 14:48
DX: R10.32 Left lower quadrant pain (principal); N85.4 Malposition of uterus; Z87.19 Personal history of other diseases of the digestive system; Z87.891 Personal history of nicotine dependence; Z88.3 Allergy status to other anti-infective agents; Z88.0 Allergy status to penicillin; Z88.8 Allergy status to other drugs, medicaments and biological substances
CPT/HCPCS: 36415; 76830; 80053; 81003; 83605; 83690; 83735; 84702; 85025; 86140; 96361; 96374; 99283; J1885

== ENCOUNTER 2018-02-24 19:21 | Emergency (ER) | payer OTHER ==
[2018-02-24] MEDS ORDERED: Ketorolac INJ* 15 MG/ML 1 ML VIAL IV ONE (22:30)
[2018-02-24 22:55] LABS: ABS Basophils 0.1 10^3/ul (0-0.2); ABS Eosinophils 0.2 10^3/ul (0-0.6); ABS Lymphocytes 2.3 10^3/ul (1.0-4.8); ABS Monocytes 0.6 10^3/ul (0-0.8); ABS Neutrophils 4.4 10^3/ul (1.5-7.7); ABS Nucleated RBC 0 10^3/ul; Eosinophil % 2.8 % (0-6); Hematocrit 33 % (35-47); Hemoglobin 10.4 g/dl (12.0-16.0); Lymphocyte % 30.3 % (25-47); Mean Corpuscular HGB Conc 32 g/dl (31-36); Mean Corpuscular Hemoglobin 22 pg (27-31); Mean Corpuscular Volume 69 fL (80-97); Mean Platelet Volume 8.8 um3 (7.4-10.4); Nucleated Red Blood Cells % 0; Platelet Count 343 10^3/ul (150-450); Red Blood Count 4.78 10^6/ul (4.00-5.40); Red Cell Distribution Width 19 % (10.5-15); White Blood Count 7.6 10^3/ul (3.5-10.8)
[2018-02-24 23:02] LABS: EGFR Non-African American 126.2 (>60)
[2018-02-25] MEDS ORDERED: Iohexol 300* (CONTRAST) 10 ML SDV IV ONE (00:34)
[2018-02-25 01:59] LABS: Urine Appearance Cloudy; Urine Blood Negative (Negative); Urine Color Yellow; Urine Ketones Negative (Negative); Urine Protein Negative (Negative); Urine Urobilinogen Negative (Negative)
[2018-02-25 02:27] VITALS: BP 112/74
--- NOTE | 2018-02-25 05:27 | ED ---
Piotr Curran Elizabeth, scribed for Tomasz Burnham MD on 02/24/18 at 2259 . Abdominal Pain/Female - HPI Summary HPI Summary: This patient is a 22 year old F presenting to [facility] upon referral from her primary care physician with a chief complaint of constant dull lower abd pain since 10 days ago. The patient was seen at [facility] 7 days ago for the same symptoms. The patient reports intermittent sharp, crampy lower abd pain approximately every 5 minutes. The patient rates the pain 7/10 in severity. Symptoms aggravated by food. Symptoms alleviated by nothing. Patient reports N/ V. Patient denies chills and fever. - History of Current Complaint Chief Complaint: EDAbdPain Stated Complaint: ABD PAIN Time Seen by Provider: 02/24/18 21:34 Hx Obtained From: Patient Hx Last Menstrual Period: 10/05/16 Onset/Duration: Gradual Onset, Lasting Weeks - 1.5 weeks, Still Present Timing: Constant Severity Initially: Mild Severity Currently: Moderate Pain Intensity: 7 Pain Scale Used: 0-10 Numeric Location: Discrete At: RLQ, Discrete At: LLQ, Suprapubic Radiates: No Character: Sharp, Cramping Aggravating Factor(s): Food Alleviating Factor(s): Nothing Associated Signs and Symptoms: Positive: Nausea, Vomiting. Negative: Fever Allergies/Adverse Reactions: Allergies Allergy/AdvReac Type Severity Reaction Status Date / Time amoxicillin Allergy Unknown Verified 11/25/17 19:12 Reaction Details hydroxyzine [From Atarax] Allergy See Comment Verified 11/25/17 19:12 lactose Allergy Abdominal Verified 11/25/17 19:12 Pain lorazepam [From Ativan] Allergy Unknown Verified 11/25/17 19:12 Reaction Details Penicillins Allergy Unknown Verified 11/25/17 19:12 Reaction Details ziprasidone [From Geodon] Allergy See Comment Verified 11/25/17 19:12 wheat AdvReac Intermediate Vomiting Uncoded 11/25/17 19:12 fruit AdvReac Unknown Uncoded 11/25/17 19:12 Reaction Details PMH/Surg Hx/FS Hx/Imm Hx Endocrine/Hematology History: Denies: Hx Anticoagulant Therapy, Hx Diabetes, Hx Thyroid Disease Cardiovascular History: Reports: Other Cardiovascular Problems/Disorders - MURMUR Denies: Hx Hypertension Respiratory History: Reports: Hx Asthma Denies: Hx Chronic Obstructive Pulmonary Disease (COPD), Hx Lung Cancer, Hx Pneumonia, Hx Pulmonary Embolism, Other Respiratory Problems/Disorders GI History: Reports: Other GI Disorders - wheat allergy and lactose intolerance Denies: Hx Gall Bladder Disease, Hx Gastrointestinal Bleed, Hx Ulcer, Hx Urosepsis History: Reports: Other Problems/Disorders - hx multiple UTIs Denies: Hx Kidney Stones, Hx Renal Disease Neurological History: Reports: Hx Seizures Denies: Hx Dementia, Hx Migraine, Hx Transient Ischemic Attacks (TIA) Psychiatric History: Reports: Hx Anxiety, Hx Depression, Hx Inpatient Treatment - [facility], Hx Community Mental Health Tx - [facility], [facility], Other Psychiatric Issues/ Disorders - borderline personality, bipolar, PTSD Denies: Hx Attention Deficit Hyperactivity Disorder, Hx Eating Disorder, Hx Panic Disorder, Hx Post Traumatic Stress Disorder, Hx Schizophrenia, Hx Bipolar Disorder, Hx Suicide Attempt, Hx of Violent Episodes Against Others, Hx Substance Abuse - Surgical History Surgery Procedure, Year, and Place: none - Immunization History Date of Tetanus Vaccine: Unk Date of Influenza Vaccine: None Immunizations Up to Date: Yes Infectious Disease History: No Infectious Disease History: Denies: Hx Hepatitis, Hx Human Immunodeficiency Virus (HIV), Hx of Known/ Suspected MRSA, History Other Infectious Disease, Traveled Outside the [place] in Last 30 Days - Family History Known Family History: Positive: Other - Biological mother - EtOH and drug abuse - Social History Alcohol Use: None Alcohol Amount: pt denies during Hx Substance Use: No Substance Use Type: Reports: None Substance Use Comment - Amount & Last Used: used in past, also ecstacy Hx Tobacco Use: Yes Smoking Status (MU): Former Smoker Type: Cigarettes Have You Smoked in the Last Year: No Review of Systems Negative: Fever, Chills Negative: Epistaxis Negative: Chest Pain Positive: Abdominal Pain - lower abd pain, Vomiting, Nausea All Other Systems Reviewed And Are Negative: Yes Physical Exam - Summary Physical Exam Summary: Appearance: Well-appearing, no distress, Well-nourished Skin: Warm, color reflects adequate perfusion Head: Normal Head/Face inspection Eyes: Conjunctiva clear ENT: Normal inspection Neck: Supple, no nodes, no JVD. Respiratory: Lungs clear, Normal breath sounds, no respiratory distress Cardio: RRR, No murmur, pulses normal, brisk capillary refill Abdomen: soft, no guarding, moderate suprapubic tenderness, mild rebound tenderness RLQ Bowel sounds: present Musculoskeletal: Strength Intact/ ROM intact. No calf tenderness. No edema. Neuro: Alert, muscle tone normal, facial symmetry, speech normal, sensory/motor intact Psychological: Normal Triage Information Reviewed: Yes Vital Signs On Initial Exam: Initial Vitals Temp Pulse Resp BP Pulse Ox 97.3 F 94 18 122/79 98 02/24/18 19:33 02/24/18 19:33 02/24/18 19:33 02/24/18 19:33 02/24/18 19:33 Vital Signs Reviewed: Yes Diagnostics - Vital Signs Vital Signs Temp Pulse Resp BP Pulse Ox 02/24/18 19:33 97.3 F 94 18 122/79 98 - Laboratory Lab Results: Lab Results 02/24/18 02/24/18 02/25/18 Range/Units 22:39 22:39 01:42 WBC 7.6 (3.5-10.8) 10^3/ul RBC 4.78 (4.00-5.40) 10^6/ul Hgb 10.4 L (12.0-16.0) g/dl Hct 33 L (35-47) % MCV 69 L (80-97) fL MCH 22 L (27-31) pg MCHC 32 (31-36) g/dl RDW 19 H (10.5-15) % Plt Count 343 (150-450) 10^3/ul MPV 8.8 (7.4-10.4) um3 Neut % (Auto) 58.4 (38-83) % Lymph % (Auto) 30.3 (25-47) % [place] % (Auto) 7.7 H (0-7) % Eos % (Auto) 2.8 (0-6) % Baso % (Auto) 0.8 (0-2) % Absolute Neuts (auto) 4.4 (1.5-7.7) 10^3/ul Absolute Lymphs (auto) 2.3 (1.0-4.8) 10^3/ul Absolute Monos (auto) 0.6 (0-0.8) 10^3/ul Absolute Eos (auto) 0.2 (0-0.6) 10^3/ul Absolute Basos (auto) 0.1 (0-0.2) 10^3/ul Absolute Nucleated RBC 0 10^3/ul Nucleated RBC % 0 Sodium 138 (135-145) mmol/L Potassium 4.0 (3.5-5.0) mmol/L Chloride 105 (101-111) mmol/L Carbon Dioxide 28 (22-32) mmol/L Anion Gap 5 (2-11) mmol/L BUN 10 (6-24) mg/dL Creatinine 0.60 (0.51-0.95) mg/dL Est GFR ( Amer) 162.3 (>60) Est GFR (Non-Af Amer) 126.2 (>60) BUN/Creatinine Ratio 16.7 (8-20) Glucose 92 (70-100) mg/dL Calcium 9.2 (8.6-10.3) mg/dL Total Bilirubin 0.40 (0.2-1.0) mg/dL AST 10 L (13-39) U/L ALT 7 (7-52) U/L Alkaline Phosphatase 65 (34-104) U/L Total Protein 6.9 (6.4-8.9) g/dL Albumin 4.0 (3.2-5.2) g/dL Globulin 2.9 (2-4) g/dL Albumin/Globulin Ratio 1.4 (1-3) Lipase 23 (11.0-82.0) U/L Beta HCG, Quant < 0.60 mIU/mL Urine Color Yellow Urine Appearance Cloudy Urine pH 6.0 (5-9) Ur Specific [place] 1.020 (1.010-1.030) Urine Protein Negative (Negative) Urine Ketones Negative (Negative) Urine Blood Negative (Negative) Urine Nitrate Negative (Negative) Urine Bilirubin Negative (Negative) Urine Urobilinogen Negative (Negative) Ur Leukocyte Esterase Trace A (Negative) Urine WBC (Auto) Trace(0-5/hpf) (Absent) Urine RBC (Auto) Trace(0-2/hpf) (Absent) Ur Squamous Epith Cells Present A (Absent) Calcium Oxalate Crystal Present A (Absent) Urine Bacteria Absent (Absent) Urine Glucose Negative (Negative) Result Diagrams: 02/24/18 22:39 02/24/18 22:39 Lab Statement: Any lab studies that have been ordered have been reviewed, and results considered in the medical decision making process. - CT CT Abd/Pelvis CT Interpretation: No Acute Changes - impression: negative for acute concerning abnormality. Small right ovarian cyst. Dr. Burnham has reviewed this report. CT Interpretation Completed By: Radiologist Re-Evaluation - Re-Evaluation First Eval Change: Improved - Pt abdominal pain improved with IV analgesia. Pt with unclear etiology at this time. Plan for symptomatic tx with GI/[employer]INTER f/u. Abdominal Pain Fem Course/Dx - Diagnoses Differential Diagnosis: Positive: Appendicitis, Bowel Obstruction, Constipation , Diverticulitis, Irritable Bowel Syndrome, Ovarian Cyst, Pancreatitis, Peptic Ulcer Disease, , Urinary Tract Infection Provider Diagnoses: Abdominal pain Discharge - Sign-Out/Discharge Documenting (check all that apply): Discharge/Admit/Transfer - Discharge Plan Condition: Stable Disposition: HOME Discharge Disposition Comment: Discharge home Prescriptions: Ketorolac TAB * [Toradol TAB *] 10 mg PO Q6H PRN 3 Days #10 tab PRN Reason: Pain Patient Education Materials: Abdominal Pain (ED) Referrals: Suzi Hernandez MD [Primary Care Provider] - Mamadou Welsh MD [Medical Doctor] - 2 Days Additional Instructions: Follow up with Dr. Welsh, speech and hearing director, in 2-3 days. Return to the emergency department with any new or worsening symptoms. - Billing Disposition and Condition Condition: STABLE Disposition: Home The documentation as recorded by the Piotr dudley Elizabeth accurately reflects the service I personally performed and the decisions made by , Tomasz Burnham MD.
--- NOTE | 2018-02-25 07:57 | RAD ---
CLINICAL HISTORY: abdominal pain , COMPARISON: August 31, 2016 TECHNIQUE: Multiple contiguous axial CT scans were obtained of the abdomen and pelvis after the administration of intravenous contrast. Coronal and sagittal multiplanar reformations are submitted for review. Oral contrast was administered. Delayed images were obtained through the abdomen. FINDINGS: LUNG BASES: The lung bases are clear. LIVER: The liver is normal in shape, size, contour, and attenuation. BILE DUCTS: There is no intrahepatic or extrahepatic biliary dilatation. GALLBLADDER: The gallbladder is normal, without pericholecystic inflammatory change. PANCREAS: The pancreas is normal, without mass or ductal dilatation. SPLEEN: Normal in size and appearance. UPPER GI TRACT: Evaluation of the gastrointestinal tract is limited by incomplete gastric distention. The upper GI tract is unremarkable. SMALL BOWEL AND MESENTERY: The small bowel is normal in contour, course, and caliber. There is no obstruction or dilatation. COLON: The colon is normal in contour, course, caliber. There is no pericolonic inflammatory change. There is a tubular, vermiform, hollow viscus that is blind ending, and originates from the cecum, consistent with a normal appendix. There is no periappendiceal inflammatory change. This is best seen on axial images 60 through 74. ADRENALS: Normal bilaterally. KIDNEYS: The kidneys are normal in shape, size, contour, and axis. There is no hydronephrosis or nephrolithiasis. BLADDER: The bladder is smooth in contour. PELVIC ORGANS: The uterus and adnexa are grossly normal for technique. There is a 2.6 cm right ovarian cyst. AORTA: The aorta is normal. IVC: Unremarkable LYMPH NODES: There is no lymphadenopathy by size criteria. ABDOMINAL WALL: There is no evidence for abdominal wall hernia. BONES AND SOFT TISSUES: Unremarkable OTHER: None IMPRESSION: RIGHT OVARIAN CYST. NO ACUTE CT PATHOLOGY OF THE VISUALIZED ABDOMEN OR PELVIS.
== END 2018-02-25 02:24 | disposition home or self-care (01) ==
LOC: ED 19:21
DX: R10.31 Right lower quadrant pain (principal); R10.32 Left lower quadrant pain; N83.201 Unspecified ovarian cyst, right side; Z87.891 Personal history of nicotine dependence; Z88.3 Allergy status to other anti-infective agents; Z88.8 Allergy status to other drugs, medicaments and biological substances; Z88.0 Allergy status to penicillin
CPT/HCPCS: 36415; 74177; 80053; 81003; 81015; 83690; 84702; 85025; 87086; 96374; 99283; J1885; Q9967

== ENCOUNTER 2018-03-16 18:34 | Emergency (ER) | payer OTHER ==
--- NOTE | 2018-03-16 19:11 | ED ---
Lower Extremity - HPI Summary HPI Summary: 22-year-old female presents with left thigh pain since this morning. States that 2 weeks ago she has found a bump under the surface of her left thigh. It was not painful. States the bump has gone bigger. States she's been occasionally having knee pain. No swelling noted to the knee. She denies any chest pain or shortness breath. No rash. No injury. No recent tick exposure. No fevers. She states that today she also been having some numbness of her left foot. No back pain. No saddle anaesthesia or loss of bowel or bladder. No fever. No family history of blood clots. Is nonsmoker. No recent travel or surgeries. - History of Current Complaint Chief Complaint: EDExtremityLower Stated Complaint: BUMP ON LT LEG Time Seen by Provider: 03/16/18 18:43 Hx Last Menstrual Period: 10/05/16 Pain Intensity: 2 - Allergies/Home Medications Allergies/Adverse Reactions: Allergies Allergy/AdvReac Type Severity Reaction Status Date / Time amoxicillin Allergy Unknown Verified 11/25/17 19:12 Reaction Details hydroxyzine [From Atarax] Allergy See Comment Verified 11/25/17 19:12 lactose Allergy Abdominal Verified 11/25/17 19:12 Pain lorazepam [From Ativan] Allergy Unknown Verified 11/25/17 19:12 Reaction Details Penicillins Allergy Unknown Verified 11/25/17 19:12 Reaction Details ziprasidone [From Geodon] Allergy See Comment Verified 11/25/17 19:12 wheat AdvReac Intermediate Vomiting Uncoded 11/25/17 19:12 fruit AdvReac Unknown Uncoded 11/25/17 19:12 Reaction Details Home Medications: Home Medications Etonogestrel [Nexplanon] 68 mg .SEE ORDER ONCE 03/16/18 [History Confirmed 03/16] PMH/Surg Hx/FS Hx/Imm Hx Endocrine/Hematology History: Denies: Hx Anticoagulant Therapy, Hx Diabetes, Hx Thyroid Disease Cardiovascular History: Reports: Other Cardiovascular Problems/Disorders - MURMUR Denies: Hx Hypertension Respiratory History: Reports: Hx Asthma Denies: Hx Chronic Obstructive Pulmonary Disease (COPD), Hx Lung Cancer, Hx Pneumonia, Hx Pulmonary Embolism, Other Respiratory Problems/Disorders GI History: Reports: Other GI Disorders - wheat allergy and lactose intolerance Denies: Hx Gall Bladder Disease, Hx Gastrointestinal Bleed, Hx Ulcer, Hx Urosepsis History: Reports: Other Problems/Disorders - hx multiple UTIs Denies: Hx Kidney Stones, Hx Renal Disease Neurological History: Reports: Hx Seizures Denies: Hx Dementia, Hx Migraine, Hx Transient Ischemic Attacks (TIA) Psychiatric History: Reports: Hx Anxiety, Hx Depression, Hx Inpatient Treatment - [facility], Hx Community Mental Health Tx - [facility], [facility], Other Psychiatric Issues/ Disorders - borderline personality, bipolar, PTSD Denies: Hx Attention Deficit Hyperactivity Disorder, Hx Eating Disorder, Hx Panic Disorder, Hx Post Traumatic Stress Disorder, Hx Schizophrenia, Hx Bipolar Disorder, Hx Suicide Attempt, Hx of Violent Episodes Against Others, Hx Substance Abuse - Surgical History Surgery Procedure, Year, and Place: none - Immunization History Date of Tetanus Vaccine: Unk Date of Influenza Vaccine: None Infectious Disease History: No Infectious Disease History: Denies: Hx Hepatitis, Hx Human Immunodeficiency Virus (HIV), Hx of Known/ Suspected MRSA, History Other Infectious Disease, Traveled Outside the [place] in Last 30 Days - Family History Known Family History: Positive: Other - Biological mother - EtOH and drug abuse Negative: Blood Disorder - Social History Alcohol Use: None Alcohol Amount: pt denies during Hx Substance Use: No Substance Use Type: Reports: None Substance Use Comment - Amount & Last Used: used in past, also ecstacy Hx Tobacco Use: Yes Smoking Status (MU): Former Smoker Type: Cigarettes Have You Smoked in the Last Year: No Review of Systems Negative: Fever Negative: Chest Pain Negative: Shortness Of Breath Positive: Myalgia - left thigh pain All Other Systems Reviewed And Are Negative: Yes Physical Exam Triage Information Reviewed: Yes Vital Signs On Initial Exam: Initial Vitals Temp Pulse Resp BP Pulse Ox 97.2 F 90 13 117/81 97 03/16/18 18:39 03/16/18 18:39 03/16/18 18:39 03/16/18 18:39 03/16/18 18:39 Vital Signs Reviewed: Yes Appearance: Positive: Well-Appearing Skin: Positive: Warm, Dry Head/Face: Positive: Normal Head/Face Inspection Eyes: Positive: Normal, Conjunctiva Clear ENT: Positive: Pharynx normal Respiratory/Lung Sounds: Positive: Clear to Auscultation, Breath Sounds Present Cardiovascular: Positive: Normal, RRR Musculoskeletal: Positive: Strength/ROM Intact - left leg, Other - tenderness over left thigh, neg ballotment, nontender left knee, good pulses, sensation grossly intact. Negative: Edema Left Neurological: Positive: Normal Psychiatric: Positive: Normal Diagnostics - Vital Signs Vital Signs Temp Pulse Resp BP Pulse Ox 03/16/18 18:40 93 117/81 97 03/16/18 18:39 97.2 F 90 13 117/81 97 - Laboratory Lab Statement: Any lab studies that have been ordered have been reviewed, and results considered in the medical decision making process. Lower Extremity Course/Dx - Course Course Of Treatment: 22-year-old female presents with left thigh pain since this morning. States that 2 weeks ago she has found a bump under the surface of her left thigh. It was not painful. States the bump has gone bigger. States she's been occasionally having knee pain. No swelling noted to the knee. She denies any chest pain or shortness breath. No rash. No injury. No recent tick exposure. No fevers. She states that today she also been having some numbness of her left foot. No back pain. No saddle anaesthesia or loss of bowel or bladder. No fever. No family history of blood clots. Is nonsmoker. No recent travel or surgeries. On exam tenderness of left lower side. No edema felt. No edema noted to the left knee. Full range of motion of left knee. Neurovascularly intact. D-dimer less than 200 so no blood clot. knee xray no joint effusion. likely muscular. will have take ibuprofen and ice. patient understand and agrees with plan. - Diagnoses Differential Diagnosis/HQI/PQRI: Positive: DVT, Sprain, Strain Provider Diagnoses: Left thigh pain Discharge - Sign-Out/Discharge Documenting (check all that apply): Discharge/Admit/Transfer - Discharge Plan Condition: Good Disposition: HOME Patient Education Materials: Leg Pain (ED) Referrals: Suzi Hernandez MD [Primary Care Provider] - Additional Instructions: Take Tylenol or ibuprofen every 6 hours as needed for pain Apply ice, rest, elevate Follow up with primary care physician within 5 days Return to ED if develop any new or worsening symptoms - Billing Disposition and Condition Condition: GOOD Disposition: Home
--- NOTE | 2018-03-16 19:37 | RAD ---
INDICATION: Left knee pain COMPARISON: None TECHNIQUE: AP, lateral, tunnel, and sunrise views were obtained. FINDINGS: The bony structures, joint spaces, and soft tissues are normal for age. IMPRESSION: NEGATIVE EXAMINATION.
[2018-03-16 19:59] VITALS: BP 124/70
== END 2018-03-16 19:58 | disposition home or self-care (01) ==
LOC: ED 18:34
DX: M79.652 Pain in left thigh (principal); R01.1 Cardiac murmur, unspecified; J45.909 Unspecified asthma, uncomplicated; F41.9 Anxiety disorder, unspecified; F31.9 Bipolar disorder, unspecified; F43.10 Post-traumatic stress disorder, unspecified; Z87.440 Personal history of urinary (tract) infections; Z88.0 Allergy status to penicillin; Z88.8 Allergy status to other drugs, medicaments and biological substances; Z91.018 Allergy to other foods; Z81.1 Family history of alcohol abuse and dependence; Z87.891 Personal history of nicotine dependence
CPT/HCPCS: 36415; 85379; 99282

== ENCOUNTER 2018-03-28 11:48 | Emergency (ER) | payer OTHER ==
[2018-03-28] MEDS ORDERED: Pantoprazole IV* 40 MG IV ONE (12:30)
[2018-03-28] MEDS ORDERED: Lidocaine 2% VISCOUS* 15 ML UDC PO ONE (12:30)
[2018-03-28] MEDS ORDERED: Ondansetron INJ* 2 MG/ML VIAL IV ONE (12:30)
[2018-03-28] MEDS ORDERED: NS 0.9% 1000 ML* 1,000 ML IV ONE (12:30)
[2018-03-28] MEDS ORDERED: Al Hydrox/Mg Hydrox/Simet LIQ* 30 ML UDC PO ONE (12:30)
[2018-03-28 12:45] LABS: ABS Basophils 0 10^3/ul (0-0.2); ABS Eosinophils 0.2 10^3/ul (0-0.6); ABS Lymphocytes 2.2 10^3/ul (1.0-4.8); ABS Monocytes 0.5 10^3/ul (0-0.8); ABS Neutrophils 3.6 10^3/ul (1.5-7.7); ABS Nucleated RBC 0 10^3/ul; Eosinophil % 2.6 % (0-6); Hematocrit 35 % (35-47); Lymphocyte % 33.4 % (25-47); Mean Corpuscular HGB Conc 32 g/dl (31-36); Mean Corpuscular Hemoglobin 22 pg (27-31); Mean Corpuscular Volume 69 fL (80-97); Mean Platelet Volume 8.7 um3 (7.4-10.4); Nucleated Red Blood Cells % 0.1; Platelet Count 382 10^3/ul (150-450); Red Blood Count 5.06 10^6/ul (4.00-5.40); Red Cell Distribution Width 18 % (10.5-15); White Blood Count 6.6 10^3/ul (3.5-10.8)
[2018-03-28 12:57] LABS: EGFR Non-African American 113.1 (>60)
--- NOTE | 2018-03-28 13:03 | ED ---
GI/ HPI - HPI Summary HPI Summary: 22-year-old female presents with epigastric abdominal pain for the past day. States she has a history of heartburn and feels the same just more intense. She states she tried some tums but it did not seem to help. She has been vomiting.and is nauseous. No diarrhea or constipation. No one else is sick. She denies any anything different. No chest pain or shortness of breath. She describes the pain as burning pain. has had a previous but no other surgeries. pain is worst when is laying down. No blood in her vomit or in her stool. No dark tarry stool. Doesn't have a history of chronic ibuprofen use. She denies any urinary symptoms. pain does not radiate anywhere. no flank pain. - History of Current Complaint Chief Complaint: EDAbdPain Time Seen by Provider: 03/28/18 12:14 Stated Complaint: ABD PAIN,VOMITING Hx Last Menstrual Period: 10/05/16 Pain Intensity: 8 - Additional Pertinent History Primary Care Physician: KENYA - Allergy/Home Medications Allergies/Adverse Reactions: Allergies Allergy/AdvReac Type Severity Reaction Status Date / Time amoxicillin Allergy Unknown Verified 03/28/18 11:53 Reaction Details hydroxyzine [From Atarax] Allergy See Comment Verified 03/28/18 11:53 lactose Allergy Abdominal Verified 03/28/18 11:53 Pain lorazepam [From Ativan] Allergy Unknown Verified 03/28/18 11:53 Reaction Details Penicillins Allergy Unknown Verified 03/28/18 11:53 Reaction Details ziprasidone [From Geodon] Allergy See Comment Verified 03/28/18 11:53 wheat AdvReac Intermediate Vomiting Uncoded 03/28/18 11:53 fruit AdvReac Unknown Uncoded 03/28/18 11:53 Reaction Details PMH/Surg Hx/FS Hx/Imm Hx Endocrine/Hematology History: Denies: Hx Anticoagulant Therapy, Hx Diabetes, Hx Thyroid Disease Cardiovascular History: Reports: Other Cardiovascular Problems/Disorders - MURMUR Denies: Hx Hypertension Respiratory History: Reports: Hx Asthma Denies: Hx Chronic Obstructive Pulmonary Disease (COPD), Hx Lung Cancer, Hx Pneumonia, Hx Pulmonary Embolism, Other Respiratory Problems/Disorders GI History: Reports: Other GI Disorders - wheat allergy and lactose intolerance Denies: Hx Gall Bladder Disease, Hx Gastrointestinal Bleed, Hx Ulcer, Hx Urosepsis History: Reports: Other Problems/Disorders - hx multiple UTIs Denies: Hx Kidney Stones, Hx Renal Disease Neurological History: Reports: Hx Seizures Denies: Hx Dementia, Hx Migraine, Hx Transient Ischemic Attacks (TIA) Psychiatric History: Reports: Hx Anxiety, Hx Depression, Hx Inpatient Treatment - [facility], [facility], [facility], Other Psychiatric Issues/ Disorders - borderline personality, bipolar, PTSD Denies: Hx Attention Deficit Hyperactivity Disorder, Hx Eating Disorder, Hx Panic Disorder, Hx Post Traumatic Stress Disorder, Hx Schizophrenia, Hx Bipolar Disorder, Hx Suicide Attempt, Hx of Violent Episodes Against Others, Hx Substance Abuse - Surgical History Surgery Procedure, Year, and Place: none - Immunization History Date of Tetanus Vaccine: Unk Date of Influenza Vaccine: None Infectious Disease History: No Infectious Disease History: Denies: Hx Hepatitis, Hx Human Immunodeficiency Virus (HIV), Hx of Known/ Suspected MRSA, History Other Infectious Disease, Traveled Outside the [place] in Last 30 Days - Family History Known Family History: Positive: Other - Biological mother - EtOH and drug abuse Negative: Blood Disorder - Social History Alcohol Use: None Alcohol Amount: pt denies during Hx Substance Use: No Substance Use Type: Reports: None Substance Use Comment - Amount & Last Used: used in past, also ecstacy Hx Tobacco Use: Yes Smoking Status (MU): Former Smoker Type: Cigarettes Have You Smoked in the Last Year: No Review of Systems Negative: Fever Negative: Chest Pain Negative: Shortness Of Breath Positive: Abdominal Pain, Vomiting, Nausea. Negative: Diarrhea All Other Systems Reviewed And Are Negative: Yes Physical Exam Triage Information Reviewed: Yes Vital Signs On Initial Exam: Initial Vitals Temp Pulse Resp BP Pulse Ox 98.8 F 111 16 118/65 96 03/28/18 11:50 03/28/18 11:50 03/28/18 11:50 03/28/18 11:50 03/28/18 11:50 Vital Signs Reviewed: Yes Appearance: Positive: Well-Appearing Skin: Positive: Warm, Dry Head/Face: Positive: Normal Head/Face Inspection Eyes: Positive: Normal, Conjunctiva Clear ENT: Positive: Pharynx normal Respiratory/Lung Sounds: Positive: Clear to Auscultation, Breath Sounds Present Cardiovascular: Positive: Normal, RRR Abdomen Description: Positive: Soft, Other: - tenderness left upper quadrant Bowel Sounds: Positive: Present Musculoskeletal: Positive: Normal Neurological: Positive: Normal Psychiatric: Positive: Normal Diagnostics - Vital Signs Vital Signs Temp Pulse Resp BP Pulse Ox 03/28/18 11:50 98.8 F 111 16 118/65 96 - Laboratory Lab Results: Lab Results 03/28/18 03/28/18 Range/Units 12:18 12:18 WBC 6.6 (3.5-10.8) 10^3/ul RBC 5.06 (4.00-5.40) 10^6/ul Hgb 11.0 L (12.0-16.0) g/dl Hct 35 (35-47) % MCV 69 L (80-97) fL MCH 22 L (27-31) pg MCHC 32 (31-36) g/dl RDW 18 H (10.5-15) % Plt Count 382 (150-450) 10^3/ul MPV 8.7 (7.4-10.4) um3 Neut % (Auto) 55.1 (38-83) % Lymph % (Auto) 33.4 (25-47) % [place] % (Auto) 8.3 H (0-7) % Eos % (Auto) 2.6 (0-6) % Baso % (Auto) 0.6 (0-2) % Absolute Neuts (auto) 3.6 (1.5-7.7) 10^3/ul Absolute Lymphs (auto) 2.2 (1.0-4.8) 10^3/ul Absolute Monos (auto) 0.5 (0-0.8) 10^3/ul Absolute Eos (auto) 0.2 (0-0.6) 10^3/ul Absolute Basos (auto) 0 (0-0.2) 10^3/ul Absolute Nucleated RBC 0 10^3/ul Nucleated RBC % 0.1 Sodium 140 (135-145) mmol/L Potassium 4.0 (3.5-5.0) mmol/L Chloride 108 (101-111) mmol/L Carbon Dioxide 26 (22-32) mmol/L Anion Gap 6 (2-11) mmol/L BUN 8 (6-24) mg/dL Creatinine 0.66 (0.51-0.95) mg/dL Est GFR ( Amer) 136.8 (>60) Est GFR (Non-Af Amer) 113.1 (>60) BUN/Creatinine Ratio 12.1 (8-20) Glucose 93 (70-100) mg/dL Calcium 9.2 (8.6-10.3) mg/dL Total Bilirubin 0.60 (0.2-1.0) mg/dL AST 11 L (13-39) U/L ALT 8 (7-52) U/L Alkaline Phosphatase 69 (34-104) U/L C-Reactive Protein 10.89 H (<8.01) mg/L Total Protein 7.1 (6.4-8.9) g/dL Albumin 4.2 (3.2-5.2) g/dL Globulin 2.9 (2-4) g/dL Albumin/Globulin Ratio 1.4 (1-3) Lipase 19 (11.0-82.0) U/L Beta HCG, Quant < 0.60 mIU/mL Result Diagrams: 03/28/18 12:18 03/28/18 12:18 Lab Statement: Any lab studies that have been ordered have been reviewed, and results considered in the medical decision making process. GIGU Course/Dx - Course Course Of Treatment: 22-year-old female presents with epigastric abdominal pain for the past day. States she has a history of heartburn and feels the same just more intense. She states she tried some tums but it did not seem to help. She has been vomiting.and is nauseous. No diarrhea or constipation. No one else is sick. She denies any anything different. No chest pain or shortness of breath. She describes the pain as burning pain. has had a previous c- section but no other surgeries. pain is worst when is laying down. No blood in her vomit or in her stool. No dark tarry stool. Doesn't have a history of chronic ibuprofen use. On exam has tenderness in left upper quadrant. Negative Miller's. wbc normal. lft normal. gave gi cocktail and feeling better. will place on omeprazole and have follow up with GI. patient understand and agrees with plan. - Diagnoses Differential Diagnoses - Female: Cholelithiasis, Gastritis, Gastroenteritis ( Viral), Gerd Provider Diagnoses: Epigastric pain Discharge - Sign-Out/Discharge Documenting (check all that apply): Patient Departure - Discharge Plan Condition: Good Disposition: HOME Prescriptions: Al Hydrox/Mg Hydrox/Simet LIQ* [Maalox Plus*] 30 ml PO Q6H PRN #1 udc PRN Reason: Dyspepsia Lidocaine 2% VISCOUS* [Xylocaine 2% Viscous*] 15 ml PO Q6H PRN #1 btl PRN Reason: Dyspepsia Omeprazole CAP* [Prilosec CAP* 20 MG] 20 mg PO DAILY #14 cap. Ondansetron ODT TAB* [Zofran 4 MG Odt TAB*] 4 mg PO Q6H PRN #16 tab.odt PRN Reason: Nausea Patient Education Materials: Gastritis (ED) Referrals: Suzi Hernandez MD [Primary Care Provider] - Mamadou Welsh MD [Medical Doctor] - Additional Instructions: symptoms likely due to gastritis Take omeprazole once a day for 14 days Take Maalox 30ml with lidocaine 15ml every 6 hours for epigastric pain as needed take zofran every 6 hours for nausea Avoid acidic foods Elevated head of bed Stay upright for at least 30 mins after eating Follow up with primary within 5 days, may need to follow up with GI in the future Return to ED if develop any new or worsening symptoms - Billing Disposition and Condition Condition: GOOD Disposition: Home
[2018-03-28 13:08] LABS: Urine Appearance Clear; Urine Blood Negative (Negative); Urine Color Yellow; Urine Ketones Negative (Negative); Urine Protein Negative (Negative); Urine Red Blood Cell Trace(0-2/hpf) (Absent); Urine Specific Gravity 1.013 (1.010-1.030); Urine Urobilinogen Negative (Negative); Urine White Blood Cell Trace(0-5/hpf) (Absent)
[2018-03-28] MEDS ORDERED: Famotidine TAB* 20 MG PO ONE (13:21)
[2018-03-28 13:44] VITALS: BP 112/63
== END 2018-03-28 13:44 | disposition home or self-care (01) ==
LOC: ED 11:48
DX: R10.13 Epigastric pain (principal); R11.2 Nausea with vomiting, unspecified; R01.1 Cardiac murmur, unspecified; J45.909 Unspecified asthma, uncomplicated; Z87.440 Personal history of urinary (tract) infections; R56.9 Unspecified convulsions; F41.9 Anxiety disorder, unspecified; F32.9 Major depressive disorder, single episode, unspecified; Z88.0 Allergy status to penicillin; Z88.8 Allergy status to other drugs, medicaments and biological substances; Z91.018 Allergy to other foods; Z81.1 Family history of alcohol abuse and dependence; Z87.891 Personal history of nicotine dependence
CPT/HCPCS: 36415; 80053; 81003; 81015; 83690; 84702; 85025; 86140; 87086; 96374; 96375; 99282; A9270-GY; J2405

== ENCOUNTER 2018-04-28 15:20 | Emergency (ER) | payer OTHER ==
[2018-04-28] MEDS ORDERED: NS 0.9% 1000 ML* 1,000 ML IV ONE (21:21)
[2018-04-28] MEDS ORDERED: Ketorolac INJ* 30 MG/ML 1 ML VIAL IV PUSH ONE (21:21)
[2018-04-28] MEDS ORDERED: PROCHLORPERAZINE INJ 5 MG/ML 2 ML VIAL IV ONE (21:22)
[2018-04-28] MEDS ORDERED: diPHENhydraMINE IV* 50 MG/ML 1 ml VIAL (BENADRYL) IV ONE (21:28)
--- NOTE | 2018-04-28 21:33 | ED ---
Headache - HPI Summary HPI Summary: 22-year-old female presents with headache today. States she has history of migraines. She states that only thing that is different is the location. This is not the worst headache of her life. She notes nausea and she did vomit when she tried to eat. She took some naproxen Tylenol which she normally takes with minimal relief. She admits to photophobia. She denies any fevers. She denies any sinus congestion. No neck pain. She denies any change in vision. - History Of Current Complaint Chief Complaint: EDHeadache Stated Complaint: MIGRAINE/NAUSEA Time Seen by Provider: 04/28/18 21:20 Hx Last Menstrual Period: 10/05/16 - Allergies/Home Medications Allergies/Adverse Reactions: Allergies Allergy/AdvReac Type Severity Reaction Status Date / Time amoxicillin Allergy Unknown Verified 04/28/18 15:30 Reaction Details hydroxyzine [From Atarax] Allergy See Comment Verified 04/28/18 15:30 lactose Allergy Abdominal Verified 04/28/18 15:30 Pain lorazepam [From Ativan] Allergy Unknown Verified 04/28/18 15:30 Reaction Details Penicillins Allergy Unknown Verified 04/28/18 15:30 Reaction Details ziprasidone [From Geodon] Allergy See Comment Verified 04/28/18 15:30 wheat AdvReac Intermediate Vomiting Uncoded 04/28/18 15:30 fruit AdvReac Unknown Uncoded 04/28/18 15:30 Reaction Details PMH/Surg Hx/FS Hx/Imm Hx Endocrine/Hematology History: Denies: Hx Anticoagulant Therapy, Hx Diabetes, Hx Thyroid Disease Cardiovascular History: Reports: Other Cardiovascular Problems/Disorders - MURMUR Denies: Hx Hypertension Respiratory History: Reports: Hx Asthma Denies: Hx Chronic Obstructive Pulmonary Disease (COPD), Hx Lung Cancer, Hx Pneumonia, Hx Pulmonary Embolism, Other Respiratory Problems/Disorders GI History: Reports: Other GI Disorders - wheat allergy and lactose intolerance Denies: Hx Gall Bladder Disease, Hx Gastrointestinal Bleed, Hx Ulcer, Hx Urosepsis History: Reports: Other Problems/Disorders - hx multiple UTIs Denies: Hx Kidney Stones, Hx Renal Disease Neurological History: Reports: Hx Seizures Denies: Hx Dementia, Hx Migraine, Hx Transient Ischemic Attacks (TIA) Psychiatric History: Reports: Hx Anxiety, Hx Depression, Hx Inpatient Treatment - [facility], Hx Community Mental Health Tx - [facility], [facility], Other Psychiatric Issues/ Disorders - borderline personality, bipolar, PTSD Denies: Hx Attention Deficit Hyperactivity Disorder, Hx Eating Disorder, Hx Panic Disorder, Hx Post Traumatic Stress Disorder, Hx Schizophrenia, Hx Bipolar Disorder, Hx Suicide Attempt, Hx of Violent Episodes Against Others, Hx Substance Abuse - Surgical History Surgery Procedure, Year, and Place: none - Immunization History Date of Tetanus Vaccine: Unk Date of Influenza Vaccine: None Infectious Disease History: No Infectious Disease History: Denies: Hx Hepatitis, Hx Human Immunodeficiency Virus (HIV), Hx of Known/ Suspected MRSA, History Other Infectious Disease, Traveled Outside the [place] in Last 30 Days - Family History Known Family History: Positive: Other - Biological mother - EtOH and drug abuse Negative: Blood Disorder - Social History Alcohol Use: None Alcohol Amount: pt denies during Hx Substance Use: No Substance Use Type: Reports: None Substance Use Comment - Amount & Last Used: used in past, also ecstacy Hx Tobacco Use: Yes Smoking Status (MU): Former Smoker Type: Cigarettes Have You Smoked in the Last Year: No Review of Systems Negative: Fever Negative: Chest Pain Negative: Shortness Of Breath Positive: Vomiting, Nausea. Negative: Abdominal Pain Positive: Headache All Other Systems Reviewed And Are Negative: Yes Physical Exam Triage Information Reviewed: Yes Vital Signs On Initial Exam: Initial Vitals Temp Pulse Resp BP Pulse Ox 97.2 F 100 20 136/80 96 04/28/18 15:23 04/28/18 15:23 04/28/18 15:23 04/28/18 15:23 04/28/18 15:23 Vital Signs Reviewed: Yes Appearance: Positive: Well-Appearing Skin: Positive: Warm, Dry Head/Face: Positive: Normal Head/Face Inspection Eyes: Positive: Normal, EOMI, MELITA, Conjunctiva Clear ENT: Positive: Normal ENT inspection, Pharynx normal, TMs normal Respiratory/Lung Sounds: Positive: Clear to Auscultation, Breath Sounds Present Cardiovascular: Positive: Normal, RRR Musculoskeletal: Positive: Normal Neurological: Positive: Sensory/Motor Intact, Alert, Oriented to Person Place, Time, CN Intact II-III Psychiatric: Positive: Normal Diagnostics - Vital Signs Vital Signs Temp Pulse Resp BP Pulse Ox 04/28/18 20:16 97.7 F 76 16 131/79 97 04/28/18 18:33 98.5 F 84 18 140/75 98 04/28/18 15:23 97.2 F 100 20 136/80 96 - Laboratory Result Diagrams: 04/28/18 21:41 04/28/18 21:41 Lab Statement: Any lab studies that have been ordered have been reviewed, and results considered in the medical decision making process. Re-Evaluation - Re-Evaluation First Eval Re-Evaluation Time: 22:30 Change: Improved Comment: pain is improved, would like to go home Headache Course/Dx - Course Course Of Treatment: 22-year-old female presents with headache today. States she has history of migraines. She states that only thing that is different is the location. This is not the worst headache of her life. She notes nausea and she did vomit when she tried to eat. She took some naproxen Tylenol which she normally takes with minimal relief. She admits to photophobia. She denies any fevers. She denies any sinus congestion. No neck pain. She denies any change in vision. on exam normal neuro exam. gave toradol, benadryl and compazine and feeling a bit better. patient would like to go home. patient understand and agrees with plan. - Diagnoses Differential Diagnosis/HQI/PQRI: Migraine, Tension Headache, Viral Syndrome Provider Diagnoses: Headache Discharge - Sign-Out/Discharge Documenting (check all that apply): Patient Departure - Discharge Plan Condition: Good Disposition: HOME Patient Education Materials: Migraine Headache (ED) Referrals: Suzi Hernandez MD [Primary Care Provider] - Additional Instructions: Take Tylenol or ibuprofen for pain every 6 hours Follow up with primary within 5 days Return to ED if develop any new or worsening symptoms - Billing Disposition and Condition Condition: GOOD Disposition: Home
[2018-04-28 21:53] LABS: ABS Basophils 0.1 10^3/ul (0-0.2); ABS Eosinophils 0.2 10^3/ul (0-0.6); ABS Lymphocytes 2.6 10^3/ul (1.0-4.8); ABS Monocytes 0.8 10^3/ul (0-0.8); ABS Neutrophils 5.7 10^3/ul (1.5-7.7); ABS Nucleated RBC 0 10^3/ul; Eosinophil % 2.1 % (0-6); Hematocrit 32 % (35-47); Hemoglobin 10.1 g/dl (12.0-16.0); Lymphocyte % 27.7 % (25-47); Mean Corpuscular HGB Conc 32 g/dl (31-36); Mean Corpuscular Hemoglobin 23 pg (27-31); Mean Corpuscular Volume 70 fL (80-97); Mean Platelet Volume 8.7 um3 (7.4-10.4); Nucleated Red Blood Cells % 0; Platelet Count 334 10^3/ul (150-450); Red Blood Count 4.49 10^6/ul (4.00-5.40); Red Cell Distribution Width 18 % (10.5-15); White Blood Count 9.4 10^3/ul (3.5-10.8)
[2018-04-28 22:05] LABS: EGFR Non-African American 128.7 (>60)
[2018-04-28 22:36] VITALS: BP 100/62
== END 2018-04-28 22:35 | disposition home or self-care (01) ==
LOC: ED 15:20
DX: R51 Headache (principal); J45.909 Unspecified asthma, uncomplicated; Z87.891 Personal history of nicotine dependence
CPT/HCPCS: 36415; 80053; 84702; 85025; 96361; 96374; 96375; 99283; J0780; J1200; J1885

== ENCOUNTER → 2018-05-13 09:57 | Emergency (ER) | payer OTHER ==
[2018-05-13 11:41] LABS: INR 1.01 (0.77-1.02)
[2018-05-13 11:43] LABS: EGFR Non-African American 117.1 (>60)
[2018-05-13 11:44] LABS: ABS Basophils 0 10^3/ul (0-0.2); ABS Eosinophils 0 10^3/ul (0-0.6); ABS Lymphocytes 1.4 10^3/ul (1.0-4.8); ABS Monocytes 0.5 10^3/ul (0-0.8); ABS Neutrophils 4.7 10^3/ul (1.5-7.7); ABS Nucleated RBC 0 10^3/ul; Eosinophil % 0.5 % (0-6); Hematocrit 36 % (35-47); Hemoglobin 11.3 g/dl (12.0-16.0); Lymphocyte % 21.1 % (25-47); Mean Corpuscular HGB Conc 32 g/dl (31-36); Mean Corpuscular Hemoglobin 23 pg (27-31); Mean Corpuscular Volume 71 fL (80-97); Mean Platelet Volume 8.6 um3 (7.4-10.4); Nucleated Red Blood Cells % 0.1; Platelet Count 428 10^3/ul (150-450); Red Blood Count 5.02 10^6/ul (4.00-5.40); Red Cell Distribution Width 17 % (10.5-15); White Blood Count 6.6 10^3/ul (3.5-10.8)
[2018-05-13 13:04] VITALS: BP 108/68
[2018-05-13 13:56] LABS: Urine Appearance Cloudy; Urine Blood 3+ (Negative); Urine Color Yellow; Urine Ketones Negative (Negative); Urine Protein Negative (Negative); Urine Red Blood Cell 3+(>10/hpf) (Absent); Urine Specific Gravity 1.017 (1.010-1.030); Urine Urobilinogen Negative (Negative); Urine White Blood Cell 1+(6-10/hpf) (Absent)
--- NOTE | 2018-05-14 06:33 | ED ---
GI/ HPI - HPI Summary HPI Summary: Patient is a 22-year-old S1 female presenting to the ED with 2 days vaginal bleeding. She states she was to get her menses approximately 2 weeks ago, but this never occurred. Chance of , however endorses the Nexplanon. History includes 9 months ago and she is concerned over a herniation. She endorses changing her pad every 1-2 hours, but denies soaking through the pad. Denies any trauma or injury to the area. Denies any abdominal pain. Endorses some cramping which feels like "period cramps." She states her periods are normally very regular and with medium flow. She states this is very abnormal for her. Denies any vaginal discharge or odor otherwise. Denies history or chance of STDs. Endorses some weakness, but denies any syncopal episodes. History of anemia, for which she has been taking iron. Denies any chest pain, shortness of breath, urinary symptoms, myalgias, fever, sweats, chills. - History of Current Complaint Chief Complaint: EDVaginalBleeding Time Seen by Provider: 05/13/18 11:07 Stated Complaint: VAGINAL BLEEDING Hx Obtained From: Patient Hx Last Menstrual Period: 10/05/16 Onset/Duration: Started Hours Ago Timing: Constant, Lasting Days Severity: Moderate Current Severity: Moderate Number of Pads per Day: 8 Number of Pads per Hour: 1 Pain Intensity: 8 Pain Characteristics: Cramping Additional Signs & Symptoms: Positive: Menses Irregular, Other: - Nexplanon Aggravating Factor(s): Nothing Alleviating Factor(s): Nothing - Risk Factors GI Bleed Risk Factor(s): Negative Spontaneous AB Risk Factor(s): Negative Placental Abruption Risk Factor(s): Negative Ovarian Torsion Risk Factor(s): Negative - Additional Pertinent History Primary Care Physician: [id number] - Allergy/Home Medications Allergies/Adverse Reactions: Allergies Allergy/AdvReac Type Severity Reaction Status Date / Time amoxicillin Allergy Unknown Verified 05/13/18 10:08 Reaction Details hydroxyzine [From Atarax] Allergy See Comment Verified 05/13/18 10:08 lactose Allergy Abdominal Verified 05/13/18 10:08 Pain lorazepam [From Ativan] Allergy Unknown Verified 05/13/18 10:08 Reaction Details Penicillins Allergy Unknown Verified 05/13/18 10:08 Reaction Details ziprasidone [From Geodon] Allergy See Comment Verified 05/13/18 10:08 wheat AdvReac Intermediate Vomiting Uncoded 05/13/18 10:08 fruit AdvReac Unknown Uncoded 05/13/18 10:08 Reaction Details PMH/Surg Hx/FS Hx/Imm Hx Previously Healthy: Yes Endocrine/Hematology History: Denies: Hx Anticoagulant Therapy, Hx Diabetes, Hx Thyroid Disease Cardiovascular History: Reports: Other Cardiovascular Problems/Disorders - MURMUR Denies: Hx Hypertension Respiratory History: Reports: Hx Asthma Denies: Hx Chronic Obstructive Pulmonary Disease (COPD), Hx Lung Cancer, Hx Pneumonia, Hx Pulmonary Embolism, Other Respiratory Problems/Disorders GI History: Reports: Other GI Disorders - wheat allergy and lactose intolerance Denies: Hx Gall Bladder Disease, Hx Gastrointestinal Bleed, Hx Ulcer, Hx Urosepsis History: Reports: Other Problems/Disorders - hx multiple UTIs Denies: Hx Kidney Stones, Hx Renal Disease Neurological History: Reports: Hx Seizures Denies: Hx Dementia, Hx Migraine, Hx Transient Ischemic Attacks (TIA) Psychiatric History: Reports: Hx Anxiety, Hx Depression, Hx Inpatient Treatment - [facility], Hx Community Mental Health Tx - [facility], [facility], Other Psychiatric Issues/ Disorders - borderline personality, bipolar, PTSD Denies: Hx Attention Deficit Hyperactivity Disorder, Hx Eating Disorder, Hx Panic Disorder, Hx Post Traumatic Stress Disorder, Hx Schizophrenia, Hx Bipolar Disorder, Hx Suicide Attempt, Hx of Violent Episodes Against Others, Hx Substance Abuse - Surgical History Surgery Procedure, Year, and Place: none - Immunization History Date of Tetanus Vaccine: Unk Date of Influenza Vaccine: None Hx Pertussis Vaccination: No Immunizations Up to Date: Yes Infectious Disease History: No Infectious Disease History: Denies: Hx Hepatitis, Hx Human Immunodeficiency Virus (HIV), Hx of Known/ Suspected MRSA, History Other Infectious Disease, Traveled Outside the [place] in Last 30 Days - Family History Known Family History: Positive: None, Unknown - Adopted, Other - Biological mother - EtOH and drug abuse Negative: Blood Disorder - Social History Occupation: Unemployed Lives: With Family Alcohol Use: None Alcohol Amount: pt denies during Hx Substance Use: No Substance Use Type: Reports: None Substance Use Comment - Amount & Last Used: used in past, also ecstacy Hx Tobacco Use: Yes Smoking Status (MU): Former Smoker Type: Cigarettes Have You Smoked in the Last Year: No Review of Systems Constitutional: Negative Negative: Fever, Chills, Fatigue, Skin Diaphoresis Negative: Palpitations, Chest Pain Negative: Shortness Of Breath, Cough Positive: Abdominal Pain - cramping Positive: other - vaginal bleeding Negative: Arthralgia, Myalgia Negative: Rash, Bruising Neurological: Negative All Other Systems Reviewed And Are Negative: Yes Physical Exam Triage Information Reviewed: Yes Vital Signs On Initial Exam: Initial Vitals Temp Pulse Resp BP Pulse Ox 97.8 F 76 18 94/64 98 05/13/18 10:03 05/13/18 10:03 05/13/18 10:03 05/13/18 10:03 05/13/18 10:03 Vital Signs Reviewed: Yes Appearance: Positive: Well-Appearing, Well-Nourished Skin: Positive: Warm, Skin Color Reflects Adequate Perfusion Head/Face: Positive: Normal Head/Face Inspection Eyes: Positive: EOMI, MELITA, Conjunctiva Clear Neck: Positive: Supple, No Lymphadenopathy Respiratory/Lung Sounds: Positive: Clear to Auscultation, Breath Sounds Present Cardiovascular: Positive: Normal, RRR, Pulses are Symmetrical in both Upper and Lower Extremities Neurological: Positive: Sensory/Motor Intact, Alert, Oriented to Person Place, Time, Speech Normal Psychiatric: Positive: Affect/Mood Appropriate Diagnostics - Vital Signs Vital Signs Temp Pulse Resp BP Pulse Ox 05/13/18 13:00 65 97 05/13/18 12:42 71 108/68 98 05/13/18 12:30 88 98 05/13/18 12:12 68 112/72 98 05/13/18 12:00 73 99 05/13/18 11:42 83 115/75 99 05/13/18 11:30 77 98 05/13/18 11:14 82 98 05/13/18 11:12 91 121/73 96 05/13/18 10:03 97.8 F 76 18 94/64 98 - Laboratory Lab Results: Lab Results 05/13/18 05/13/18 05/13/18 Range/Units 11:12 11:12 11:12 WBC 6.6 (3.5-10.8) 10^3/ul RBC 5.02 (4.00-5.40) 10^6/ul Hgb 11.3 L (12.0-16.0) g/dl Hct 36 (35-47) % MCV 71 L (80-97) fL MCH 23 L (27-31) pg MCHC 32 (31-36) g/dl RDW 17 H (10.5-15) % Plt Count 428 (150-450) 10^3/ul MPV 8.6 (7.4-10.4) um3 Neut % (Auto) 70.6 (38-83) % Lymph % (Auto) 21.1 L (25-47) % Davidson % (Auto) 7.1 H (0-7) % Eos % (Auto) 0.5 (0-6) % Baso % (Auto) 0.7 (0-2) % Absolute Neuts (auto) 4.7 (1.5-7.7) 10^3/ul Absolute Lymphs (auto) 1.4 (1.0-4.8) 10^3/ul Absolute Monos (auto) 0.5 (0-0.8) 10^3/ul Absolute Eos (auto) 0 (0-0.6) 10^3/ul Absolute Basos (auto) 0 (0-0.2) 10^3/ul Absolute Nucleated RBC 0 10^3/ul Nucleated RBC % 0.1 INR (Anticoag Therapy) 1.01 (0.77-1.02) APTT 29.8 (26.0-36.3) seconds Sodium 138 (135-145) mmol/L Potassium 3.8 (3.5-5.0) mmol/L Chloride 105 (101-111) mmol/L Carbon Dioxide 26 (22-32) mmol/L Anion Gap 7 (2-11) mmol/L BUN 9 (6-24) mg/dL Creatinine 0.64 (0.51-0.95) mg/dL Est GFR ( Amer) 141.7 (>60) Est GFR (Non-Af Amer) 117.1 (>60) BUN/Creatinine Ratio 14.1 (8-20) Glucose 99 (70-100) mg/dL Lactic Acid (0.5-2.0) mmol/L Calcium 9.2 (8.6-10.3) mg/dL Total Bilirubin 0.50 (0.2-1.0) mg/dL AST 12 L (13-39) U/L ALT 8 (7-52) U/L Alkaline Phosphatase 63 (34-104) U/L Total Protein 7.0 (6.4-8.9) g/dL Albumin 4.3 (3.2-5.2) g/dL Globulin 2.7 (2-4) g/dL Albumin/Globulin Ratio 1.6 (1-3) Beta HCG, Quant < 0.60 mIU/mL Urine Color Urine Appearance Urine pH (5-9) Ur Specific [place] (1.010-1.030) Urine Protein (Negative) Urine Ketones (Negative) Urine Blood (Negative) Urine Nitrate (Negative) Urine Bilirubin (Negative) Urine Urobilinogen (Negative) Ur Leukocyte Esterase (Negative) Urine WBC (Auto) (Absent) Urine RBC (Auto) (Absent) Ur Squamous Epith Cells (Absent) Urine Bacteria (Absent) Urine Glucose (Negative) 05/13/18 05/13/18 Range/Units 11:12 13:13 WBC (3.5-10.8) 10^3/ul RBC (4.00-5.40) 10^6/ul Hgb (12.0-16.0) g/dl Hct (35-47) % MCV (80-97) fL MCH (27-31) pg MCHC (31-36) g/dl RDW (10.5-15) % Plt Count (150-450) 10^3/ul MPV (7.4-10.4) um3 Neut % (Auto) (38-83) % Lymph % (Auto) (25-47) % Davidson % (Auto) (0-7) % Eos % (Auto) (0-6) % Baso % (Auto) (0-2) % Absolute Neuts (auto) (1.5-7.7) 10^3/ul Absolute Lymphs (auto) (1.0-4.8) 10^3/ul Absolute Monos (auto) (0-0.8) 10^3/ul Absolute Eos (auto) (0-0.6) 10^3/ul Absolute Basos (auto) (0-0.2) 10^3/ul Absolute Nucleated RBC 10^3/ul Nucleated RBC % INR (Anticoag Therapy) (0.77-1.02) APTT (26.0-36.3) seconds Sodium (135-145) mmol/L Potassium (3.5-5.0) mmol/L Chloride (101-111) mmol/L Carbon Dioxide (22-32) mmol/L Anion Gap (2-11) mmol/L BUN (6-24) mg/dL Creatinine (0.51-0.95) mg/dL Est GFR ( Amer) (>60) Est GFR (Non-Af Amer) (>60) BUN/Creatinine Ratio (8-20) Glucose (70-100) mg/dL Lactic Acid 1.5 (0.5-2.0) mmol/L Calcium (8.6-10.3) mg/dL Total Bilirubin (0.2-1.0) mg/dL AST (13-39) U/L ALT (7-52) U/L Alkaline Phosphatase (34-104) U/L Total Protein (6.4-8.9) g/dL Albumin (3.2-5.2) g/dL Globulin (2-4) g/dL Albumin/Globulin Ratio (1-3) Beta HCG, Quant mIU/mL Urine Color Yellow Urine Appearance Cloudy Urine pH 7.0 (5-9) Ur Specific [place] 1.017 (1.010-1.030) Urine Protein Negative (Negative) Urine Ketones Negative (Negative) Urine Blood 3+ A (Negative) Urine Nitrate Negative (Negative) Urine Bilirubin Negative (Negative) Urine Urobilinogen Negative (Negative) Ur Leukocyte Esterase Negative (Negative) Urine WBC (Auto) 1+(6-10/hpf) A (Absent) Urine RBC (Auto) 3+(>10/hpf) A (Absent) Ur Squamous Epith Cells Present A (Absent) Urine Bacteria Absent (Absent) Urine Glucose Negative (Negative) Result Diagrams: 05/13/18 11:12 05/13/18 11:12 Lab Statement: Any lab studies that have been ordered have been reviewed, and results considered in the medical decision making process. GIGU Course/Dx - Course Course Of Treatment: Labs obtained which show no evidence of severe bleeding. Likely this is secondary to her menses which was late onset this month. HCG negative. Patient remains on the Nexplanon. She appears well, vital signs are stable and denies any pain at this time. She will be discharged home with strict return precautions to follow up with [facility] and/or return if she develops abdominal pain, bleeding severe enough to soak through 1 pad per hour or other symptoms. UA obtained and negative. - Diagnoses Differential Diagnoses - Female: Other - Dysmenorrhea, menorrhagia, metromenorrhagia Provider Diagnoses: Menorrhagia Discharge - Sign-Out/Discharge Documenting (check all that apply): Patient Departure - Discharge Plan Condition: Stable Disposition: HOME Patient Education Materials: Menorrhagia (ED) Referrals: Suzi Hernandez MD [Primary Care Provider] - Additional Instructions: Please follow-up with [facility] on Wednesday or Wednesday If you're soaking through more than 1 pad per hour, return to the ED Continue your iron supplementation at this point at home Drink plenty of fluids including Gatorade - Billing Disposition and Condition Condition: STABLE Disposition: Home
== END | disposition home or self-care (01) ==
LOC: ED 09:57
DX: N92.0 Excessive and frequent menstruation with regular cycle (principal); R10.9 Unspecified abdominal pain; Z87.891 Personal history of nicotine dependence; Z88.0 Allergy status to penicillin
CPT/HCPCS: 36415; 80053; 81003; 81015; 83605; 84702; 85025; 85610; 85730; 87077; 87086; 99283

== ENCOUNTER 2018-05-16 09:16 | Emergency (ER) | payer OTHER ==
[2018-05-16 10:08] LABS: ABS Basophils 0 10^3/ul (0-0.2); ABS Eosinophils 0.2 10^3/ul (0-0.6); ABS Lymphocytes 1.8 10^3/ul (1.0-4.8); ABS Monocytes 0.5 10^3/ul (0-0.8); ABS Neutrophils 3.4 10^3/ul (1.5-7.7); ABS Nucleated RBC 0 10^3/ul; Eosinophil % 2.6 % (0-6); Hematocrit 35 % (35-47); Lymphocyte % 30.4 % (25-47); Mean Corpuscular HGB Conc 32 g/dl (31-36); Mean Corpuscular Hemoglobin 22 pg (27-31); Mean Corpuscular Volume 71 fL (80-97); Mean Platelet Volume 8.1 um3 (7.4-10.4); Nucleated Red Blood Cells % 0; Platelet Count 421 10^3/ul (150-450); Red Blood Count 4.95 10^6/ul (4.00-5.40); Red Cell Distribution Width 17 % (10.5-15); White Blood Count 5.9 10^3/ul (3.5-10.8)
[2018-05-16 10:14] LABS: INR 0.99 (0.77-1.02)
[2018-05-16 10:16] LABS: EGFR Non-African American 121.5 (>60)
--- NOTE | 2018-05-16 10:59 | ED ---
GI/ HPI - HPI Summary HPI Summary: This patient is a 22 year old F presenting to [facility] with a chief complaint of heavy vaginal bleeding since 5 days ago. Patient notes she has been spotting blood starting 2 weeks ago She reports that 5 days ago she woke up with cramping abdominal pain and heavy bleeding. Patient was seen at [facility] for similar symptoms 3 days ago on 05/13/18 and was discharged with f/u from OB. Since then, her bleeding lightened up but she woke up this morning to bleeding heavier than it was 5 days ago. She notes the blood soaked through 2 heavy pads since 06:00. The patient rates the pain 8/10 in severity. Symptoms aggravated by ambulation. Symptoms alleviated by nothing. Patient reports dizziness and lightheadedness. Patient denies vaginal discharge. Patient says she has not been sexually active since 3 weeks ago. Patient has been on the Nexplanon implant since 7-8 months ago and notes changes in the heaviness of her period since starting it. Patient previously had been on oral contraceptives. Patient notes that her period should have ended 2 weeks ago and she usually has regularly timed periods. - History of Current Complaint Chief Complaint: EDVaginalBleeding Time Seen by Provider: 05/16/18 10:01 Stated Complaint: HEAVY VAGINAL BLEEDING X5DAYS Hx Obtained From: Patient Hx Last Menstrual Period: 10/05/16 Onset/Duration: Started Days Ago - 5 days, Atraumatic, Still Present Timing: Intermittent, Lasting Days - 5 days Severity: Worse Since: Current Severity: Moderate Pain Intensity: 8 Location of Pain: Suprapubic Pain Characteristics: Cramping Associated Signs and Symptoms: Positive: Dizziness, Lightheadedness. Negative: Discharge Additional Signs & Symptoms: Positive: Vaginal Bleeding. Negative: Vaginal Discharge Aggravating Factor(s): Nothing Alleviating Factor(s): Nothing - Additional Pertinent History Primary Care Physician: [id number] - Allergy/Home Medications Allergies/Adverse Reactions: Allergies Allergy/AdvReac Type Severity Reaction Status Date / Time amoxicillin Allergy Unknown Verified 05/16/18 09:38 Reaction Details hydroxyzine [From Atarax] Allergy See Comment Verified 05/16/18 09:38 lactose Allergy Abdominal Verified 05/16/18 09:38 Pain lorazepam [From Ativan] Allergy Unknown Verified 05/16/18 09:38 Reaction Details Penicillins Allergy Unknown Verified 05/16/18 09:38 Reaction Details ziprasidone [From Geodon] Allergy See Comment Verified 05/16/18 09:38 wheat AdvReac Intermediate Vomiting Uncoded 05/16/18 09:38 fruit AdvReac Unknown Uncoded 05/16/18 09:38 Reaction Details PMH/Surg Hx/FS Hx/Imm Hx Endocrine/Hematology History: Denies: Hx Anticoagulant Therapy, Hx Diabetes, Hx Thyroid Disease Cardiovascular History: Reports: Other Cardiovascular Problems/Disorders - MURMUR Denies: Hx Hypertension Respiratory History: Reports: Hx Asthma Denies: Hx Chronic Obstructive Pulmonary Disease (COPD), Hx Lung Cancer, Hx Pneumonia, Hx Pulmonary Embolism, Other Respiratory Problems/Disorders GI History: Reports: Other GI Disorders - wheat allergy and lactose intolerance Denies: Hx Gall Bladder Disease, Hx Gastrointestinal Bleed, Hx Ulcer, Hx Urosepsis History: Reports: Other Problems/Disorders - hx multiple UTIs Denies: Hx Kidney Stones, Hx Renal Disease Neurological History: Reports: Hx Seizures Denies: Hx Dementia, Hx Migraine, Hx Transient Ischemic Attacks (TIA) Psychiatric History: Reports: Hx Anxiety, Hx Depression, Hx Inpatient Treatment - [facility], Hx Community Mental Health [facility]x - [facility], [facility], Other Psychiatric Issues/ Disorders - borderline personality, bipolar, PTSD Denies: Hx Attention Deficit Hyperactivity Disorder, Hx Eating Disorder, Hx Panic Disorder, Hx Post Traumatic Stress Disorder, Hx Schizophrenia, Hx Bipolar Disorder, Hx Suicide Attempt, Hx of Violent Episodes Against Others, Hx Substance Abuse - Surgical History Surgery Procedure, Year, and Place: none - Immunization History Date of Tetanus Vaccine: Unk Date of Influenza Vaccine: None Infectious Disease History: No Infectious Disease History: Denies: Hx Hepatitis, Hx Human Immunodeficiency Virus (HIV), Hx of Known/ Suspected MRSA, History Other Infectious Disease, Traveled Outside the [place] in Last 30 Days - Family History Known Family History: Positive: Unknown - Adopted, Other - Biological mother - EtOH and drug abuse Negative: Blood Disorder - Social History Alcohol Use: None Alcohol Amount: pt denies during Hx Substance Use: No Substance Use Type: Reports: None Substance Use Comment - Amount & Last Used: used in past, also ecstacy Hx Tobacco Use: Yes Smoking Status (MU): Former Smoker Type: Cigarettes Have You Smoked in the Last Year: No Review of Systems Negative: Fever, Chills Negative: Erythema Negative: Sore Throat Negative: Chest Pain Negative: Shortness Of Breath, Cough Positive: Abdominal Pain - suprapubic pain. Negative: Vomiting, Nausea Positive: pain - suprapubic pain, other - heavy vaginal bleeding. Negative: dysuria, discharge, hematuria Negative: Myalgia, Edema Negative: Rash Neurological: Other - dizziness, lightheadedness All Other Systems Reviewed And Are Negative: Yes Physical Exam - Summary Physical Exam Summary: Constitutional: Well-developed, Well-nourished, Alert. (-) Distressed Skin: Warm, Dry HENT: Normocephalic; Atraumatic Eyes: Conjunctiva normal Neck: Musculoskeletal ROM normal neck. (-) JVD, (-) Stridor, (-) Tracheal deviation Cardio: Rhythm regular, rate normal, Heart sounds normal; Intact distal pulses; The pedal pulses are 2+ and symmetric. Radial pulses are 2+ and symmetric. (-) Murmur Pulmonary/Chest wall: Effort normal. (-) Respiratory distress, (-) Wheezes, (-) Rales Abd: Soft, (-) Distension, (-) Guarding, (-) Rebound, suprapubic tenderness Musculoskeletal: (-) Edema Lymph: (-) Cervical adenopathy Neuro: Alert, Oriented x3 Psych: Mood and affect Normal Triage Information Reviewed: Yes Vital Signs On Initial Exam: Initial Vitals Temp Pulse Resp BP Pulse Ox 96.7 F 97 17 114/71 98 05/16/18 09:34 05/16/18 09:34 05/16/18 09:34 05/16/18 09:34 05/16/18 09:34 Vital Signs Reviewed: Yes Diagnostics - Vital Signs Vital Signs Temp Pulse Resp BP Pulse Ox 05/16/18 09:34 96.7 F 97 17 114/71 98 - Laboratory Lab Results: Lab Results 05/16/18 05/16/18 05/16/18 Range/Units 09:50 09:50 09:50 WBC 5.9 (3.5-10.8) 10^3/ul RBC 4.95 (4.00-5.40) 10^6/ul Hgb 11.0 L (12.0-16.0) g/dl Hct 35 (35-47) % MCV 71 L (80-97) fL MCH 22 L (27-31) pg MCHC 32 (31-36) g/dl RDW 17 H (10.5-15) % Plt Count 421 (150-450) 10^3/ul MPV 8.1 (7.4-10.4) um3 Neut % (Auto) 58.1 (38-83) % Lymph % (Auto) 30.4 (25-47) % [place] % (Auto) 8.1 H (0-7) % Eos % (Auto) 2.6 (0-6) % Baso % (Auto) 0.8 (0-2) % Absolute Neuts (auto) 3.4 (1.5-7.7) 10^3/ul Absolute Lymphs (auto) 1.8 (1.0-4.8) 10^3/ul Absolute Monos (auto) 0.5 (0-0.8) 10^3/ul Absolute Eos (auto) 0.2 (0-0.6) 10^3/ul Absolute Basos (auto) 0 (0-0.2) 10^3/ul Absolute Nucleated RBC 0 10^3/ul Nucleated RBC % 0 INR (Anticoag Therapy) 0.99 (0.77-1.02) APTT 29.5 (26.0-36.3) seconds Sodium 138 (135-145) mmol/L Potassium 4.0 (3.5-5.0) mmol/L Chloride 106 (101-111) mmol/L Carbon Dioxide 25 (22-32) mmol/L Anion Gap 7 (2-11) mmol/L BUN 9 (6-24) mg/dL Creatinine 0.62 (0.51-0.95) mg/dL Est GFR ( Amer) 147.0 (>60) Est GFR (Non-Af Amer) 121.5 (>60) BUN/Creatinine Ratio 14.5 (8-20) Glucose 98 (70-100) mg/dL Lactic Acid (0.5-2.0) mmol/L Calcium 9.2 (8.6-10.3) mg/dL Total Bilirubin 0.70 (0.2-1.0) mg/dL AST 11 L (13-39) U/L ALT 8 (7-52) U/L Alkaline Phosphatase 70 (34-104) U/L Total Protein 7.1 (6.4-8.9) g/dL Albumin 4.3 (3.2-5.2) g/dL Globulin 2.8 (2-4) g/dL Albumin/Globulin Ratio 1.5 (1-3) 05/16/18 Range/Units 09:50 WBC (3.5-10.8) 10^3/ul RBC (4.00-5.40) 10^6/ul Hgb (12.0-16.0) g/dl Hct (35-47) % MCV (80-97) fL MCH (27-31) pg MCHC (31-36) g/dl RDW (10.5-15) % Plt Count (150-450) 10^3/ul MPV (7.4-10.4) um3 Neut % (Auto) (38-83) % Lymph % (Auto) (25-47) % [place] % (Auto) (0-7) % Eos % (Auto) (0-6) % Baso % (Auto) (0-2) % Absolute Neuts (auto) (1.5-7.7) 10^3/ul Absolute Lymphs (auto) (1.0-4.8) 10^3/ul Absolute Monos (auto) (0-0.8) 10^3/ul Absolute Eos (auto) (0-0.6) 10^3/ul Absolute Basos (auto) (0-0.2) 10^3/ul Absolute Nucleated RBC 10^3/ul Nucleated RBC % INR (Anticoag Therapy) (0.77-1.02) APTT (26.0-36.3) seconds Sodium (135-145) mmol/L Potassium (3.5-5.0) mmol/L Chloride (101-111) mmol/L Carbon Dioxide (22-32) mmol/L Anion Gap (2-11) mmol/L BUN (6-24) mg/dL Creatinine (0.51-0.95) mg/dL Est GFR ( Amer) (>60) Est GFR (Non-Af Amer) (>60) BUN/Creatinine Ratio (8-20) Glucose (70-100) mg/dL Lactic Acid 0.5 (0.5-2.0) mmol/L Calcium (8.6-10.3) mg/dL Total Bilirubin (0.2-1.0) mg/dL AST (13-39) U/L ALT (7-52) U/L Alkaline Phosphatase (34-104) U/L Total Protein (6.4-8.9) g/dL Albumin (3.2-5.2) g/dL Globulin (2-4) g/dL Albumin/Globulin Ratio (1-3) Result Diagrams: 05/16/18 09:50 05/16/18 09:50 Lab Statement: Any lab studies that have been ordered have been reviewed, and results considered in the medical decision making process. Re-Evaluation - Re-Evaluation 1st re-eval Re-Evaluation Time: 11:19 Change: Unchanged Comment: Told patient no concern for acute abdomen or ovarian torsion. GIGU Course/Dx - Course Course Of Treatment: This patient is a 22 y/o F reporting cramping suprapubic pain and heavy vaginal bleeding since 5 days ago. Patient was seen at [facility] for similar symptoms 3 days ago on 05/13/18. She notes the blood soaked through 2 heavy pads since 06:00. Patient reports dizziness and lightheadedness. Patient has the Nexplanon implant and notes her periods are typically regular. Patient refused a pelvic exam. Test results with no significant abnormalities. No concern for acute abdomen or ovarian torsion. Patient will be discharged home with follow up from her OB in 2-3 days. The patient is agreeable with this plan. - Diagnoses Provider Diagnoses: Dysmenorrhea Discharge - Sign-Out/Discharge Documenting (check all that apply): Patient Departure - Discharge Plan Condition: Stable Disposition: HOME Patient Education Materials: Dysmenorrhea (ED) Referrals: Suzi Hernandez MD [Primary Care Provider] - Additional Instructions: Follow up with OB in 2-3 days. Return to the emergency department with any new or worsening symptoms. - Attestation Statements Document Initiated by Scribe: Yes Documenting Scribe: Jessica Saldaña Provider For Whom Scribe is Documenting (Include Credential): Kurt Day MD Scribe Attestation: Jessica Curran, scribed for Kurt Day MD on 05/16/18 at 1140.
[2018-05-16 12:10] VITALS: BP 120/69
[2018-05-16 12:52] LABS: Urine Appearance Turbid; Urine Blood 2+ (Negative); Urine Color Yellow; Urine Ketones Negative (Negative); Urine Protein Negative (Negative); Urine Red Blood Cell Absent (Absent); Urine Specific Gravity 1.017 (1.010-1.030); Urine Urobilinogen Negative (Negative); Urine White Blood Cell 3+(>20/hpf) (Absent)
== END 2018-05-16 12:12 | disposition home or self-care (01) ==
LOC: ED 09:16
DX: N94.6 Dysmenorrhea, unspecified (principal); Z96.89 Presence of other specified functional implants; Z87.891 Personal history of nicotine dependence; Z88.3 Allergy status to other anti-infective agents; Z88.0 Allergy status to penicillin
CPT/HCPCS: 36415; 80053; 81003; 81015; 83605; 85025; 85610; 85730; 87077; 87086; 87491; 87591; 99282

== ENCOUNTER 2018-08-11 14:59 | Emergency (ER) | payer OTHER ==
[2018-08-11] MEDS ORDERED: NS 0.9% 1000 ML* 1,000 ML IV ONE (15:23)
--- NOTE | 2018-08-11 15:23 | ED ---
Influenza-Like Illness - HPI Summary HPI Summary: This patient is a 23 year old F presenting to [facility] with a chief complaint of n/ v for the last 3 days. The patient rates the pain 5/10 in severity. Patient reports DE SOUZA, dry cough, nasal congestion, myalgia, palpitations, and chills. Patient denies sore throat, CP, ABD pain, neck pain, ad fever. Pt did not get a flu shot this year. She states there is a chance of . For the last week SOB and heart racing. She has no hx of DVT and is not on bc - History of Current Complaint Chief Complaint: EDFluSymptoms Time Seen by Provider: 08/11/18 15:12 Hx Obtained From: Patient Onset/Duration: Lasting Days - 3, Still Present Severity: Moderate Associated Signs & Symptoms: Myalgia, Cough, Nasal Congestion, Headache, Vomiting - Allergy/Home Medications Allergies/Adverse Reactions: Allergies Allergy/AdvReac Type Severity Reaction Status Date / Time amoxicillin Allergy Unknown Verified 08/11/18 15:04 Reaction Details hydroxyzine [From Atarax] Allergy See Comment Verified 08/11/18 15:04 lactose Allergy Abdominal Verified 08/11/18 15:04 Pain lorazepam [From Ativan] Allergy Unknown Verified 08/11/18 15:04 Reaction Details Penicillins Allergy Unknown Verified 08/11/18 15:04 Reaction Details ziprasidone [From Geodon] Allergy See Comment Verified 08/11/18 15:04 wheat AdvReac Intermediate Vomiting Uncoded 08/11/18 15:04 fruit AdvReac Unknown Uncoded 08/11/18 15:04 Reaction Details PMH/Surg Hx/FS Hx/Imm Hx Endocrine/Hematology History: Denies: Hx Anticoagulant Therapy, Hx Diabetes, Hx Thyroid Disease Cardiovascular History: Reports: Other Cardiovascular Problems/Disorders - MURMUR Denies: Hx Hypertension Respiratory History: Reports: Hx Asthma Denies: Hx Chronic Obstructive Pulmonary Disease (COPD), Hx Lung Cancer, Hx Pneumonia, Hx Pulmonary Embolism, Other Respiratory Problems/Disorders GI History: Reports: Other GI Disorders - wheat allergy and lactose intolerance Denies: Hx Gall Bladder Disease, Hx Gastrointestinal Bleed, Hx Ulcer, Hx Urosepsis History: Reports: Other Problems/Disorders - hx multiple UTIs Denies: Hx Kidney Stones, Hx Renal Disease Neurological History: Reports: Hx Seizures Denies: Hx Dementia, Hx Migraine, Hx Transient Ischemic Attacks (TIA) Psychiatric History: Reports: Hx Anxiety, Hx Depression, Hx Inpatient Treatment - [facility], Hx Community Mental Health Tx - [facility], [facility], Other Psychiatric Issues/ Disorders - borderline personality, bipolar, PTSD Denies: Hx Attention Deficit Hyperactivity Disorder, Hx Eating Disorder, Hx Panic Disorder, Hx Post Traumatic Stress Disorder, Hx Schizophrenia, Hx Bipolar Disorder, Hx Suicide Attempt, Hx of Violent Episodes Against Others, Hx Substance Abuse - Surgical History Surgery Procedure, Year, and Place: none - Immunization History Date of Tetanus Vaccine: Unk Date of Influenza Vaccine: None Infectious Disease History: No Infectious Disease History: Denies: Hx Hepatitis, Hx Human Immunodeficiency Virus (HIV), Hx of Known/ Suspected MRSA, History Other Infectious Disease, Traveled Outside the [place] in Last 30 Days - Family History Known Family History: Positive: None, Unknown - Adopted, Other - Biological mother - EtOH and drug abuse Negative: Blood Disorder - Social History Alcohol Use: None Alcohol Amount: pt denies during Hx Substance Use: No Substance Use Type: Reports: None Substance Use Comment - Amount & Last Used: used in past, also ecstacy Hx Tobacco Use: Yes Smoking Status (MU): Former Smoker Type: Cigarettes Have You Smoked in the Last Year: No Review of Systems Positive: Chills Positive: Other - sinus congestion . Negative: Sore Throat Positive: Palpitations. Negative: Chest Pain Positive: Shortness Of Breath, Cough Positive: Vomiting, Nausea. Negative: Abdominal Pain Musculoskeletal: Negative - neck pain Positive: Myalgia Positive: Headache All Other Systems Reviewed And Are Negative: Yes Physical Exam - Summary Physical Exam Summary: GENERAL: Patient is a well-developed and F who is lying comfortable in the stretcher. Patient is not in any acute respiratory distress. HEAD AND FACE: Normocephalic EYES: PERRLA, EOMI x 2. EARS: Hearing grossly intact. MOUTH: Oropharynx within normal limits. NECK: Supple, trachea is midline, no adenopathy, no JVD, no carotid bruit. CHEST: Symmetric, no tenderness at palpation LUNGS: Clear to auscultation bilaterally. No wheezing or crackles. CVS: tachycardic. S1 and S2 present, no murmurs or gallops appreciated. ABDOMEN: Soft, non-tender. Bowel sounds are normal. No abdominal abnormal pulsations. EXTREMITIES: Full ROM in all major joints, no edema, no cyanosis or clubbing. NEURO: Alert and oriented x 3. No acute neurological deficits. Speech is normal and follows commands. SKIN: Dry and warm Triage Information Reviewed: Yes Vital Signs On Initial Exam: Initial Vitals Temp Pulse Resp BP Pulse Ox 96.8 F 136 17 118/69 97 08/11/18 15:02 08/11/18 15:02 08/11/18 15:02 08/11/18 15:02 08/11/18 15:02 Vital Signs Reviewed: Yes Diagnostics - Vital Signs Vital Signs Temp Pulse Resp BP Pulse Ox 08/11/18 15:02 96.8 F 136 17 118/69 97 - Laboratory Result Diagrams: 08/11/18 15:29 08/11/18 15:29 Lab Statement: Any lab studies that have been ordered have been reviewed, and results considered in the medical decision making process. - Radiology CXR Radiology Interpretation Completed By: ED Physician, Radiologist Summary of Radiographic Findings: no active disease seen. Pending official report. Official report: No evidence for pneumonia. Negative exam. Dr. Lomax has reviewed this report. - EKG 1509 Cardiac Rate: Tachycardia EKG Rhythm: Sinus Tachycardia - at 104 BPM Summary of EKG Findings: artifact Re-Evaluation - Re-Evaluation First Eval Re-Evaluation Time: 16:58 Change: Unchanged Second Eval Re-Evaluation Time: 17:56 Change: Improved Flu Symptom Course/Dx - Course Assessment/Plan: This patient is a 23 year old F presenting to [facility] with a chief complaint of n/v for the last 3 days. An EKG reveals 104 tachy artifact, 1509. CXR reveals, no active disease seen. Pending official report Official report: #. No evidence for pneumonia. #. Negative exam. When the patient was asked to provide a urine sample she informed me that she currently has a UTI. The patient was seen on the 03 of August and was discharged without an antibiotic. On chart inspection her UA culture showed saprophyticus that is penicillin sensitive. She will be given macrobid. bloodwork obtained. Pt was negative for influenza, strep, and mono. In the ED course the patient was given IV fluids and macrodantin. Dx viral syndrome and UTI. Patient will be discharged with prescription for macrobid and follow up from PCP. The patient is agreeable with this plan. - Diagnoses Provider Diagnoses: UTI (urinary tract infection), Viral syndrome Discharge - Sign-Out/Discharge Documenting (check all that apply): Patient Departure - Discharge Plan Condition: Stable Disposition: HOME Prescriptions: Nitrofurantoin Monohyd/M-Cryst [Macrobid 100 mg Capsule] 100 mg PO BID #14 cap Patient Education Materials: Urinary Tract Infection in Women (ED), Viral Syndrome (ED) Referrals: Suzi Hernandez MD [Primary Care Provider] - Additional Instructions: Follow up with your primary care physician in 1-3 days. RETURN TO THE EMERGENCY DEPARTMENT FOR CHANGING OR WORSENING SYMPTOMS. - Billing Disposition and Condition Condition: STABLE Disposition: Home - Attestation Statements Document Initiated by Scribe: Yes Documenting Scribe: Carlos A Galaviz Provider For Whom Megan is Documenting (Include Credential): Brando Lomax MD Scribe Attestation: Carlos A Curran , scribed for Brando Lomax MD on 08/11/18 at 1841. Scribe Documentation Reviewed: Yes Provider Attestation: The documentation as recorded by the Carlos A dudley accurately reflects the service I personally performed and the decisions made by , Brando Lomax MD Status of Scribe Document: Viewed
[2018-08-11 15:43] LABS: ABS Basophils 0 10^3/ul (0-0.2); ABS Eosinophils 0.1 10^3/ul (0-0.6); ABS Lymphocytes 1.2 10^3/ul (1.0-4.8); ABS Monocytes 0.5 10^3/ul (0-0.8); ABS Neutrophils 4.1 10^3/ul (1.5-7.7); ABS Nucleated RBC 0 10^3/ul; Eosinophil % 1.7 %; Hematocrit 37 % (35-47); Hemoglobin 11.7 g/dl (12.0-16.0); Lymphocyte % 19.8 %; Mean Corpuscular HGB Conc 32 g/dl (31-36); Mean Corpuscular Hemoglobin 23 pg (27-31); Mean Corpuscular Volume 71 fL (80-97); Nucleated Red Blood Cells % 0.1; Platelet Count 375 10^3/ul (150-450); Red Blood Count 5.18 10^6/ul (4.00-5.40); Red Cell Distribution Width 18 % (10.5-15)
[2018-08-11 15:53] LABS: INR 1.02 (0.77-1.02)
[2018-08-11 16:08] LABS: EGFR Non-African American 110.1 (>60)
[2018-08-11] MEDS ORDERED: Nitrofurantoin Macrocrystals* 100 MG CAP PO ONE (16:50)
[2018-08-11] MEDS ORDERED: Ketorolac INJ* 30 MG/ML 1 ML VIAL IV PUSH ONE (16:59)
[2018-08-11] MEDS ORDERED: Ketorolac INJ* 30 MG/ML 1 ML VIAL ONE (17:00)
[2018-08-11 17:51] VITALS: BP 118/64
== END 2018-08-11 17:52 | disposition home or self-care (01) ==
LOC: ED 14:59
DX: N39.0 Urinary tract infection, site not specified (principal); B34.9 Viral infection, unspecified; Z87.891 Personal history of nicotine dependence; R00.0 Tachycardia, unspecified; F32.9 Major depressive disorder, single episode, unspecified; F41.9 Anxiety disorder, unspecified; B96.89 Other specified bacterial agents as the cause of diseases classified elsewhere
CPT/HCPCS: 36415; 71045; 80053; 83605; 83735; 84436; 84443; 84484; 84702; 85025; 85379; 85610; 85730; 86308; 87651; 93005; 96361; 96374; 99282; A9270-GY; J1885

== ENCOUNTER 2018-08-27 20:32 | Emergency (ER) | payer OTHER ==
[2018-08-27 21:04] LABS: ABS Basophils 0.1 10^3/ul (0-0.2); ABS Eosinophils 0.2 10^3/ul (0-0.6); ABS Monocytes 0.8 10^3/ul (0-0.8); ABS Neutrophils 5.1 10^3/ul (1.5-7.7); ABS Nucleated RBC 0 10^3/ul; Eosinophil % 2.1 %; Hematocrit 35 % (35-47); Hemoglobin 11.2 g/dl (12.0-16.0); Lymphocyte % 32.6 %; Mean Corpuscular HGB Conc 32 g/dl (31-36); Mean Corpuscular Hemoglobin 23 pg (27-31); Mean Corpuscular Volume 71 fL (80-97); Mean Platelet Volume 8.9 fL (7.4-10.4); Nucleated Red Blood Cells % 0; Platelet Count 439 10^3/ul (150-450); Red Blood Count 4.94 10^6/ul (4.00-5.40); Red Cell Distribution Width 18 % (10.5-15); White Blood Count 9.1 10^3/ul (3.5-10.8)
[2018-08-27 21:20] LABS: EGFR Non-African American 110.1 (>60)
--- NOTE | 2018-08-27 21:35 | ED ---
Asthma - HPI Summary HPI Summary: The patient is a 23 y/o F presenting to [facility] with a chief complaint of chest tightness with associated SOB starting this morning at 09:00. She stood up from sitting down when she had sudden onset chest tightness and became lightheaded. She didn't want to use her inhaler that is prescribed for her asthma because she wanted to try to walk it off. The pain continued so she did use her inhaler , which helped for a few minutes. She is still having chest tightness now, rated 6/10 in severity. She denies fever and cough. She has hx of seizures but does not take medications. Nonsmoker. - History of Current Complaint Chief Complaint: EDShortnessOfBreath Stated Complaint: CHEST DISCOMFORT Time Seen by Provider: 08/27/18 21:23 Hx Obtained From: Patient Hx Last Menstrual Period: 10/05/16 Onset/Duration: Sudden Onset, Lasting Hours - since 0900 this morning, Still Present Timing: Hours Initial Severity: Moderate Current Severity: Moderate Pain Intensity: 6 Pain Scale Used: 0-10 Numeric Location/Character: Other - chest tightness, SOB, lightheadedness Aggravating Symptoms: Nothing Alleviating Symptoms: Inhalers/Nebulizers - for a few minutes Associated Signs and Symptoms: Positive: Shortness of Breath, Other - POSITIVE: lightheadedness; NEGATIVE: fever, cough - Allergy/Home Medications Allergies/Adverse Reactions: Allergies Allergy/AdvReac Type Severity Reaction Status Date / Time amoxicillin Allergy Unknown Verified 08/27/18 20:38 Reaction Details hydroxyzine [From Atarax] Allergy See Comment Verified 08/27/18 20:38 lactose Allergy Abdominal Verified 08/27/18 20:38 Pain lorazepam [From Ativan] Allergy Unknown Verified 08/27/18 20:38 Reaction Details Penicillins Allergy Unknown Verified 08/27/18 20:38 Reaction Details pineapple Allergy Hives Verified 08/27/18 21:32 ziprasidone [From Geodon] Allergy See Comment Verified 08/27/18 20:38 wheat AdvReac Intermediate Vomiting Uncoded 08/27/18 20:38 PMH/Surg Hx/FS Hx/Imm Hx Endocrine/Hematology History: Denies: Hx Anticoagulant Therapy, Hx Diabetes, Hx Thyroid Disease Cardiovascular History: Reports: Other Cardiovascular Problems/Disorders - MURMUR Denies: Hx Hypertension Respiratory History: Reports: Hx Asthma Denies: Hx Chronic Obstructive Pulmonary Disease (COPD), Hx Lung Cancer, Hx Pneumonia, Hx Pulmonary Embolism, Other Respiratory Problems/Disorders GI History: Reports: Other GI Disorders - wheat allergy and lactose intolerance Denies: Hx Gall Bladder Disease, Hx Gastrointestinal Bleed, Hx Ulcer, Hx Urosepsis History: Reports: Other Problems/Disorders - hx multiple UTIs Denies: Hx Kidney Stones, Hx Renal Disease Neurological History: Reports: Hx Seizures Denies: Hx Dementia, Hx Migraine, Hx Transient Ischemic Attacks (TIA) Psychiatric History: Reports: Hx Anxiety, Hx Depression, Hx Inpatient Treatment - [facility], Hx [facility], [facility], Other Psychiatric Issues/ Disorders - borderline personality, bipolar, PTSD Denies: Hx Attention Deficit Hyperactivity Disorder, Hx Eating Disorder, Hx Panic Disorder, Hx Post Traumatic Stress Disorder, Hx Schizophrenia, Hx Bipolar Disorder, Hx Suicide Attempt, Hx of Violent Episodes Against Others, Hx Substance Abuse - Surgical History Surgery Procedure, Year, and Place: none - Immunization History Date of Tetanus Vaccine: Unk Date of Influenza Vaccine: None Infectious Disease History: No Infectious Disease History: Denies: Hx Hepatitis, Hx Human Immunodeficiency Virus (HIV), Hx of Known/ Suspected MRSA, History Other Infectious Disease, Traveled Outside the [place] in Last 30 Days - Family History Known Family History: Positive: Unknown - Adopted, Other - Biological mother - EtOH and drug abuse Negative: Blood Disorder - Social History Alcohol Use: None Alcohol Amount: pt denies during Hx Substance Use: No Substance Use Type: Reports: None Substance Use Comment - Amount & Last Used: used in past, also ecstacy Hx Tobacco Use: Yes Smoking Status (MU): Former Smoker Type: Cigarettes Have You Smoked in the Last Year: No Review of Systems Negative: Fever Positive: Other - chest tightness Positive: Shortness Of Breath - due to chest tightness. Negative: Cough Neurological: Other - lightheaded All Other Systems Reviewed And Are Negative: Yes Physical Exam - Summary Physical Exam Summary: Appearance: Well-appearing, Well-nourished, lying in bed comfortable Skin: Warm, dry, no obvious rash Eyes: sclera anicteric, no conjunctival pallor ENT: mucous membranes moist Neck: deferred Respiratory: No signs of respiratory distress Cardiovascular: Appears well perfused, pulses are nml Abdomen: deferred Musculoskeletal: Moving all 4 extremities without obvious discomfort Neurological: Awake and alert, mentation is normal, speech is fluent and appropriate Psychiatric: affect is normal, does not appear anxious or depressed Triage Information Reviewed: Yes Vital Signs On Initial Exam: Initial Vitals Temp Pulse Resp BP Pulse Ox 97.3 F 113 18 111/61 97 08/27/18 20:34 08/27/18 20:34 08/27/18 20:34 08/27/18 20:34 08/27/18 20:34 Vital Signs Reviewed: Yes Diagnostics - Vital Signs Vital Signs Temp Pulse Resp BP Pulse Ox 08/27/18 20:34 97.3 F 113 18 111/61 97 - Laboratory Lab Results: Lab Results 08/27/18 08/27/18 Range/Units 20:55 20:55 WBC 9.1 (3.5-10.8) 10^3/ul RBC 4.94 (4.00-5.40) 10^6/ul Hgb 11.2 L (12.0-16.0) g/dl Hct 35 (35-47) % MCV 71 L (80-97) fL MCH 23 L (27-31) pg MCHC 32 (31-36) g/dl RDW 18 H (10.5-15) % Plt Count 439 (150-450) 10^3/ul MPV 8.9 (7.4-10.4) fL Neut % (Auto) 56.2 % Lymph % (Auto) 32.6 % Boyle % (Auto) 8.4 % Eos % (Auto) 2.1 % Baso % (Auto) 0.7 % Absolute Neuts (auto) 5.1 (1.5-7.7) 10^3/ul Absolute Lymphs (auto) 3.0 (1.0-4.8) 10^3/ul Absolute Monos (auto) 0.8 (0-0.8) 10^3/ul Absolute Eos (auto) 0.2 (0-0.6) 10^3/ul Absolute Basos (auto) 0.1 (0-0.2) 10^3/ul Absolute Nucleated RBC 0 10^3/ul Nucleated RBC % 0 Sodium 140 (135-145) mmol/L Potassium 3.9 (3.5-5.0) mmol/L Chloride 107 (101-111) mmol/L Carbon Dioxide 26 (22-32) mmol/L Anion Gap 7 (2-11) mmol/L BUN 10 (6-24) mg/dL Creatinine 0.67 (0.51-0.95) mg/dL Est GFR ( Amer) 133.2 (>60) Est GFR (Non-Af Amer) 110.1 (>60) BUN/Creatinine Ratio 14.9 (8-20) Glucose 114 H (70-100) mg/dL Calcium 9.7 (8.6-10.3) mg/dL Total Bilirubin 0.60 (0.2-1.0) mg/dL AST 14 (13-39) U/L ALT 10 (7-52) U/L Alkaline Phosphatase 72 (34-104) U/L C-Reactive Protein 5.47 (<8.01) mg/L Total Protein 7.2 (6.4-8.9) g/dL Albumin 4.4 (3.2-5.2) g/dL Globulin 2.8 (2-4) g/dL Albumin/Globulin Ratio 1.6 (1-3) Lipase 25 (11.0-82.0) U/L Beta HCG, Quant < 0.60 mIU/mL Result Diagrams: 08/27/18 20:55 08/27/18 20:55 Lab Statement: Any lab studies that have been ordered have been reviewed, and results considered in the medical decision making process. - Radiology CXR Radiology Interpretation Completed By: Radiologist Summary of Radiographic Findings: No acute disease. ED physician has reviewed this report. Re-Evaluation - Re-Evaluation Second Eval Re-Evaluation Time: 23:00 Change: Unchanged Comment: I spoke with the pt about negative CXR results and discharge home. Asthma Course/Dx - Course Course Of Treatment: The patient is a 23 y/o F presenting with a chief complaint of sudden onset chest tightness with associated SOB after standing up and becoming lightheaded. She used her inhaler that is prescribed for asthma, which relieved the tightness for a few minutes. Hx of seizures without medication. Physical exam is normal. In the ED course, bloodwork is negative and urine reveals slightly elevated WBCs and RBCs. CXR reveals no acute disease. Patient is diagnosed with asthma. She will be discharged home with prescription for prednisone and follow up with PCP. She agrees with this plant and understands the need for return to the ED if symptoms worsen. - Diagnoses Provider Diagnoses: Asthma Discharge - Sign-Out/Discharge Documenting (check all that apply): Patient Departure - Patient will be discharged home. - Discharge Plan Condition: Good Disposition: HOME Prescriptions: predniSONE TAB* [Deltasone 20 MG TAB*] 40 mg PO DAILY 4 Days #8 tab Patient Education Materials: Asthma (ED) Referrals: Suzi Hernandez MD [Primary Care Provider] - 2 Days (if not improving) - Billing Disposition and Condition Condition: GOOD Disposition: Home - Attestation Statements Document Initiated by Megan: Yes Documenting Scribe: Sandy Mancuso Provider For Whom Megan is Documenting (Include Credential): Dr. Frantz Hickman MD Scribe Attestation: Sandy Curran scribed for Dr. Frantz Hickman MD on 08/28/18 at 0645. Scribe Documentation Reviewed: Yes Provider Attestation: The documentation as recorded by the Sandy dudley accurately reflects the service I personally performed and the decisions made by me, Dr. Frantz Hickman MD Status of Scribe Document: Viewed
[2018-08-27 22:52] LABS: Urine Appearance Cloudy; Urine Blood Negative (Negative); Urine Color Yellow; Urine Ketones Negative (Negative); Urine Protein Negative (Negative); Urine Red Blood Cell 1+(3-5/hpf) (Absent); Urine Specific Gravity 1.023 (1.010-1.030); Urine Urobilinogen Negative (Negative); Urine White Blood Cell 3+(>20/hpf) (Absent)
[2018-08-27] MEDS ORDERED: predniSONE TAB* 20 MG PO ONE (23:03)
[2018-08-27 23:12] VITALS: BP 118/83
== END 2018-08-27 23:18 | disposition home or self-care (01) ==
LOC: ED 20:32
DX: J45.909 Unspecified asthma, uncomplicated (principal); R42 Dizziness and giddiness; Z88.0 Allergy status to penicillin; Z88.8 Allergy status to other drugs, medicaments and biological substances; Z87.891 Personal history of nicotine dependence
CPT/HCPCS: 36415; 71046; 80053; 81003; 81015; 83690; 84702; 85025; 85379; 86140; 87086; 99283; J7512

== ENCOUNTER 2018-09-15 12:24 | Inpatient (IN) | payer OTHER ==
[2018-09-15] MEDS ORDERED: Nicotine Inhaler* 10 MG AMP INH PRN (12:48)
[2018-09-15 13:24] LABS: ABS Basophils 0.1 10^3/ul (0-0.2); ABS Eosinophils 0.1 10^3/ul (0-0.6); ABS Lymphocytes 1.5 10^3/ul (1.0-4.8); ABS Monocytes 0.5 10^3/ul (0-0.8); ABS Neutrophils 3.5 10^3/ul (1.5-7.7); ABS Nucleated RBC 0 10^3/ul; Eosinophil % 1.2 %; Hematocrit 35 % (35-47); Hemoglobin 10.9 g/dl (12.0-16.0); Lymphocyte % 26.7 %; Mean Corpuscular HGB Conc 31 g/dl (31-36); Mean Corpuscular Hemoglobin 23 pg (27-31); Mean Corpuscular Volume 72 fL (80-97); Mean Platelet Volume 9.1 fL (7.4-10.4); Nucleated Red Blood Cells % 0.1; Platelet Count 339 10^3/ul (150-450); Red Blood Count 4.83 10^6/ul (4.00-5.40); Red Cell Distribution Width 18 % (10.5-15); White Blood Count 5.6 10^3/ul (3.5-10.8)
--- NOTE | 2018-09-15 13:24 | ED ---
Psychiatric Complaint - HPI Summary HPI Summary: A 23 y/o female presents to [facility] with a chief complaint of depression since . The patient also has not eaten or drank much since 09/12/18. Per triage note, she was sent from a therapist for a MHE after expressing SI/HI. 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 However the patient reports overdosing on Effexor with MDMA 2.5 months [employer]. She has a Hx of asthma, epilepsy and anemia. She denies CP, SOB, dizziness, dysuria, hematuria, vomiting and headache. She admits to some abdominal cramps and nausea. Her LNMP started 09/13/18. She has been 5 times with 2 children and 3 miscarriages. Ab3. She has a SHx of a . She claims that she gave full custody of her 2 children to their father on 08/05/18. She also reports that she has not been taking anything for her depression because of her OD. She lives by herself in an apartment. - History Of Current Complaint Chief Complaint: EDMentalHealth Time Seen by Provider: 09/15/18 12:58 Hx Obtained From: Patient Hx Last Menstrual Period: 09/13/18 Onset/Duration: Sudden Onset, Lasting Days, Still Present Timing: Days Severity Initially: Moderate Severity Currently: Moderate Character: Depressed Alleviating Factor(s): Nothing Associated Signs And Symptoms: Positive: Appetite Change Related History: Positive For: Prior Psychiatric Issues, Drug Abuse Counseling Has Suicidal: Reports: Thoughts Has Homicidal: Reports: Thoughts - Allergies/Home Medications Allergies/Adverse Reactions: Allergies Allergy/AdvReac Type Severity Reaction Status Date / Time amoxicillin Allergy Unknown Verified 08/27/18 20:38 Reaction Details hydroxyzine [From Atarax] Allergy See Comment Verified 08/27/18 20:38 lactose Allergy Abdominal Verified 08/27/18 20:38 Pain lorazepam [From Ativan] Allergy Unknown Verified 08/27/18 20:38 Reaction Details Penicillins Allergy Unknown Verified 08/27/18 20:38 Reaction Details pineapple Allergy Hives Verified 08/27/18 21:32 ziprasidone [From Geodon] Allergy See Comment Verified 08/27/18 20:38 wheat AdvReac Intermediate Vomiting Uncoded 08/27/18 20:38 Home Medications: Home Medications Norethindrone [Deblitane] 0.35 mg PO DAILY 09/15/18 [History Confirmed 09/15/18] PMH/Surg Hx/FS Hx/Imm Hx Endocrine/Hematology History: Denies: Hx Anticoagulant Therapy, Hx Diabetes, Hx Thyroid Disease Cardiovascular History: Reports: Other Cardiovascular Problems/Disorders - MURMUR Denies: Hx Hypertension Respiratory History: Reports: Hx Asthma Denies: Hx Chronic Obstructive Pulmonary Disease (COPD), Hx Lung Cancer, Hx Pneumonia, Hx Pulmonary Embolism, Other Respiratory Problems/Disorders GI History: Reports: Other GI Disorders - wheat allergy and lactose intolerance Denies: Hx Gall Bladder Disease, Hx Gastrointestinal Bleed, Hx Ulcer, Hx Urosepsis History: Reports: Other Problems/Disorders - hx multiple UTIs Denies: Hx Kidney Stones, Hx Renal Disease Neurological History: Reports: Hx Seizures, Other Neuro Impairments/Disorders - positive: epilepsy Denies: Hx Dementia, Hx Migraine, Hx Transient Ischemic Attacks (TIA) Psychiatric History: Reports: Hx Anxiety, Hx Depression, Hx Inpatient Treatment - [facility], Hx Community Mental Health Tx - [facility], [facility], Other Psychiatric Issues/ Disorders - borderline personality, bipolar, PTSD Denies: Hx Attention Deficit Hyperactivity Disorder, Hx Eating Disorder, Hx Panic Disorder, Hx Post Traumatic Stress Disorder, Hx Schizophrenia, Hx Bipolar Disorder, Hx Suicide Attempt, Hx of Violent Episodes Against Others, Hx Substance Abuse - Surgical History Surgery Procedure, Year, and Place: 07/31/17 - Immunization History Date of Tetanus Vaccine: Unk Date of Influenza Vaccine: None Infectious Disease History: No Infectious Disease History: Denies: Hx Hepatitis, Hx Human Immunodeficiency Virus (HIV), Hx of Known/ Suspected MRSA, History Other Infectious Disease, Traveled Outside the [place] in Last 30 Days - Family History Known Family History: Positive: Unknown - Adopted, Other - Biological mother - EtOH and drug abuse Negative: Blood Disorder - Social History Lives: Alone Alcohol Use: None Alcohol Amount: pt denies during Hx Substance Use: No Substance Use Type: Reports: None Substance Use Comment - Amount & Last Used: used in past, also ecstacy Hx Tobacco Use: Yes Smoking Status (MU): Former Smoker Type: Cigarettes Have You Smoked in the Last Year: No Review of Systems Negative: Fever Negative: Chest Pain Negative: Shortness Of Breath Positive: Abdominal Pain - cramps, Nausea. Negative: Vomiting Negative: dysuria, hematuria Neurological: Negative - dizziness Negative: Headache Positive: Depressed, Other - positive: SI/HI, lack of appetite. All Other Systems Reviewed And Are Negative: Yes Physical Exam - Summary Physical Exam Summary: Appearance: Well-appearing, no pain distress, well-nourished Skin: Warm, color reflects adequate perfusion, dry Head: Normal Head/Face inspection, atraumatic Eyes: Conjunctiva clear ENT: Normal inspection Neck: Supple, no nodes, no JVD Respiratory: Lungs clear, normal breath sounds, no respiratory distress Cardio: RRR, No murmur, pulses normal, brisk capillary refill Abdomen: Soft, nontender Bowel sounds: Present Musculoskeletal: Strength Intact/ROM intact, no calf tenderness, no edema. Psychological: depressed affect Neuro: Alert, muscle tone normal, no focal deficit Triage Information Reviewed: Yes Vital Signs On Initial Exam: Initial Vitals Temp Pulse Resp BP Pulse Ox 98.9 F 100 18 142/92 98 09/15/18 12:27 09/15/18 12:27 09/15/18 12:27 09/15/18 12:27 09/15/18 12:27 Vital Signs Reviewed: Yes Diagnostics - Vital Signs Vital Signs Temp Pulse Resp BP Pulse Ox 09/15/18 12:27 98.9 F 100 18 142/92 98 - Laboratory Result Diagrams: 09/15/18 13:12 09/15/18 13:13 Lab Statement: Any lab studies that have been ordered have been reviewed, and results considered in the medical decision making process. Course/Dx - Course Course Of Treatment: A 23 y/o female presents to [facility] with a chief complaint of depression since 09/12/18. The patient has been medically cleared for MHE. The patient will be a voluntary admit to Dr. Mcgarry, Dx: unspecified depression. - Differential Dx/Clinical Impression Provider Diagnosis: Depression - Physician Notifications Discussed Care Of Patient With: Reynaldo Mcgarry Time Discussed With Above Provider: 15:17 Instructed by Provider To: Other - Per senior architectural designer, the patiet will be a voluntary admit. Per Dr. Mcgarry Dx: unspecfied depression Discharge - Sign-Out/Discharge Documenting (check all that apply): Patient Departure - admit - Discharge Plan Condition: Fair Disposition: PSYCHIATRIC FACILITY-[facility] [place] Referrals: No Primary Care Phys,NOPCP [Primary Care Provider] - - Attestation Statements Document Initiated by Scribe: Yes Documenting Scribe: Amaury Frankel Provider For Whom Scribe is Documenting (Include Credential): Dr. Josefina Grier MD Scribe Attestation: IAmaury, scribed for Dr. Josefina Grier MD on 09/15/18 at 1519. Status of Scribe Document: Ready
[2018-09-15] MEDS ORDERED: Mouth Piece, Nicotine* 1 EACH CARTRIDGE INH PRN (13:38)
[2018-09-15 13:45] LABS: ALT 7 U/L (7-52); AST 11 U/L (13-39); Albumin 4.2 g/dL (3.2-5.2); Albumin/Globulin Ratio 1.7 (1-3); Alkaline Phosphatase 62 U/L (34-104); Anion Gap 6 mmol/L (2-11); BUN/Creatinine Ratio 14.1 (8-20); Blood Urea Nitrogen 9 mg/dL (6-24); CO2 Carbon Dioxide 27 mmol/L (22-32); Calcium 9.2 mg/dL (8.6-10.3); Chloride 105 mmol/L (101-111); Globulin 2.5 g/dL (2-4); Glucose 102 mg/dL (70-100); Sodium 138 mmol/L (135-145); Total Protein 6.7 g/dL (6.4-8.9)
[2018-09-15 13:47] LABS: Acetaminophen < 15 mcg/mL; Alcohol < 10 mg/dL (<10); Salicylate < 2.50 mg/dL (<30)
[2018-09-15 14:00] LABS: TSH (Thyroid Stimulating Horm) 1.06 mcIU/mL (0.34-5.60)
[2018-09-15 14:13] LABS: Urine Appearance Cloudy; Urine Bacteria Absent (Absent); Urine Bilirubin Negative (Negative); Urine Blood 1+ (Negative); Urine Color Yellow; Urine Glucose Negative (Negative); Urine Ketones Negative (Negative); Urine Nitrite Negative (Negative); Urine Protein Negative (Negative); Urine Red Blood Cell 2+(6-10/hpf) (Absent); Urine Specific Gravity 1.017 (1.010-1.030); Urine Urobilinogen Negative (Negative); Urine White Blood Cell 1+(6-10/hpf) (Absent)
[2018-09-15 14:48] LABS: Barbiturates Urine Screen None Detected (None Detect); Benzodiazepine Urine Screen None Detected (None Detect); Urine Cannabinoids Screen None Detected (None Detect)
[2018-09-15] MEDS ORDERED: Al Hydrox/Mg Hydrox/Simet LIQ* 30 ML UDC PO PRN (21:01)
[2018-09-15] MEDS ORDERED: Mouth Piece, Nicotine* 1 EACH CARTRIDGE INH SCH (21:01)
[2018-09-15] MEDS: Nicotine GUM* 2 MG PO PRN (21:09)
[2018-09-15] MEDS: Acetaminophen TAB* 325 MG PO PRN (21:09)
[2018-09-16 07:33] LABS: HDL Cholesterol 38.3 mg/dL
[2018-09-16] MEDS: NORETHINDRONE 0.35 MG PO SCH (08:42)
[2018-09-16] MEDS: Albuterol HFA INHALER* 8 gm MDI INH PRN (09:00)
[2018-09-16] MEDS: Vitamin THERAPEUTIC TAB PO SCH (09:36)
[2018-09-16] MEDS ORDERED: diPHENhydraMINE PO* 50 MG PO ONE (11:02)
[2018-09-16] MEDS ORDERED: Hydrocortisone 1% CREAM* 30 GM TUBE TOPICAL PRN (11:08)
[2018-09-16] MEDS: Nicotine PATCH 14 MG/24 HR* PATCH TRANSDERM SCH (12:22)
[2018-09-16] MEDS: Nicotine Patch Removal NOTE FOLLOW UP SCH ×2 (14:41→22:23)
[2018-09-16] MEDS: Acetaminophen TAB* 325 MG PO PRN (16:01)
--- NOTE | 2018-09-16 18:53 | HP ---
HISTORY AND PHYSICAL: DATE OF ADMISSION: 09/15/18 PROVIDER: Laura Apple NP, in Psychiatry. SUPERVISING PHYSICIAN: Reynaldo Mcgarry MD * (DICTATED BY LARUA APPLE NP ) JUSTIFICATION FOR ADMISSION: The patient is in need of 24-hour supervision and care secondary to suicidal ideation. CHIEF COMPLAINT: "I couldn't accept the breakup. I couldn't sleep. I couldn' t eat. I was a kind of your chainstitch hemmer child for depression." HISTORY OF PRESENT ILLNESS: The patient is a 23-year-old single white female who has 2 children whose custody she has given up and is living alone in an apartment. She arrives brought in by car referred by her psychotherapist and her therapist at [facility] and is here on a voluntary status following a "breakup" with her friend who she wanted to be more than her friend but also said it does not need to be "romantic." The story of Kiana's admission is somewhat Byzantine. She states that she had an old friend from high school who she met and they were both going through custody problems and recent relapses and they both had just gotten out of a 3-year long-term relationship. She states they tried not to, but they fell in love, and one night they both got drunk and he "broke up" with her stating that he cannot be just her friend; he feels like it has to be romantic. At that point, she got angry and sad and could not understand why he could not just be her friend if she could just be his. Her depression got worse. She was not eating. She states she could not take care of herself. Her stressors include a recent overdose in July when she took what she calls a "cocktail" of illicit substances which led her to overdose on Effexor. She also does not have a lot of social support. She feels as though her mental health is not a safe situation. She is endorsing symptoms of decreased sleep, decreased interest , decreased energy, inability to eat, and interestingly she does not endorse suicidal ideation. PAST PSYCHIATRIC HISTORY: She has had previous admissions as a child and as an adult. The most recent was on 07/05/15 when she was 20. In her adolescence, she was seen many times on the adolescent unit here at [facility] [place]. During those times , she was under consideration for borderline personality disorder, ADHD, reactive attachment disorder, oppositional defiant disorder, and bipolar disorder. She has a history of self-injury and violence and substance abuse. Her previous psychiatric medications are quite extensive in her estimation. She states that there are a list of medications that she has tried and she does not remember what they are. PAST MEDICAL HISTORY: She has had 2 children and 3 pregnancies that were not completed. TRAUMA HISTORY: In her past, she has had multiple issues with her own custody. There were many transfers of custody. She had succession of foster care placements. She has an adopted mother who she met in foster care. She had chronic behavioral difficulties in those settings. She had formal residential placements due to behavior problems, and she aged out of the adolescent residential system at 19. ALLERGIES: She is allergic to AMOXICILLIN, ZIPRASIDONE and is listed also as being allergic to HYDROXYZINE, LACTOSE, LORAZEPAM, PENICILLIN, and PINEAPPLE. FAMILY HISTORY: Largely unknown as she has been adopted. There is alcohol and drug addiction in biological mom, ADHD in a cousin. SUBSTANCE ABUSE: She does use nicotine. She smokes 4 to 8 Black and Mild cigars daily. She is in treatment at [facility]. She goes 3 times a week. She states she has been sober for 3 years, but she describes a relapse in July that eventually led to an overdose and a recent episode where she was drunk with her friend. SOCIAL HISTORY: Please refer in part to history of trauma. Also, she is unemployed. She had been working at the [employer] but found that to be too distracting and not enough detailed orientation. She does not have any legal problems at this time. REVIEW OF SYSTEMS: The patient reports feeling fatigued. She denies shortness of breath, heat or cold intolerance, chest pain, or abdominal pain. She is dizzy at this time likely because of an overdose of nicotine by taking a patch and an inhaler. Her vitals were checked and they are within normal limits. She denies fevers. She states she has lost 20 pounds recently. PHYSICAL EXAMINATION On 09/15/18, temperature was 97.7, pulse 99, respirations 16, O2 sat on room air 99, blood pressure 116/57. For further exam data, please see emergency department records which are within normal limits. LABORATORY DATA: Laboratory data are largely within normal limits. Exceptions include hemoglobin low at 10.9, MCV and MCH low, RDW high. Her glucose was slightly high at 102. Her AST was a little low at 11. Her hemoglobin A1c is 4.9, triglycerides are 134, cholesterol 164, LDL cholesterol 99, HDL cholesterol 38.3. Incidentally, her TSH is 1.06, and her test is negative. Her urine screen contained blood, leukocyte esterase, white blood cells, red blood cells, squamous epithelial cells, calcium oxalate crystals, and ascorbic acid. It is negative for bacteria. Her urine drug screen was free from substances. MENTAL STATUS EXAM: This is a young woman appearing her stated age, who has dyed red hair that is piled up on the top of her head. Her grooming is adequate. Her behavior is within normal limits. She is calm and cooperative. Her speech is normal. Rate, tone, and volume and quite a large quantity. She is apparently euthymic. She has a full range of affect. Her thought processes are normal. Her thought content contains no delusions. She is not homicidal or suicidal. She is not having hallucinations. Her insight is fair. Her judgment is fair. She is alert and oriented x3. DIAGNOSES: [place] I: Mood disorder, NOS. [place] II: Borderline personality disorder. IMPRESSION: Kiana is a 23-year-old woman who comes to the hospital as recommended by her therapist and her addiction recovery therapist for depressed thoughts and behaviors that led her to take poor care of herself including little to no sleep and no eating. PLAN: The patient is admitted to the adult behavioral health unit and placed on q.15 minute checks for her own safety. She is encouraged to participate in supportive milieu, individual and group therapy. Estimated length of stay is 3 to 5 days. We will titrate medications including lithium to efficacy and monitor for mood and thought content. Discharge planning will include family involvement if she chooses and outpatient providers. LAURA APPLE, TANYA [id number]/[facility] #: [id number] ADAM
[2018-09-16] MEDS ORDERED: traZODone TAB* 50 MG TAB PO PRN (20:48)
[2018-09-16] MEDS: Lithium Carbonate TAB* 300 MG PO SCH (21:04)
[2018-09-17] MEDS: Nicotine Inhaler* 10 MG AMP INH PRN (08:34)
[2018-09-17] MEDS: Nicotine PATCH 14 MG/24 HR* PATCH TRANSDERM SCH (08:35)
[2018-09-17] MEDS: Vitamin THERAPEUTIC TAB PO SCH (08:35)
[2018-09-17] MEDS: Lithium Carbonate TAB* 300 MG PO SCH ×2 (08:35→20:16)
[2018-09-17] MEDS: NORETHINDRONE 0.35 MG PO SCH (08:35)
[2018-09-17] MEDS: Nicotine GUM* 2 MG PO PRN (09:27)
[2018-09-17] MEDS: Acetaminophen TAB* 325 MG PO PRN (15:36)
[2018-09-17] MEDS: Nicotine PATCH 7 MG/24 HR* PATCH TRANSDERM SCH (18:36)
[2018-09-17] MEDS: Nicotine Patch Removal NOTE FOLLOW UP SCH (20:16)
[2018-09-18] MEDS: Vitamin THERAPEUTIC TAB PO SCH (08:48)
[2018-09-18] MEDS: Lithium Carbonate TAB* 300 MG PO SCH ×2 (08:48→20:07)
[2018-09-18] MEDS: Nicotine Inhaler* 10 MG AMP INH PRN (08:49)
[2018-09-18] MEDS: NORETHINDRONE 0.35 MG PO SCH (08:50)
[2018-09-18] MEDS: Acetaminophen TAB* 325 MG PO PRN ×2 (09:57→15:59)
[2018-09-18] MEDS: Nicotine PATCH 7 MG/24 HR* PATCH TRANSDERM SCH (11:34)
[2018-09-18 16:00] LABS: Urine Appearance Clear; Urine Bilirubin Negative (Negative); Urine Blood Negative (Negative); Urine Color Yellow; Urine Glucose Negative (Negative); Urine Ketones Negative (Negative); Urine Nitrite Negative (Negative); Urine Protein Negative (Negative); Urine Specific Gravity 1.016 (1.010-1.030); Urine Urobilinogen Negative (Negative)
--- NOTE | 2018-09-18 17:11 | PN ---
Subjective - Subjective Date of Service: 09/18/18 Service Type: 83512 Hosp care 15 min low complexity Subjective: Dudley didn't offer any psychiatric complains but pain in the left renal angle which responded to Tylenol. UA and ultrasound of abdomen ordered. UA WNL and awaiting the ultrasound. Objective - Appearance Appearance: Healthy Appearing Dysmorphic Features: No Hygiene: Normal Grooming: Well Kept - Behavior Psychomotor Activities: Normal Exhibits Abnormal Movement: No - Attitude and Relatedness Attitude and Relatedness: Appropriate Eye Contact: Good - Speech Quality: Unpressured Latencies: Normal Quantity: Appropriate - Mood Patient's Decription of Mood: "Fine" - Affect Observed Affect: Non-labile - Thought Process Patient's Thought Process: Coherent, Goal Directed Thought Content: No Passive Wish, No Suicidal Planning, No Homicidal Ideation, No Paranoid Ideation - Sensorium Experiencing Hallucinations: No, Sensorium is Clear Type of Hallucinations: Visual: No, Auditory: No, Command: No - Level of Consciousness Level of Consciousness: Alert Orientation: Yes Intact, Yes Orientated to Time, Yes Orientated to Place, Yes Orientated to Person - Impulse Control Impulse Control: Intact - Insight and Judgement Insight and Judgement: Fair - Group Participation Particating in Group Activities: Yes - Medication Management Medication Management Adherence: Yes Assessment - Assessment Merits Inpatient Hospitalization: For Stabilization, Consolidate Improvements, Pending Safe DC Plan Plan - Plan Treatment Plan: Name: DUDLEY COOPER Birthdate: 1995 [id number] Continued Medication Management: Continue Outpt Medication Medications: Current Medications Acetaminophen (Tylenol Tab*) 650 mg PO Q4H PRN PRN Reason: PAIN or TEMP > 101 F Last Admin: 09/18/18 15:59 Dose: 650 mg Al Hydrox/Mg Hydrox/Simethicone (Maalox Plus*) 30 ml PO Q4H PRN PRN Reason: INDIGESTION Albuterol (Ventolin Hfa Inhaler*) 2 puff INH Q4H PRN PRN Reason: ASTHMA Last Admin: 09/16/18 09:00 Dose: 2 puff Device (Nicotine Mouth Piece*) 1 each INH .CARTRIDGE LEONARDA Last Admin: 09/16/18 07:12 Dose: 1 each Hydrocortisone (Hytone Cream 1%*) 1 applic TOPICAL QID PRN PRN Reason: ITCHING Herr[place] Carbonate (Herrings Carbonate Tab*) 300 mg PO BID [facility] Last Admin: 09/18/18 08:48 Dose: 300 mg Multivitamins (Theragran Tab*) 1 tab PO DAILY [facility] Last Admin: 09/18/18 08:48 Dose: 1 tab Nicotine (Nicotine Inhaler*) 10 mg INH Q2H PRN PRN Reason: CRAVING Last Admin: 09/18/18 08:49 Dose: 10 mg Nicotine (Nicotine Patch 7 Mg/24 Hr*) 1 patch TRANSDERM DAILY [facility] Last Admin: 09/18/18 11:34 Dose: Not Given Nicotine Polacrilex (Nicotine Gum*) 2 mg PO Q2H PRN PRN Reason: CRAVING Last Admin: 09/17/18 09:27 Dose: 2 mg Norethindrone (Eleanor (Nf)) 0.35 mg PO DAILY [facility] Last Admin: 09/18/18 08:50 Dose: Not Given Pharmacy Profile Note (Nicotine Patch Removal Note*) 1 note FOLLOW UP 2100 [facility] Last Admin: 09/17/18 20:16 Dose: Not Given Trazodone HCl (Desyrel Tab*) 50 mg PO ONCE PRN PRN Reason: .ANXIETY/INSOMNIA Last Admin: 09/16/18 21:05 Dose: 50 mg - Discharge Plan Discharge Plan: Outpatient Follow Up Outpatient Program: [facility]
[2018-09-18] MEDS: Albuterol HFA INHALER* 8 gm MDI INH PRN (20:06)
[2018-09-18] MEDS: Nicotine Patch Removal NOTE FOLLOW UP SCH (20:30)
[2018-09-18] MEDS ORDERED: traZODone TAB* 50 MG TAB PO PRN (21:00)
--- NOTE | 2018-09-18 21:22 | CONS ---
[facility] MEDICINE CONSULTATION REPORT: DATE OF CONSULT: 09/18/18 ATTENDING PHYSICIAN: Dr. Isaacs. CONSULTING PHYSICIAN: Dr. Kay (dictation provided by Evita Haines NP) REASON FOR CONSULTATION: Right flank pain. HISTORY OF PRESENT ILLNESS: Ms. Jacobs is a 23-year-old female with a past medical history of what she reports as epilepsy and asthma, who [facility] [facility] with concern for depression based on some difficulty with a friend. The patient today at noon began complaining of right flank pain. The patient states that she has a history of kidney stones in the past with similar presentation. She also has a history, per her report, of frequent urinary tract infections. She states she has had no burning with urination, she has had no frequency. She has the flank pain, it seems to radiate down the back but does not wrap around to the flank. She denies any fever. She denies any abdominal pain. PAST MEDICAL HISTORY: 1. Reported epilepsy. 2. Reported asthma. 3. Borderline personality disorder. 4. ADHD. 5. Bipolar disorder. MEDICATIONS: At this time are: 1. Tylenol p.r.n. 2. Albuterol p.r.n. 3. Hydrocortisone cream p.r.n. 4. [place] carbonate 300 mg p.o. b.i.d. 5. Nicotine replacement therapy p.r.n. 6. Norethindrone 0.35 mg p.o. daily. 7. Trazodone p.r.n. 8. Multivitamin p.r.n. ALLERGIES: To AMOXICILLIN, HYDROXYZINE, LACTOSE, LORAZEPAM, PENICILLIN, PINEAPPLE, GEODON, and WHEAT. FAMILY HISTORY: She is adopted and has no family history. SOCIAL HISTORY: The patient is a smoker. She was in treatment at [facility] prior to this admission. REVIEW OF SYSTEMS: A 14-point review of systems was completed with Ms. Jacobs and all those not mentioned above were negative. PHYSICAL EXAM: Vital Signs: Temperature 98.2, pulse rate 81, respiratory rate 16, O2 saturation 100% on room air, blood pressure 101/78. General: Ms. Jacobs is sitting in the milieu in no acute distress. Neuro: She is alert, she is oriented x3. She moves all extremities equally. There is no facial asymmetry or focal weakness. Extraocular movements are intact. Heart: S1, S2. No murmur, rub, or gallop, and regular. Lungs: Clear to auscultation bilaterally with no accessory muscle use and good aeration. Abdomen: Soft and nontender. The patient does have CVA tenderness to palpation. Extremities: No edema. Skin is intact. LABORATORY DATA: The patient's last labs are on 09/15/18, she had WBC 5.6, hemoglobin 10.9, hematocrit 35, platelet count 339,000. Sodium 138, potassium 4.0, chloride 105, serum bicarbonate 27, BUN 9, creatinine 0.64, glucose 102. Hemoglobin A1c 4.9. Urine on 09/18/18 showed no evidence of infection. ASSESSMENT AND PLAN: Ms. Jacobs is a 23-year-old female with a past medical history of report of frequent kidney stones, now with right flank pain and concern for possible kidney stone. She has no evidence of infection. She has no fever. She has no burning or frequency. Her urinalysis is negative. I will plan for an ultrasound to avoid high dose radiation. If there is any concern with the ultrasound, we will follow up with CT abdomen. I will note that from our record in 2018, the patient had a CT abdomen that showed no kidney stone, another on 08/31/16 that showed no acute pelvic process and a nonobstructing calyceal stone and on 08/24/16 no abnormality, so at least these kidney stones were not treated here at this hospital. I will await the ultrasound result to follow up with the patient as needed. EIVTA HAINES NP [id number]/[facility] #: [id number] ADAM
[2018-09-19 08:30] VITALS: BP 112/68
[2018-09-19] MEDS: NORETHINDRONE 0.35 MG PO SCH (08:54)
[2018-09-19] MEDS: Nicotine PATCH 7 MG/24 HR* PATCH TRANSDERM SCH (08:54)
[2018-09-19] MEDS: Lithium Carbonate TAB* 300 MG PO SCH (08:54)
[2018-09-19] MEDS: Vitamin THERAPEUTIC TAB PO SCH (08:54)
[2018-09-19] MEDS ORDERED: Ibuprofen TAB* 600 MG PO PRN (11:45)
--- NOTE | 2018-09-19 14:01 | PN ---
Progress Note - Progress Note Date of Service: 09/19/18 Note: US of kidneys negative for hydronephrosis or nephrolithiasis. No midline tenderness to suggest spinal injury. Suspect musculoskeletal injury. It is improved with tylenol and hot packs. Hospital Medicine will sign off for now but please do not hesitate to contact us if you have any further questions or concerns.
== END 2018-09-19 16:08 | disposition home or self-care (01) | DRG 753 ==
LOC: ED 12:24 → BSU 19:42
PROVIDERS: ADMIT Psychiatry & Neurology Psychiatry; ATTEND Psychiatry & Neurology Psychiatry
DX: F39 Unspecified mood [affective] disorder (principal); R45.851 Suicidal ideations; F60.3 Borderline personality disorder; F90.9 Attention-deficit hyperactivity disorder, unspecified type; F17.290 Nicotine dependence, other tobacco product, uncomplicated; J45.909 Unspecified asthma, uncomplicated; R10.9 Unspecified abdominal pain; Z88.1 Allergy status to other antibiotic agents; Z88.0 Allergy status to penicillin; Z88.8 Allergy status to other drugs, medicaments and biological substances; Z91.018 Allergy to other foods; Z81.3 Family history of other psychoactive substance abuse and dependence; Z81.8 Family history of other mental and behavioral disorders; Z79.899 Other long term (current) drug therapy
CPT/HCPCS: 36415; 76775; 80053; 80061; 80307; 80320; 80329; 81003; 81015; 83036; 84443; 85025; 86703; 87086; 99222; 99231; 99283; A9270-GY; G0480

== ENCOUNTER 2018-10-01 19:18 | Emergency (ER) | payer OTHER ==
--- NOTE | 2018-10-01 20:01 | UC ---
Psychiatric Complaint HPI - HPI Summary HPI Summary: This patient is a 23 year old F presenting to [facility] with a chief complaint of illicit drug use to improve her mental health. She states she was here one month ago and was admitted for depression and drug use. She was prescribed lithium; however it made her feel worse so she stopped taking it and relapsed. Denies SI, HI, and auditory hallucinations. - History Of Current Complaint Chief Complaint: EDPsychosocial Stated Complaint: MHE Time Seen by Provider: 10/01/18 19:38 Hx Obtained From: Patient Hx Last Menstrual Period: 10/05/16 Onset/Duration: Lasting Days Timing: Constant Aggravating Factor(s): Medication Non-compliance, Drug Use Associated Signs And Symptoms: Negative Related History: Positive For: Prior Psychiatric Issues - Allergies/Home Medications Allergies/Adverse Reactions: Allergies Allergy/AdvReac Type Severity Reaction Status Date / Time wheat Allergy Intermediate Vomiting Verified 09/25/18 22:22 amoxicillin Allergy Unknown Verified 10/01/18 19:24 Reaction Details hydroxyzine [From Atarax] Allergy See Comment Verified 10/01/18 19:24 lactose Allergy Abdominal Verified 09/25/18 20:38 Pain lorazepam [From Ativan] Allergy Unknown Verified 10/01/18 19:24 Reaction Details Penicillins Allergy Unknown Verified 10/01/18 19:24 Reaction Details pineapple Allergy Hives Verified 10/01/18 19:24 ziprasidone [From Geodon] Allergy See Comment Verified 10/01/18 19:24 PMH/Surg Hx/FS Hx/Imm Hx Psychological History: Depression Other History Of: Negative For: HIV, Hepatitis B, Hepatitis C, Anticoagulant Therapy - Surgical History Surgical History: Yes Surgery Procedure, Year, and Place: 07/31/17 - Family History Known Family History: Positive: Unknown - Adopted, Other - Biological mother - EtOH and drug abuse Negative: Blood Disorder - Social History Alcohol Use: None Alcohol Amount: pt denies during Substance Use Type: Marijuana, Synthetic Drugs Substance Use Comment - Amount & Last Used: used in past, ecstacy and others, at [facility] outpatient 09/2018 Smoking Status (MU): Former Smoker Type: Cigarettes Have You Smoked in the Last Year: No When Did the Patient Quit Smoking/Using Tobacco: age 18 - Immunization History Most Recent Influenza Vaccination: Fall 2015 Most Recent Tetanus Shot: 06/18/2016 Most Recent Pneumonia Vaccination: never Review of Systems All Other Systems Reviewed And Are Negative: Yes Constitutional: Positive: Negative Psychological: Positive: Other - relapsed Physical Exam - Summary Physical Exam Summary: Appearance: Well appearing, no pain distress Skin: warm, dry, reflects adequate perfusion Head/face: normal Eyes: EOMI, MELITA ENT: normal Neck: supple, non-tender Respiratory: CTA, breath sounds present Cardiovascular: RRR, pulses symmetrical Abdomen: non-tender, soft Musculoskeletal: normal, strength/ROM intact Neuro: normal, sensory motor intact, A&Ox3 Triage Information Reviewed: Yes Vital Signs: Initial Vital Signs Temp 96.7 F 10/01/18 19:19 Pulse 121 10/01/18 19:19 Resp 18 10/01/18 19:19 BP 107/86 10/01/18 19:19 Pulse Ox 97 10/01/18 19:19 Vital Signs Reviewed: Yes Psych Complaint Course/Dx - Course Course Of Treatment: 23 year old F presenting to [facility] with a chief complaint of illicit drug use to improve her mental health. She states she was here one month ago and was admitted for depression and drug use. She was prescribed lithium; however it made her feel worse so she stopped taking it and relapsed. Denies SI, HI, and auditory hallucinations. Bloodwork, UA, and Toxicology report is obtained. Patient is cleared for mental health evaluation. Patient will be signed out to Dr. Colorado awaiting MHE and disposition. - Differential Dx/Diagnosis Provider Diagnosis: Depression Discharge - Sign-Out/Discharge Documenting (check all that apply): Sign-Out Patient Signing out patient TO: Maddi Colorado - MHE - Discharge Plan Referrals: No Primary Care Phys,NOPCP [Primary Care Provider] - - Attestation Statements Document Initiated by Scribe: Yes Documenting Scribe: Saige Bautista Provider For Whom Clauibe is Documenting (Include Credential): Wyatt Khan Scribjules Attestation: Saige Curran scribed for Wyatt Khan on 10/01/18 at 0498. Status of Scribe Document: Ready
[2018-10-01 20:07] LABS: ABS Basophils 0.1 10^3/ul (0-0.2); ABS Eosinophils 0.1 10^3/ul (0-0.6); ABS Lymphocytes 2.7 10^3/ul (1.0-4.8); ABS Monocytes 0.7 10^3/ul (0-0.8); ABS Neutrophils 5.4 10^3/ul (1.5-7.7); ABS Nucleated RBC 0 10^3/ul; Eosinophil % 1.1 %; Hematocrit 39 % (35-47); Hemoglobin 12.2 g/dl (12.0-16.0); Lymphocyte % 29.8 %; Mean Corpuscular HGB Conc 32 g/dl (31-36); Mean Corpuscular Hemoglobin 23 pg (27-31); Mean Corpuscular Volume 72 fL (80-97); Mean Platelet Volume 9.1 fL (7.4-10.4); Nucleated Red Blood Cells % 0; Platelet Count 469 10^3/ul (150-450); Red Blood Count 5.41 10^6/ul (4.00-5.40); Red Cell Distribution Width 18 % (10.5-15)
[2018-10-01 20:16] LABS: ALT 9 U/L (7-52); AST 11 U/L (13-39); Albumin 4.7 g/dL (3.2-5.2); Albumin/Globulin Ratio 1.5 (1-3); Alkaline Phosphatase 69 U/L (34-104); Anion Gap 6 mmol/L (2-11); Blood Urea Nitrogen 5 mg/dL (6-24); CO2 Carbon Dioxide 26 mmol/L (22-32); Calcium 9.7 mg/dL (8.6-10.3); Chloride 105 mmol/L (101-111); Globulin 3.1 g/dL (2-4); Glucose 107 mg/dL (70-100); Potassium 4.1 mmol/L (3.5-5.0); Sodium 137 mmol/L (135-145); Total Protein 7.8 g/dL (6.4-8.9)
[2018-10-01 20:24] LABS: Acetaminophen < 15 mcg/mL; Alcohol < 10 mg/dL (<10); Lithium < 0.10 mmol/L (0.6-1.2); Salicylate < 2.50 mg/dL (<30)
[2018-10-01 20:39] LABS: TSH (Thyroid Stimulating Horm) 1.12 mcIU/mL (0.34-5.60)
--- NOTE | 2018-10-01 22:02 | ED ---
Progress - Progress Note Progress Note: The pt is a 23 year old female who was signed out from Dr. Khan to Dr. Colorado. She is currently awaiting MHE and Disposition. - Consult/PCP Time Called: 19:19 Course/Dx - Course Course Of Treatment: 23 year old F presenting to [facility]. Patient was out to Dr. Colorado awaiting MHE and disposition. Upon receicing MHE by Dr. Isaacs, the patient will be dx with substance abuse and adjustment disorder. She is recommended to follow up with [facility] in [facility]. The patient will be discharged home. - Diagnoses Provider Diagnoses: Adjustment disorder, Substance abuse Discharge - Sign-Out/Discharge Documenting (check all that apply): Patient Departure - Discharge Plan Condition: Stable Disposition: HOME Patient Education Materials: Stress (ED), Mood Disorders (ED) Referrals: No Primary Care Phys,NOPCP [Primary Care Provider] - - Attestation Statements Document Initiated by Scribe: Yes Documenting Scribe: Jose Schroeder Provider For Whom Scribe is Documenting (Include Credential): Dr. Maddi Colorado Scribjules Attestation: Jose Curran scribed for Dr. Maddi Colorado on 10/02/18 at 0025. Status of Scribe Document: Ready
[2018-10-01 22:34] VITALS: BP 124/88
== END 2018-10-01 22:20 | disposition home or self-care (01) ==
LOC: ED 19:18
DX: F43.21 Adjustment disorder with depressed mood (principal); F19.10 Other psychoactive substance abuse, uncomplicated; Z88.0 Allergy status to penicillin; Z88.8 Allergy status to other drugs, medicaments and biological substances; Z91.018 Allergy to other foods; Z87.891 Personal history of nicotine dependence
CPT/HCPCS: 36415; 80053; 80178; 80320; 80329; 84443; 85025; 99284; G0480

== ENCOUNTER → 2018-12-31 16:10 | Emergency (ER) | payer MEDICAID ==
[~2018-12-31 16:10] MED LIST: NS 0.9% 1000 ML** 1,000 ML IV ONE; Ondansetron INJ* 2 MG/ML VIAL IV ONE; Sulfamethox/Trimethoprim DS 800/160* TAB PO ONE
[2018-12-31 16:53] LABS: ABS Basophils 0.1 10^3/ul (0-0.2); ABS Eosinophils 0.2 10^3/ul (0-0.6); ABS Lymphocytes 2.2 10^3/ul (1.0-4.8); ABS Monocytes 0.5 10^3/ul (0-0.8); ABS Neutrophils 4.4 10^3/ul (1.5-7.7); ABS Nucleated RBC 0 10^3/ul; Eosinophil % 2.2 %; Hematocrit 35 % (33-41); Hemoglobin 11.1 g/dL (12.0-16.0); Lymphocyte % 29.5 %; Mean Corpuscular HGB Conc 32 g/dL (31-36); Mean Corpuscular Hemoglobin 24 pg (27-31); Mean Corpuscular Volume 75 fL (80-97); Mean Platelet Volume 8.7 fL (7.4-10.4); Nucleated Red Blood Cells % 0; Platelet Count 406 10^3/uL (150-450); Red Blood Count 4.63 10^6 /uL (3.70-4.87); Red Cell Distribution Width 18 % (10.5-15); White Blood Count 7.4 10^3/uL (3.5-10.8)
[2018-12-31 17:10] LABS: ALT 6 U/L (7-52); AST 10 U/L (13-39); Albumin 3.9 g/dL (3.2-5.2); Albumin/Globulin Ratio 1.6 (1-3); Alkaline Phosphatase 61 U/L (34-104); Anion Gap 8 mmol/L (2-11); Blood Urea Nitrogen 8 mg/dL (6-24); C Reactive Protein 2.24 mg/L (<8.01); CO2 Carbon Dioxide 25 mmol/L (22-32); Calcium 8.9 mg/dL (8.6-10.3); Chloride 105 mmol/L (101-111); EGFR Non-African American 79.3 (>60); Globulin 2.4 g/dL (2-4); Glucose 135 mg/dL (70-100); Potassium 3.7 mmol/L (3.5-5.0); Sodium 138 mmol/L (135-145); Total Protein 6.3 g/dL (6.4-8.9)
--- NOTE | 2018-12-31 17:11 | ED ---
Nausea/Vomiting/Diarrhea HPI - HPI Summary HPI Summary: Patient is a 23-year-old female presenting to the ED with weakness, nausea, fatigue and chest pressure after having approximately 4 shots of liquor and one third gram marijuana. She does endorse cocaine use last evening, but nothing today. She states she has had accommodation of liquor and marijuana in the past with no similar reactions. She states she would like to be evaluated for her weakness and her nausea. History of depressive disorder, but denies any SI or HI at this time. Denies any current depression and anxiety symptoms. She is unsure if she is . She denies any vomiting, diarrhea, constipation, headache, memory loss, confusion. She is endorsing weakness and fatigue and states she has not eaten or drank anything other than her alcohol use. She does not drink alcohol daily and does not smoke marijuana daily. - History of Current Complaint Chief Complaint: EDSubstanceAbuse Stated Complaint: DRANK TOO MUCH PER BOYFRIEND Time Seen by Provider: 12/31/18 16:12 Hx Obtained From: Patient Hx Last Menstrual Period: 10/05/16 ?: No Onset/Duration: Sudden Onset Timing: Constant Severity Initially: Mild Severity Currently: Mild Pain Intensity: 0 Pain Scale Used: 0-10 Numeric Aggravating Factor(s): Nothing Alleviating Factor(s): Nothing - Risk Factors Influenza Risk Factors: Negative - Allergies/Home Medications Allergies/Adverse Reactions: Allergies Allergy/AdvReac Type Severity Reaction Status Date / Time amoxicillin Allergy Severe Rash Verified 12/31/18 16:37 Penicillins Allergy Severe Anaphylatic Verified 12/31/18 16:37 Shock wheat Allergy Intermediate Vomiting Verified 12/31/18 16:37 hydroxyzine [From Atarax] Allergy Unknown See Comment Verified 12/31/18 16:37 lactose Allergy Unknown Abdominal Verified 12/31/18 16:37 Pain lorazepam [From Ativan] Allergy Unknown Unknown Verified 12/31/18 16:37 Reaction Details pineapple Allergy Unknown Hives Verified 12/31/18 16:37 ziprasidone [From Geodon] Allergy Unknown See Comment Verified 12/31/18 16:37 PMH/Surg Hx/FS Hx/Imm Hx Previously Healthy: Yes Endocrine/Hematology History: Reports: Other Endocrine/Hematological Disorders - Polycystic Ovarian Syndrome Denies: Hx Anticoagulant Therapy, Hx Diabetes, Hx Thyroid Disease Cardiovascular History: Reports: Other Cardiovascular Problems/Disorders - MURMUR Denies: Hx Hypertension Respiratory History: Reports: Hx Asthma Denies: Hx Chronic Obstructive Pulmonary Disease (COPD), Hx Lung Cancer, Hx Pneumonia, Hx Pulmonary Embolism, Other Respiratory Problems/Disorders GI History: Reports: Other GI Disorders - wheat allergy and lactose intolerance Denies: Hx Gall Bladder Disease, Hx Gastrointestinal Bleed, Hx Ulcer, Hx Urosepsis History: Reports: Other Problems/Disorders - hx multiple UTIs Denies: Hx Kidney Stones, Hx Renal Disease Sensory History: Reports: Hx Contacts or Glasses Denies: Hx Hearing Aid Opthamlomology History: Reports: Hx Contacts or Glasses Neurological History: Reports: Hx Seizures, Other Neuro Impairments/Disorders - positive: epilepsy Denies: Hx Dementia, Hx Migraine, Hx Transient Ischemic Attacks (TIA) Psychiatric History: Reports: Hx Anxiety, Hx Depression, Hx Inpatient Treatment - [facility], Hx Community Mental Health Tx - [facility], [facility], Hx Substance Abuse - multiple , currently at [facility] 09/2018, Other Psychiatric Issues/Disorders - borderline personality, bipolar, PTSD Denies: Hx Attention Deficit Hyperactivity Disorder, Hx Eating Disorder, Hx Panic Disorder, Hx Post Traumatic Stress Disorder, Hx Schizophrenia, Hx Bipolar Disorder, Hx Suicide Attempt, Hx of Violent Episodes Against Others - Surgical History Surgery Procedure, Year, and Place: 07/31/17 - Immunization History Date of Tetanus Vaccine: Unk Date of Influenza Vaccine: None Hx Pertussis Vaccination: No Immunizations Up to Date: Yes Infectious Disease History: No Infectious Disease History: Denies: Hx Hepatitis, Hx Human Immunodeficiency Virus (HIV), Hx of Known/ Suspected MRSA, History Other Infectious Disease, Traveled Outside the [place] in Last 30 Days - Family History Known Family History: Positive: None, Unknown - Adopted, Other - Biological mother - EtOH and drug abuse Negative: Blood Disorder - Social History Occupation: Unemployed Lives: With Family Alcohol Use: Weekly Alcohol Amount: pt states 3x/week 6-8 drinks at a time, last intake 12/18/18 2030 per pt Hx Substance Use: Yes Substance Use Type: Reports: Cocaine, Marijuana, Synthetic Drugs Substance Use Comment - Amount & Last Used: marijuana daily. used in past; ecstacy, at [facility] outpatient 09/2018 Hx Tobacco Use: Yes Smoking Status (MU): Former Smoker Type: Cigarettes Have You Smoked in the Last Year: No Review of Systems Constitutional: Negative Positive: Fatigue. Negative: Fever, Chills, Skin Diaphoresis Negative: Epistaxis, Dental Pain Negative: Palpitations, Chest Pain Negative: Shortness Of Breath, Cough Positive: see HPI Musculoskeletal: Negative Negative: Rash, Bruising Positive: Weakness. Negative: Headache All Other Systems Reviewed And Are Negative: Yes Physical Exam Triage Information Reviewed: Yes Vital Signs On Initial Exam: Initial Vitals Temp Pulse Resp BP Pulse Ox 97.0 F 55 12 82/50 97 12/31/18 16:11 12/31/18 16:11 12/31/18 16:11 12/31/18 16:11 12/31/18 16:11 Vital Signs Reviewed: Yes Appearance: Positive: Ill-Appearing Skin: Positive: Dry, Pale Head/Face: Positive: Normal Head/Face Inspection Eyes: Positive: EOMI, Conjunctiva Clear Neck: Positive: Supple, No Lymphadenopathy Respiratory/Lung Sounds: Positive: Breath Sounds Present Cardiovascular: Positive: RRR, Pulses are Symmetrical in both Upper and Lower Extremities Musculoskeletal: Positive: Normal, Strength/ROM Intact Neurological: Positive: Speech Normal Psychiatric: Positive: Normal, Affect/Mood Appropriate AVPU Assessment: Alert Diagnostics - Vital Signs Vital Signs Temp Pulse Resp BP Pulse Ox 12/31/18 16:27 89 30 71/56 99 12/31/18 16:23 73 19 95/56 98 12/31/18 16:21 71 98 12/31/18 16:11 97.0 F 55 12 82/50 97 - Laboratory Lab Results: Lab Results 12/31/18 12/31/18 12/31/18 Range/Units 16:47 16:47 16:47 WBC 7.4 (3.5-10.8) 10^3/uL RBC 4.63 (3.70-4.87) 10^6 /uL Hgb 11.1 L (12.0-16.0) g/dL Hct 35 (33-41) % MCV 75 L (80-97) fL MCH 24 L (27-31) pg MCHC 32 (31-36) g/dL RDW 18 H (10.5-15) % Plt Count 406 (150-450) 10^3/uL MPV 8.7 (7.4-10.4) fL Neut % (Auto) 60.4 % Lymph % (Auto) 29.5 % [place] % (Auto) 7.0 % Eos % (Auto) 2.2 % Baso % (Auto) 0.9 % Absolute Neuts (auto) 4.4 (1.5-7.7) 10^3/ul Absolute Lymphs (auto) 2.2 (1.0-4.8) 10^3/ul Absolute Monos (auto) 0.5 (0-0.8) 10^3/ul Absolute Eos (auto) 0.2 (0-0.6) 10^3/ul Absolute Basos (auto) 0.1 (0-0.2) 10^3/ul Absolute Nucleated RBC 0 10^3/ul Nucleated RBC % 0 Sodium 138 (135-145) mmol/L Potassium 3.7 (3.5-5.0) mmol/L Chloride 105 (101-111) mmol/L Carbon Dioxide 25 (22-32) mmol/L Anion Gap 8 (2-11) mmol/L BUN 8 (6-24) mg/dL Creatinine 0.89 (0.51-0.95) mg/dL Est GFR ( Amer) 96.0 (>60) Est GFR (Non-Af Amer) 79.3 (>60) BUN/Creatinine Ratio 9.0 (8-20) Glucose 135 H (70-100) mg/dL Lactic Acid 2.0 (0.5-2.0) mmol/L Calcium 8.9 (8.6-10.3) mg/dL Total Bilirubin 0.70 (0.2-1.0) mg/dL AST 10 L (13-39) U/L ALT 6 L (7-52) U/L Alkaline Phosphatase 61 (34-104) U/L Troponin I Pending C-Reactive Protein 2.24 (<8.01) mg/L Total Protein 6.3 L (6.4-8.9) g/dL Albumin 3.9 (3.2-5.2) g/dL Globulin 2.4 (2-4) g/dL Albumin/Globulin Ratio 1.6 (1-3) Beta HCG, Quant Pending Result Diagrams: 12/31/18 16:47 12/31/18 16:47 Lab Statement: Any lab studies that have been ordered have been reviewed, and results considered in the medical decision making process. Naus/Vom/Diarrhea Course/Dx - Course Course Of Treatment: During the course of treatment, the patient is evaluated for nausea, fatigue, weakness and midsternal chest pressure after having 4 shots of liquor and smoking 1/3 g marijuana just prior to arrival. She states she has had this commentation before with no adverse reactions. She denies any history of chest discomfort or cardiac problems. She does have asthma and takes albuterol as needed. She is endorsing midsternal chest pressure, not worse with palpation. On physical examination, patient appears fatigued, pale, nondiaphoretic but nontoxic in appearing. Vital signs are 55 heart rate respirations 12, 97% on room air and 82/50. She is immediately given 2 L fluids on arrival as well as Zofran. She continues to endorse chest pain, so EKG obtained. She is signed out to William Pitt PA-C pending improvement of symptoms. - Differential Dx/Diagnosis Differential Diagnoses - Female: Dehydration Provider Diagnosis: Alcohol use Condition At Discharge: Good Discharge - Sign-Out/Discharge Documenting (check all that apply): Sign-Out Patient Signing out patient TO: William Pitt Patient Received Moderate/Deep Sedation with Procedure: No - Discharge Plan Condition: Good Disposition: HOME Prescriptions: Sulfamethox/Trimethoprim DS* [Bactrim DS 800/160 TAB*] 1 tab PO BID #20 tab Patient Education Materials: Urinary Tract Infection in Women (ED) Referrals: [facility] [Outside] Additional Instructions: Call the [facility] Wednesday for a close follow up appointment Take antibiotic as directed Avoid drug and alcohol use Increase fluids and rest Return to ER if symptoms change or worsen - Billing Disposition and Condition Condition: GOOD Disposition: Home
[2018-12-31 17:17] LABS: HCG Pregnancy < 0.60 mIU/mL
[2018-12-31 17:43] LABS: Alcohol 16 mg/dL (<10)
[2018-12-31 18:49] LABS: Urine Appearance Cloudy; Urine Bacteria 1+ (Absent); Urine Bilirubin Negative (Negative); Urine Blood Negative (Negative); Urine Color Yellow; Urine Glucose Negative (Negative); Urine Ketones Trace (Negative); Urine Nitrite Positive (Negative); Urine Protein 2+(100 mg/dL) (Negative); Urine Red Blood Cell Absent (Absent); Urine Specific Gravity 1.021 (1.010-1.030); Urine Squamous Epithelial Cell Present (Absent); Urine Urobilinogen Negative (Negative); Urine White Blood Cell 1+(6-10/hpf) (Absent)
[2018-12-31 20:12] VITALS: BP 0/0
--- NOTE | 2019-01-01 18:19 | PN ---
Progress Note - Progress Note Date of Service: 12/31/18 Note: Pt. received in sign out from Sangeetha Arias. U/A nitrate positive. Pt. re- examined. She is resting comfortably and feels well. Pt. eager to be dc home. Will treat with bactrim based on previous cultures. To f.u with PCP. Tylenol or Motrin for discomfort as directed. Increase fluids and rest. Will return to ER if symptoms change or worsen.
--- NOTE | 2019-01-02 05:56 | PN ---
Progress Note - Progress Note Date of Service: 12/31/18 Note: Urine culture preliminary grew gram-negative bacilli 100,000 Patient was put on Bactrim prior to discharge We will await sensitivities and change medications if needed Patient was denying any symptoms at the time and remained afebrile
--- NOTE | 2019-01-03 06:47 | PN ---
Progress Note - Progress Note Date of Service: 12/31/18 Note: Urine culture final grew Klebsiella pneumonia 100,000 Patient was put on Bactrim prior to discharge This is sensitive to organism
== END | disposition home or self-care (01) ==
LOC: ED 16:10
DX: F10.10 Alcohol abuse, uncomplicated (principal); Z87.891 Personal history of nicotine dependence; Z88.0 Allergy status to penicillin
CPT/HCPCS: 36415; 80053; 80320; 81003; 81015; 83605; 84484; 84702; 85025; 86140; 87077; 87086; 87186; 93005; 96361; 96374; 99285; G0480; J2405

== ENCOUNTER → 2019-02-01 19:35 | Emergency (ER) | payer MEDICAID, OTHER ==
[~2019-02-01 19:35] MED LIST changes: +Acetaminophen TAB* 325 MG PO ONE; -NS 0.9% 1000 ML** 1,000 ML IV ONE; +Naproxen TAB* 250 MG PO ONE; -Ondansetron INJ* 2 MG/ML VIAL IV ONE; -Sulfamethox/Trimethoprim DS 800/160* TAB PO ONE
--- NOTE | 2019-02-01 21:57 | ED ---
Lower Extremity - HPI Summary HPI Summary: 23-year-old female who is 6 weeks presents with complaints of left knee pain. States that around 3:00 this afternoon she felt a pop in her knee. Initially had no pain and was able to bear weight but states she started developing progressively worsening pain in the knee and is now unable to put any weight on it without severe pain. Denies injury, bruising, swelling, numbness or tingling in the extremity. - History of Current Complaint Chief Complaint: EDExtremityLower Stated Complaint: TORE A TENDON IN LEFT KNEE PER PT Time Seen by Provider: 02/01/19 20:43 Hx Obtained From: Patient Hx Last Menstrual Period: 10/05/16 Pain Intensity: 8 - Allergies/Home Medications Allergies/Adverse Reactions: Allergies Allergy/AdvReac Type Severity Reaction Status Date / Time amoxicillin Allergy Severe Rash Verified 12/31/18 16:37 Penicillins Allergy Severe Anaphylatic Verified 12/31/18 16:37 Shock wheat Allergy Intermediate Vomiting Verified 12/31/18 16:37 hydroxyzine [From Atarax] Allergy Unknown See Comment Verified 12/31/18 16:37 lactose Allergy Unknown Abdominal Verified 12/31/18 16:37 Pain lorazepam [From Ativan] Allergy Unknown Unknown Verified 12/31/18 16:37 Reaction Details pineapple Allergy Unknown Hives Verified 12/31/18 16:37 ziprasidone [From Geodon] Allergy Unknown See Comment Verified 12/31/18 16:37 PMH/Surg Hx/FS Hx/Imm Hx Endocrine/Hematology History: Reports: Other Endocrine/Hematological Disorders - Polycystic Ovarian Syndrome Denies: Hx Anticoagulant Therapy, Hx Diabetes, Hx Thyroid Disease Cardiovascular History: Reports: Other Cardiovascular Problems/Disorders - MURMUR Denies: Hx Hypertension Respiratory History: Reports: Hx Asthma Denies: Hx Chronic Obstructive Pulmonary Disease (COPD), Hx Lung Cancer, Hx Pneumonia, Hx Pulmonary Embolism, Other Respiratory Problems/Disorders GI History: Reports: Other GI Disorders - wheat allergy and lactose intolerance Denies: Hx Gall Bladder Disease, Hx Gastrointestinal Bleed, Hx Ulcer, Hx Urosepsis History: Reports: Other Problems/Disorders - hx multiple UTIs Denies: Hx Kidney Stones, Hx Renal Disease Sensory History: Reports: Hx Contacts or Glasses Denies: Hx Hearing Aid Opthamlomology History: Reports: Hx Contacts or Glasses Neurological History: Reports: Hx Seizures, Other Neuro Impairments/Disorders - positive: epilepsy Denies: Hx Dementia, Hx Migraine, Hx Transient Ischemic Attacks (TIA) Psychiatric History: Reports: Hx Anxiety, Hx Depression, Hx Inpatient Treatment - [facility], Hx Community Mental Health Tx - [facility], [facility], Hx Substance Abuse - multiple , currently at [facility] 09/2018, Other Psychiatric Issues/Disorders - borderline personality, bipolar, PTSD Denies: Hx Attention Deficit Hyperactivity Disorder, Hx Eating Disorder, Hx Panic Disorder, Hx Post Traumatic Stress Disorder, Hx Schizophrenia, Hx Bipolar Disorder, Hx Suicide Attempt, Hx of Violent Episodes Against Others - Surgical History Surgery Procedure, Year, and Place: 07/31/17 - Immunization History Date of Tetanus Vaccine: Unk Date of Influenza Vaccine: None Infectious Disease History: No Infectious Disease History: Denies: Hx Hepatitis, Hx Human Immunodeficiency Virus (HIV), Hx of Known/ Suspected MRSA, History Other Infectious Disease, Traveled Outside the in Last 30 Days - Family History Known Family History: Positive: Unknown - Adopted, Other - Biological mother - EtOH and drug abuse - Social History Occupation: Unemployed Lives: With Family Alcohol Use: None Alcohol Amount: pt states 3x/week 6-8 drinks at a time, last intake 12/18/18 2030 per pt Hx Substance Use: Yes Substance Use Type: Reports: None Substance Use Comment - Amount & Last Used: hx of drug use, none at this time. Hx Tobacco Use: Yes Smoking Status (MU): Former Smoker Type: Cigarettes Have You Smoked in the Last Year: No Review of Systems Negative: Fever, Chills Cardiovascular: Negative Respiratory: Negative Gastrointestinal: Negative Genitourinary: Negative Musculoskeletal: Other - See HPI Skin: Negative Neurological: Negative All Other Systems Reviewed And Are Negative: Yes Physical Exam - Summary Physical Exam Summary: GENERAL APPEARANCE: Well developed, well nourished, alert and cooperative, and appears to be in no acute distress. CARDIAC: Normal S1 and S2. No S3, S4 or murmurs. Rhythm is regular. There is no peripheral edema, cyanosis or pallor. Extremities are warm and well perfused. Capillary refill is less than 2 seconds. Peripheral pulses intact. LUNGS: Clear to auscultation without rales, rhonchi, wheezing or diminished breath sounds. ABDOMEN: Positive bowel sounds. Soft, nondistended, nontender. No guarding or rebound. No masses or hepatosplenomegally. MUSKULOSKELETAL: Normal muscular development. Patient refusing to bear weight d/ t pain. EXTREMITIES: Subpetellar tenderness of the left knee without gross deformity, ecchymosis, erythema, or edema. No laxity. Full passive ROM with complaints of pain with both flexion and extension. No crepitus. SKIN: Skin normal color, texture and turgor with no lesions or eruptions. Triage Information Reviewed: Yes Vital Signs On Initial Exam: Initial Vitals Temp Pulse Resp BP Pulse Ox 99.1 F 105 18 113/69 98 02/01/19 19:37 02/01/19 19:37 02/01/19 19:37 02/01/19 19:37 02/01/19 19:37 Vital Signs Reviewed: Yes Diagnostics - Vital Signs Vital Signs Temp Pulse Resp BP Pulse Ox 02/01/19 19:37 99.1 F 105 18 113/69 98 - Laboratory Lab Statement: Any lab studies that have been ordered have been reviewed, and results considered in the medical decision making process. Lower Extremity Course/Dx - Course Course Of Treatment: 23-year-old female who is 6 weeks presents with complaints of left knee pain. States that around 3:00 this afternoon she felt a pop in her knee. Initially had no pain and was able to bear weight but states she started developing progressively worsening pain in the knee and is now unable to put any weight on it without severe pain. Denies injury, bruising , swelling, numbness or tingling in the extremity. Afebrile. Vital signs stable. Patient had Subpetellar tenderness of the left knee without gross deformity, ecchymosis, erythema, or edema. No laxity. Full passive ROM with complaints of pain with both flexion and extension. No crepitus. Circulation and sensation were intact. Remainder of exam was unremarkable. X-ray of the knee was negative. She was given a dose of acetaminophen in the ER for pain. Recommending [id number] acetaminophen as needed for pain, Rico wrap to the knee and crutches with progressive weightbearing as well as RICE. She is to follow-up with the orthopedic surgeon in 5-7 days if symptoms do not improve. Anticipatory guidance and warning symptoms were reviewed with the patient. Verbalizes understanding and agrees with plan of care. - Diagnoses Differential Diagnosis/HQI/PQRI: Positive: Fracture (Closed), Sprain, Tendonitis Provider Diagnoses: Acute pain of left knee Discharge - Sign-Out/Discharge Documenting (check all that apply): Patient Departure Patient Received Moderate/Deep Sedation with Procedure: No - Discharge Plan Condition: Stable Disposition: HOME Patient Education Materials: Knee Pain (ED) Referrals: No Primary Care Phys,NOPCP [Primary Care Provider] - Rickey Thompson MD [Medical Doctor] - (Follow up in 5-7 days if no improvement. Call for appointment.) Additional Instructions: The x-ray performed in the clinic today showed no evidence of a fracture. Rest the knee as much as possible. You may walk and bear weight as tolerated. Use the crutches provided to progressively increase the amount of weight you can bear. Apply ice to the affected area for 15-20 minutes at least 4 times a day to help with the pain and swelling. Use the IRCO wrap to help reduce any swelling. Elevate the leg to help reduce swelling. Take acetaminophen (Tylenol) according to directions as needed for pain. Follow up with orthopedic surgery in 5-7 days if symptoms do not improve. Call for appointment. Seek immediate medical attention if you have severe pain not managed with pain medication, you are unable to walk or bear any weight, develop numbness or tingling in the foot or toes, or have any worsening of symptoms. - Billing Disposition and Condition Condition: STABLE Disposition: Home
[2019-02-01 22:22] VITALS: BP 113/67
== END | disposition home or self-care (01) ==
LOC: ED 19:35
DX: O26.891 Other specified pregnancy related conditions, first trimester (principal); Z3A.01 Less than 8 weeks gestation of pregnancy; M25.562 Pain in left knee; Z88.0 Allergy status to penicillin; Z88.8 Allergy status to other drugs, medicaments and biological substances; Z91.018 Allergy to other foods; Z87.891 Personal history of nicotine dependence
CPT/HCPCS: 99282; A9270-GY

== ENCOUNTER 2019-02-05 15:00 | Emergency (ER) | payer OTHER ==
[2019-02-05] MEDS ORDERED: Ondansetron INJ* 2 MG/ML VIAL IV ONE (15:49)
[2019-02-05] MEDS ORDERED: NS 0.9% 1000 ML** 1,000 ML IV ONE (15:49)
--- NOTE | 2019-02-05 15:51 | ED ---
GI/ HPI - HPI Summary HPI Summary: This patient is a 23 year old F presenting to ED with a chief complaint of morning sickness starting this morning. Last known menstrual period is unknown. Patient states she is 6 weeks . Patient threw up both breakfast and lunch. She threw up once in between that. Drinking water did not help. Patient has not eaten anything today. The patient rates the pain 2/10 in severity. Symptoms aggravated by nothing. Symptoms alleviated by nothing. Patient reports N/V since this morning, pelvic pain. Patient denies vaginal bleeding. Patient has 3 children at home. She had a for her last . Patient used to drink alcohol and smoke tobacco, but she does not use substances. PMHx of asthma , epilepsy, but she is not taking medication. - History of Current Complaint Chief Complaint: EDOBProblems Time Seen by Provider: 02/05/19 15:20 Stated Complaint: "6 WKS PREG UNABLE TO KEEP FOOD DOWN PER PT" Hx Obtained From: Patient Hx Last Menstrual Period: Unknown Onset/Duration: Started Hours Ago - This morning, Still Present Timing: Constant Current Severity: Mild Pain Intensity: 2 Location of Pain: Other - Pelvic Associated Signs and Symptoms: Positive: Negative - Vaginal bleeding, Nausea, Vomiting, Abdominal Pain Additional Signs & Symptoms: Negative: Vaginal Bleeding Aggravating Factor(s): Nothing Alleviating Factor(s): Nothing - Additional Pertinent History Primary Care Physician: [id number] - Allergy/Home Medications Allergies/Adverse Reactions: Allergies Allergy/AdvReac Type Severity Reaction Status Date / Time amoxicillin Allergy Severe Rash Verified 02/05/19 15:06 Penicillins Allergy Severe Anaphylatic Verified 02/05/19 15:06 Shock wheat Allergy Intermediate Vomiting Verified 02/05/19 15:06 hydroxyzine [From Atarax] Allergy Unknown See Comment Verified 02/05/19 15:06 lactose Allergy Unknown Abdominal Verified 02/05/19 15:06 Pain lorazepam [From Ativan] Allergy Unknown Unknown Verified 02/05/19 15:06 Reaction Details pineapple Allergy Unknown Hives Verified 02/05/19 15:06 ziprasidone [From Geodon] Allergy Unknown See Comment Verified 02/05/19 15:06 Home Medications: Home Medications Prenat Vit 17/Iron/Folic/Om3,6 [Elite-Ob 400] 1 cap PO DAILY 02/05/19 [History Confirmed 02/05/19] PMH/Surg Hx/FS Hx/Imm Hx Endocrine/Hematology History: Reports: Other Endocrine/Hematological Disorders - Polycystic Ovarian Syndrome Denies: Hx Anticoagulant Therapy, Hx Diabetes, Hx Thyroid Disease Cardiovascular History: Reports: Other Cardiovascular Problems/Disorders - MURMUR Denies: Hx Hypertension Respiratory History: Reports: Hx Asthma Denies: Hx Chronic Obstructive Pulmonary Disease (COPD), Hx Lung Cancer, Hx Pneumonia, Hx Pulmonary Embolism, Other Respiratory Problems/Disorders GI History: Reports: Other GI Disorders - wheat allergy and lactose intolerance Denies: Hx Gall Bladder Disease, Hx Gastrointestinal Bleed, Hx Ulcer, Hx Urosepsis History: Reports: Other Problems/Disorders - hx multiple UTIs Denies: Hx Kidney Stones, Hx Renal Disease Sensory History: Reports: Hx Contacts or Glasses Denies: Hx Hearing Aid Opthamlomology History: Reports: Hx Contacts or Glasses Neurological History: Reports: Hx Seizures, Other Neuro Impairments/Disorders - positive: epilepsy Denies: Hx Dementia, Hx Migraine, Hx Transient Ischemic Attacks (TIA) Psychiatric History: Reports: Hx Anxiety, Hx Depression, Hx Inpatient Treatment - [facility], Hx Community [facility] Health Tx - [facility], [facility], Hx Substance Abuse - multiple , currently at [facility] 09/2018, Other Psychiatric Issues/Disorders - borderline personality, bipolar, PTSD Denies: Hx Attention Deficit Hyperactivity Disorder, Hx Eating Disorder, Hx Panic Disorder, Hx Post Traumatic Stress Disorder, Hx Schizophrenia, Hx Bipolar Disorder, Hx Suicide Attempt, Hx of Violent Episodes Against Others - Surgical History Surgery Procedure, Year, and Place: 07/31/17 - Immunization History Date of Tetanus Vaccine: Unk Date of Influenza Vaccine: None Infectious Disease History: No Infectious Disease History: Denies: Hx Hepatitis, Hx Human Immunodeficiency Virus (HIV), Hx of Known/ Suspected MRSA, History Other Infectious Disease, Traveled Outside the [place] in Last 30 Days - Family History Known Family History: Positive: None, Unknown - Adopted, Other - Biological mother - EtOH and drug abuse Negative: Blood Disorder - Social History Alcohol Use: Weekly Alcohol Amount: pt states 3x/week 6-8 drinks at a time, last intake 12/18/18 2030 per pt Hx Substance Use: Yes Substance Use Type: Reports: None Substance Use Comment - Amount & Last Used: hx of drug use, none at this time. Hx Tobacco Use: Yes Smoking Status (MU): Former Smoker Type: Cigarettes Have You Smoked in the Last Year: No Review of Systems Positive: Abdominal Pain, Vomiting, Nausea Genitourinary: Negative - Vaginal bleeding All Other Systems Reviewed And Are Negative: Yes Physical Exam - Summary Physical Exam Summary: Appearance: Well appearing, no pain distress Skin: warm, dry, reflects adequate perfusion Head/face: normal Eyes: EOMI, MELITA ENT: normal Neck: supple, non-tender Respiratory: CTA, breath sounds present Cardiovascular: RRR, pulses symmetrical Abdomen: tenderness in pelvic area Musculoskeletal: normal, strength/ROM intact Neuro: normal, sensory motor intact, A&Ox3 Triage Information Reviewed: Yes Vital Signs On Initial Exam: Initial Vitals Temp Pulse Resp BP Pulse Ox 97.4 F 118 18 108/72 98 02/05/19 15:03 02/05/19 15:03 02/05/19 15:03 02/05/19 15:03 02/05/19 15:03 Vital Signs Reviewed: Yes Diagnostics - Vital Signs Vital Signs Temp Pulse Resp BP Pulse Ox 02/05/19 15:03 97.4 F 118 18 108/72 98 - Laboratory Result Diagrams: 02/05/19 16:20 02/05/19 16:20 Lab Statement: Any lab studies that have been ordered have been reviewed, and results considered in the medical decision making process. - Ultrasound No standard instances Ultrasound Interpretation Completed By: Radiologist Summary of Ultrasound Findings: Transvaginal US: viable-appearing single intrauterine gestation with estimated gestational age of 7 weeks 4 days and AUA MARIXA of September 22, [address] Dr. Khan has reviewed this radiology report. Re-Evaluation - Re-Evaluation First Eval Re-Evaluation Time: 18:20 Change: Improved Comment: Discussed results with patient. Patient reports feeling better. Patient will be discharged home with dx of IUP, hyperemesis gravidarum, and UTI. She will follow-up with an OBGYN. Patient understands and agrees with this plan. GIGU Course/Dx - Course Course Of Treatment: This patient is a 23 year old F presenting to ED with a chief complaint of morning sickness starting this morning. In the ED course, patient was given fluids and Zofran. Bloodwork and UA obtained. Transvaginal US revealed viable-appearing single intrauterine gestation with estimated gestational age of 7 weeks 4 days and AUA MARIXA of September 22, 2019. I discussed results with patient, and she reports feeling better. She is hemodynamically stable and safe for discharge with dx of IUP, hyperemesis gravidarum, and UTI. Strict return precautions given and she will otherwise follow up with RAFIQ Vyas. - Diagnoses Differential Diagnoses - Female: Dehydration, , Vomiting Provider Diagnoses: UTI (urinary tract infection), Hyperemesis gravidarum, Normal IUP ( intrauterine ) on ultrasound Discharge - Sign-Out/Discharge Documenting (check all that apply): Patient Departure - Discharge Patient Received Moderate/Deep Sedation with Procedure: No - Discharge Plan Condition: Stable Disposition: HOME Prescriptions: Nitrofurantoin Monohyd/M-Cryst [Macrobid 100 mg Capsule] 100 mg PO BID #20 cap Ondansetron ODT TAB* [Zofran 4 MG Odt TAB*] 4 mg PO Q8H PRN #20 tab.odt MDD 3 PRN Reason: Vomiting Patient Education Materials: (ED), Hyperemesis Gravidarum (ED), Urinary Tract Infection in Women (ED) Referrals: Heather Goldberg MD [Medical Doctor] - 3 Days Additional Instructions: Follow-up with RAFIQ Vyas in 3 days. RETURN TO THE ER FOR WORSENING OR CHANGING SYMPTOMS. - Billing Disposition and Condition Condition: STABLE Disposition: Home - Attestation Statements Document Initiated by Megan: Yes Documenting Scribe: George Dominguez Provider For Whom Megan is Documenting (Include Credential): Wyatt Khan MD Scribe Attestation: I, George Dominguez, scribed for Wyatt Khan MD on 02/05/19 at 1836. Scribe Documentation Reviewed: Yes Provider Attestation: The documentation as recorded by the George dudley accurately reflects the service I personally performed and the decisions made by me, Wyatt Khan MD Status of Scribe Document: Viewed
[2019-02-05 16:29] LABS: ABS Lymphocytes 1.3 10^3/ul (1.0-4.8); ABS Monocytes 0.5 10^3/ul (0-0.8); ABS Neutrophils 3.1 10^3/ul (1.5-7.7); Eosinophil % 0.6 %; Hematocrit 35 % (35-47); Hemoglobin 11.4 g/dL (12.0-16.0); Lymphocyte % 26.1 %; Mean Corpuscular HGB Conc 33 g/dL (31-36); Mean Corpuscular Hemoglobin 25 pg (27-31); Mean Corpuscular Volume 77 fL (80-97); Mean Platelet Volume 9.3 fL (7.4-10.4); Nucleated Red Blood Cells % 0.2; Platelet Count 306 10^3/uL (150-450); Red Blood Count 4.52 10^6 /uL (3.70-4.87); Red Cell Distribution Width 18 % (10.5-15); White Blood Count 4.9 10^3/uL (3.5-10.8)
[2019-02-05 16:49] LABS: Albumin 4.1 g/dL (3.2-5.2); Albumin/Globulin Ratio 1.5 (1-3); BUN/Creatinine Ratio 9.8 (8-20); Calcium 9.4 mg/dL (8.6-10.3); EGFR African American 148.4 (>60); EGFR Non-African American 122.6 (>60); Globulin 2.8 g/dL (2-4); Potassium 3.6 mmol/L (3.5-5.0); Total Bilirubin 0.8 mg/dL (0.2-1.0); Total Protein 6.9 g/dL (6.4-8.9)
[2019-02-05 17:55] LABS: Urine Appearance Cloudy; Urine Bacteria 1+ (Absent); Urine Bilirubin Negative (Negative); Urine Blood Negative (Negative); Urine Color Yellow; Urine Glucose Negative (Negative); Urine Ketones 2+ (Negative); Urine Nitrite Positive (Negative); Urine Protein Negative (Negative); Urine Red Blood Cell 1+(3-5/hpf) (Absent); Urine Specific Gravity 1.018 (1.010-1.030); Urine Squamous Epithelial Cell Present (Absent); Urine Urobilinogen Negative (Negative); Urine White Blood Cell 2+(11-20/hpf) (Absent)
[2019-02-05 19:03] VITALS: BP 105/61
--- NOTE | 2019-02-07 05:49 | PN ---
Progress Note - Progress Note Date of Service: 02/05/19 Note: Urine culture Preliminary grew Citrobacter Youngae Patient was put on Macrobid prior to discharge Awaiting sensitivities
--- NOTE | 2019-02-09 15:06 | PN ---
Progress Note - Progress Note Date of Service: 02/05/19 Note: Pt. seen in ED 02/05 and started on Macrobid for UTI. Pt. in first trimester . Final urine culture growing >100k citrobacter youngae susceptible to macrobid and enterobacter that is resistant to macrobid. Pt. has numerous drug allergies including anaphylactic rxn to PNC. Given and allergies there is no safe antibiotic to switch to. Attempted to call pt. today at 1500 but her number rang busy. Attempted to call pt.'s mother listed in contacts with no answer. Will send letter to return call to ER.
== END 2019-02-05 18:45 | disposition home or self-care (01) ==
LOC: ED 15:00
DX: O23.41 Unspecified infection of urinary tract in pregnancy, first trimester (principal); B96.89 Other specified bacterial agents as the cause of diseases classified elsewhere; Z87.440 Personal history of urinary (tract) infections; O21.0 Mild hyperemesis gravidarum; R10.2 Pelvic and perineal pain; Z3A.01 Less than 8 weeks gestation of pregnancy; Z88.0 Allergy status to penicillin; Z88.8 Allergy status to other drugs, medicaments and biological substances; Z91.018 Allergy to other foods; Z87.891 Personal history of nicotine dependence
CPT/HCPCS: 36415; 76817; 80053; 81003; 81015; 84702; 85025; 86850; 86900; 86901; 87077; 87086; 87186; 96361; 96374; 99283; J2405

== ENCOUNTER 2019-02-21 14:51 | Emergency (ER) | payer OTHER ==
[2019-02-21 14:55] VITALS: BP 111/77
[2019-02-21] MEDS ORDERED: Ondansetron INJ* 2 MG/ML VIAL IV ONE (15:36)
[2019-02-21] MEDS ORDERED: NS 0.9% 1000 ML** 1,000 ML IV ONE (15:36)
--- NOTE | 2019-02-21 15:36 | ED ---
GI/ HPI - HPI Summary HPI Summary: A 23 y/o female who is 10 weeks presents to [facility] with a chief complaint of nausea since this morning. She claims that she woke up feeling nauseous, went to bed, then woke up again and started to vomit. She took Zofran but is still vomiting. This is the patients fourth and she has 3 live children at home who are 5 y/o, 2 y/o and 1 y/o. The patient claims that she only had morning sickness with one of those children. Her last ultrasound was when she was 7 weeks and 4 days , when she was last in the ED with the same symptoms. She denies any vaginal bleeding, spotting or abdominal pain. At triage the patient rated her pain as an 8/10 in severity. The patients OB is Dr. Olivia and referred her to the ED. The patient has a Hx of seizures, asthma and anemia. The patient does not drive. - History of Current Complaint Chief Complaint: EDNauseaVomitDiarrh Time Seen by Provider: 02/21/19 15:25 Stated Complaint: 10 WEEKS PREG/NAUSEA/VOMITING PER PT Hx Obtained From: Patient Hx Last Menstrual Period: Unknown Onset/Duration: Started Hours Ago, Still Present Timing: Constant, Lasting Hours Severity: Severe Current Severity: Severe Pain Intensity: 8 - out of 10 Location of Pain: Diffuse Pain Characteristics: Unable to describe Associated Signs and Symptoms: Positive: Vomiting, Other: - negative: vaginal bleeding, spotting. Negative: Abdominal Pain Additional Signs & Symptoms: Negative: Vaginal Bleeding Aggravating Factor(s): Nothing Alleviating Factor(s): Nothing - Additional Pertinent History Primary Care Physician: [id number] - Allergy/Home Medications Allergies/Adverse Reactions: Allergies Allergy/AdvReac Type Severity Reaction Status Date / Time amoxicillin Allergy Severe Rash Verified 02/21/19 14:55 Penicillins Allergy Severe Anaphylatic Verified 02/21/19 14:55 Shock hydroxyzine [From Atarax] Allergy Unknown See Comment Verified 02/21/19 14:55 lorazepam [From Ativan] Allergy Unknown Unknown Verified 02/21/19 14:55 Reaction Details ziprasidone [From Geodon] Allergy Unknown See Comment Verified 02/21/19 14:55 PMH/Surg Hx/FS Hx/Imm Hx Endocrine/Hematology History: Reports: Other Endocrine/Hematological Disorders - Polycystic Ovarian Syndrome Denies: Hx Anticoagulant Therapy, Hx Diabetes, Hx Thyroid Disease Cardiovascular History: Reports: Other Cardiovascular Problems/Disorders - MURMUR Denies: Hx Hypertension Respiratory History: Reports: Hx Asthma Denies: Hx Chronic Obstructive Pulmonary Disease (COPD), Hx Lung Cancer, Hx Pneumonia, Hx Pulmonary Embolism, Other Respiratory Problems/Disorders GI History: Reports: Other GI Disorders - wheat allergy and lactose intolerance Denies: Hx Gall Bladder Disease, Hx Gastrointestinal Bleed, Hx Ulcer, Hx Urosepsis History: Reports: Other Problems/Disorders - hx multiple UTIs Denies: Hx Kidney Stones, Hx Renal Disease Sensory History: Reports: Hx Contacts or Glasses Denies: Hx Hearing Aid Opthamlomology History: Reports: Hx Contacts or Glasses Neurological History: Reports: Hx Seizures, Other Neuro Impairments/Disorders - positive: epilepsy Denies: Hx Dementia, Hx Migraine, Hx Transient Ischemic Attacks (TIA) Psychiatric History: Reports: Hx Anxiety, Hx Depression, Hx Inpatient Treatment - [facility], Hx Community Mental Health Tx - [facility], [facility], Hx Substance Abuse - multiple , currently at [facility] 09/2018, Other Psychiatric Issues/Disorders - borderline personality, bipolar, PTSD Denies: Hx Attention Deficit Hyperactivity Disorder, Hx Eating Disorder, Hx Panic Disorder, Hx Post Traumatic Stress Disorder, Hx Schizophrenia, Hx Bipolar Disorder, Hx Suicide Attempt, Hx of Violent Episodes Against Others - Surgical History Surgery Procedure, Year, and Place: 07/31/17 - Immunization History Date of Tetanus Vaccine: Unk Date of Influenza Vaccine: None Infectious Disease History: No Infectious Disease History: Denies: Hx Hepatitis, Hx Human Immunodeficiency Virus (HIV), Hx of Known/ Suspected MRSA, History Other Infectious Disease, Traveled Outside the [place] in Last 30 Days - Family History Known Family History: Positive: Unknown - Adopted, Other - Biological mother - EtOH and drug abuse Negative: Blood Disorder - Social History Alcohol Use: Weekly Alcohol Amount: pt states 3x/week 6-8 drinks at a time, last intake 12/18/18 2030 per pt Hx Substance Use: Yes Substance Use Type: Reports: None Substance Use Comment - Amount & Last Used: hx of drug use, none at this time. Hx Tobacco Use: Yes Smoking Status (MU): Former Smoker Type: Cigarettes Have You Smoked in the Last Year: No Review of Systems Negative: Fever Positive: Vomiting, Nausea. Negative: Abdominal Pain Genitourinary: Negative - vaginal bleeding, spotting All Other Systems Reviewed And Are Negative: Yes Physical Exam - Summary Physical Exam Summary: GENERAL: Patient is a well-developed and nourished F who is lying comfortable in the stretcher. Patient is not in any acute respiratory distress. HEAD AND FACE: Normocephalic EYES: PERRLA, EOMI x 2. EARS: Hearing grossly intact. MOUTH: Oropharynx within normal limits. NECK: Supple, trachea is midline, no adenopathy, no JVD, no carotid bruit. CHEST: Symmetric, no tenderness at palpation LUNGS: Clear to auscultation bilaterally. No wheezing or crackles. CVS: Regular rate and rhythm, S1 and S2 present, no murmurs or gallops appreciated. ABDOMEN: Soft, non-tender. Bowel sounds are normal. No abnormal abdominal pulsations. EXTREMITIES: Full ROM in all major joints, no edema, no cyanosis or clubbing. NEURO: Alert and oriented x 3. No acute neurological deficits. Speech is normal and follows commands. SKIN: Dry and warm Triage Information Reviewed: Yes Vital Signs On Initial Exam: Initial Vitals Temp Pulse Resp BP Pulse Ox 98.1 F 108 16 111/77 99 02/21/19 14:53 02/21/19 14:53 02/21/19 14:53 02/21/19 14:53 02/21/19 14:53 Vital Signs Reviewed: Yes Diagnostics - Vital Signs Vital Signs Temp Pulse Resp BP Pulse Ox 02/21/19 14:53 98.1 F 108 16 111/77 99 - Laboratory Result Diagrams: 02/21/19 15:41 02/21/19 15:41 Lab Statement: Any lab studies that have been ordered have been reviewed, and results considered in the medical decision making process. Re-Evaluation - Re-Evaluation First Eval Re-Evaluation Time: 16:11 Change: Unchanged Comment: good heart tone visualized on bedside monitor GIGU Course/Dx - Course Course Of Treatment: A 23 y/o female who is 10 weeks presents to [facility] with a chief complaint of nausea since this morning. The physical exam was unremarkable. Good heart tone was visualized on monitor. Patient had not given urine sample. She has not had a UTI since the end of January and she was treated with Macrobid. Reviewed previous urine culture and based on sensitivity I switiced the patient to cefdinir. She will follow up with her PCP and is feeling much better. The patient will be discharged. I discussed results with patient, and she reports feeling better. She is hemodynamically stable and safe for discharge. Strict return precautions given and she will otherwise follow up with her PCP. - Diagnoses Provider Diagnoses: Vomiting, Nausea, Discharge - Sign-Out/Discharge Documenting (check all that apply): Patient Departure - DC Patient Received Moderate/Deep Sedation with Procedure: No - Discharge Plan Condition: Stable Disposition: HOME Prescriptions: Cefdinir [Cefdinir 300 MG CAP] 300 mg PO BID #14 capsule Patient Education Materials: Nausea and Vomiting in (ED) Referrals: [facility]FERR[facility] [Outside] (1-3 days) Additional Instructions: Follow up with your primary care physician in 1-3 days. RETURN TO THE EMERGENCY DEPARTMENT FOR CHANGING OR WORSENING SYMPTOMS. - Billing Disposition and Condition Condition: STABLE Disposition: Home - Attestation Statements Document Initiated by Megan: Yes Documenting Scribe: Amaury Frankel Provider For Whom Scribe is Documenting (Include Credential): Brando Lomax MD Scribe Attestation: IAmaury, scribed for Brando Lomax MD on 02/21/19 at 1726. Scribe Documentation Reviewed: Yes Provider Attestation: The documentation as recorded by the Amaury dudley accurately reflects the service I personally performed and the decisions made by , Patrica Lomax MD Status of Scribe Document: Viewed
[2019-02-21 15:47] LABS: ABS Lymphocytes 1.2 10^3/ul (1.0-4.8); ABS Monocytes 0.5 10^3/ul (0-0.8); ABS Neutrophils 4.5 10^3/ul (1.5-7.7); Eosinophil % 0.6 %; Hematocrit 35 % (35-47); Hemoglobin 11.5 g/dL (12.0-16.0); Lymphocyte % 19.6 %; Mean Corpuscular HGB Conc 33 g/dL (31-36); Mean Corpuscular Hemoglobin 25 pg (27-31); Mean Corpuscular Volume 77 fL (80-97); Mean Platelet Volume 9.1 fL (7.4-10.4); Platelet Count 253 10^3/uL (150-450); Red Blood Count 4.58 10^6 /uL (3.70-4.87); Red Cell Distribution Width 16 % (10-15); White Blood Count 6.2 10^3/uL (3.5-10.8)
[2019-02-21 16:10] LABS: Albumin 3.9 g/dL (3.2-5.2); Albumin/Globulin Ratio 1.4 (1-3); BUN/Creatinine Ratio 11.5 (8-20); Calcium 9.6 mg/dL (8.6-10.3); EGFR African American 178.4 (>60); EGFR Non-African American 147.5 (>60); Globulin 2.8 g/dL (2-4); Potassium 3.8 mmol/L (3.5-5.0); Total Bilirubin 0.7 mg/dL (0.2-1.0); Total Protein 6.7 g/dL (6.4-8.9)
== END 2019-02-21 17:11 | disposition home or self-care (01) ==
LOC: ED 14:51
DX: O21.0 Mild hyperemesis gravidarum (principal); Z87.891 Personal history of nicotine dependence; Z3A.10 10 weeks gestation of pregnancy
CPT/HCPCS: 36415; 80053; 85025; 96361; 96374; 99282; J2405

== ENCOUNTER 2019-03-02 11:28 | Emergency (ER) | payer OTHER ==
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
[2019-03-02 13:44] VITALS: BP 116/77
== END 2019-03-02 13:40 | disposition home or self-care (01) ==
LOC: ED 11:28
DX: Z65.4 Victim of crime and terrorism (principal); Z87.891 Personal history of nicotine dependence; Z34.81 Encounter for supervision of other normal pregnancy, first trimester; Z3A.10 10 weeks gestation of pregnancy; Y04.8XXA Assault by other bodily force, initial encounter
CPT/HCPCS: 76815; 99282

== ENCOUNTER → 2019-03-27 16:35 | Emergency (ER) | payer OTHER ==
--- NOTE | 2019-03-27 17:10 | ED ---
Lower Extremity - HPI Summary HPI Summary: Patient with history of 14 weeks complains of pain to right knee 1.5 weeks. Denies trauma, states she woke up with pain and has been getting worse since. Tylenol provides minimal relief. Patient states he had history of same with prior and was told that she produces a lot of relaxin during . Denies any other pain injury or symptoms. - History of Current Complaint Chief Complaint: EDExtremityLower Stated Complaint: I THINK I PULLED A TENDON IN MY KNEE PER PT Time Seen by Provider: 03/27/19 16:54 Hx Obtained From: Patient Hx Last Menstrual Period: Unknown Mechanism Of Injury: Unknown Onset of Pain: Days Onset/Duration: Weeks Severity Initially: Moderate Severity Currently: Moderate Pain Intensity: 7 Pain Scale Used: 0-10 Numeric Timing: Intermittent Location: Is Discrete @ Character Of Pain: Aching, Throbbing Associated Signs And Symptoms: Positive: Negative Aggravating Factor(s): Standing, Ambulation, Weight Bearing Alleviating Factor(s): Rest, Elevation Able to Bear Weight: Yes - Allergies/Home Medications Allergies/Adverse Reactions: Allergies Allergy/AdvReac Type Severity Reaction Status Date / Time amoxicillin Allergy Severe Rash Verified 02/21/19 14:55 Penicillins Allergy Severe Anaphylatic Verified 02/21/19 14:55 Shock hydroxyzine [From Atarax] Allergy Unknown See Comment Verified 02/21/19 14:55 lorazepam [From Ativan] Allergy Unknown Unknown Verified 02/21/19 14:55 Reaction Details ziprasidone [From Geodon] Allergy Unknown See Comment Verified 02/21/19 14:55 PMH/Surg Hx/FS Hx/Imm Hx Endocrine/Hematology History: Reports: Other Endocrine/Hematological Disorders - Polycystic Ovarian Syndrome Denies: Hx Anticoagulant Therapy, Hx Diabetes, Hx Thyroid Disease Cardiovascular History: Reports: Other Cardiovascular Problems/Disorders - MURMUR Denies: Hx Hypertension Respiratory History: Reports: Hx Asthma Denies: Hx Chronic Obstructive Pulmonary Disease (COPD), Hx Lung Cancer, Hx Pneumonia, Hx Pulmonary Embolism, Other Respiratory Problems/Disorders GI History: Reports: Other GI Disorders - wheat allergy and lactose intolerance Denies: Hx Gall Bladder Disease, Hx Gastrointestinal Bleed, Hx Ulcer, Hx Urosepsis History: Reports: Other Problems/Disorders - hx multiple UTIs Denies: Hx Kidney Stones, Hx Renal Disease Sensory History: Reports: Hx Contacts or Glasses Denies: Hx Hearing Aid Opthamlomology History: Reports: Hx Contacts or Glasses Neurological History: Reports: Hx Seizures, Other Neuro Impairments/Disorders - positive: epilepsy Denies: Hx Dementia, Hx Migraine, Hx Transient Ischemic Attacks (TIA) Psychiatric History: Reports: Hx Anxiety, Hx Depression, Hx Inpatient Treatment - [facility], Hx Community Mental Health Tx - [facility], [facility], Hx Substance Abuse - multiple , currently at [facility] 09/2018, Other Psychiatric Issues/Disorders - borderline personality, bipolar, PTSD Denies: Hx Attention Deficit Hyperactivity Disorder, Hx Eating Disorder, Hx Panic Disorder, Hx Post Traumatic Stress Disorder, Hx Schizophrenia, Hx Bipolar Disorder, Hx Suicide Attempt, Hx of Violent Episodes Against Others - Surgical History Surgery Procedure, Year, and Place: 07/31/17 - Immunization History Date of Tetanus Vaccine: Unk Date of Influenza Vaccine: None Infectious Disease History: No Infectious Disease History: Denies: Hx Hepatitis, Hx Human Immunodeficiency Virus (HIV), Hx of Known/ Suspected MRSA, History Other Infectious Disease, Traveled Outside the in Last 30 Days - Family History Known Family History: Positive: None, Unknown - Adopted, Other - Biological mother - EtOH and drug abuse Negative: Blood Disorder - Social History Alcohol Use: Weekly Alcohol Amount: pt states 3x/week 6-8 drinks at a time, last intake 12/18/18 2030 per pt Hx Substance Use: Yes Substance Use Type: Reports: None Substance Use Comment - Amount & Last Used: hx of drug use, none at this time. Hx Tobacco Use: Yes Smoking Status (MU): Former Smoker Type: Cigarettes Have You Smoked in the Last Year: No Review of Systems Constitutional: Negative Eyes: Negative ENT: Negative Cardiovascular: Negative Respiratory: Negative Gastrointestinal: Negative Genitourinary: Negative Musculoskeletal: Other Skin: Negative Neurological: Negative Psychological: Normal All Other Systems Reviewed And Are Negative: Yes Physical Exam - Summary Physical Exam Summary: No erythema, ecchymosis, deformity, swelling noted to right knee. Full range of motion of right knee. Tenderness over sub patellar area otherwise normal exam of the knee. Triage Information Reviewed: Yes Vital Signs On Initial Exam: Initial Vitals Temp Pulse Resp BP Pulse Ox 98.8 F 96 18 128/79 99 03/27/19 16:38 03/27/19 16:38 03/27/19 16:38 03/27/19 16:38 03/27/19 16:38 Vital Signs Reviewed: Yes Appearance: Positive: Well-Appearing Skin: Positive: Warm Head/Face: Positive: Normal Head/Face Inspection Eyes: Positive: Normal Neck: Positive: Supple Respiratory/Lung Sounds: Positive: Clear to Auscultation Cardiovascular: Positive: Normal Abdomen Description: Positive: Nontender Musculoskeletal: Positive: Normal Neurological: Positive: Normal Psychiatric: Positive: Normal AVPU Assessment: Alert - Senia Coma Scale Best Eye Response: 4 - Spontaneous Best Motor Response: 6 - Obeys Commands Best Verbal Response: 5 - Oriented Coma Scale Total: 15 Diagnostics - Vital Signs Vital Signs Temp Pulse Resp BP Pulse Ox 03/27/19 16:38 98.8 F 96 18 128/79 99 - Laboratory Lab Statement: Any lab studies that have been ordered have been reviewed, and results considered in the medical decision making process. Lower Extremity Course/Dx - Course Course Of Treatment: Patient with history of 14 weeks complains of pain to right knee 1.5 weeks. Denies trauma, states she woke up with pain and has been getting worse since. Tylenol provides minimal relief. Patient states he had history of same with prior and was told that she produces a lot of relaxin during . Denies any other pain injury or symptoms. Vital signs within normal limits. Physical exam and history suggests no indication for imaging. Rico wrap to right knee administered. Patient advised to try ice and continue with Tylenol and to purchase knee brace from pharmacy. Patient provided with crutches. - Diagnoses Provider Diagnoses: Tendonitis of knee, right Discharge - Sign-Out/Discharge Documenting (check all that apply): Patient Departure Patient Received Moderate/Deep Sedation with Procedure: No - Discharge Plan Condition: Stable Disposition: HOME Patient Education Materials: Patellar Tendinitis (ED) Referrals: Noemi Lewis CNM [Primary Care Provider] - Letha Meeks MD [Medical Doctor] - Additional Instructions: Tylenol for pain. Ice right knee for 15 minutes at a time several times over the day. A neoprene knee brace would help. Use crutches to help rest right knee. Follow-up with orthopedics Dr. Meeks if symptoms persist more than 10 days. - Billing Disposition and Condition Condition: STABLE Disposition: Home
[2019-03-27 17:33] VITALS: BP 118/66
== END | disposition home or self-care (01) ==
LOC: ED 16:35
DX: O26.892 Other specified pregnancy related conditions, second trimester (principal); M76.51 Patellar tendinitis, right knee; Z3A.14 14 weeks gestation of pregnancy; Z88.0 Allergy status to penicillin; Z88.8 Allergy status to other drugs, medicaments and biological substances; Z87.891 Personal history of nicotine dependence
CPT/HCPCS: 99282

== ENCOUNTER 2019-04-23 16:15 | Emergency (ER) | payer OTHER ==
[2019-04-23] MEDS ORDERED: Acetaminophen TAB* 325 MG PO ONE (17:07)
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
[2019-04-23 17:16] LABS: ABS Eosinophils 0.1 10^3/ul (0-0.6); ABS Lymphocytes 1.9 10^3/ul (1.0-4.8); ABS Monocytes 0.6 10^3/ul (0-0.8); ABS Neutrophils 5.1 10^3/ul (1.5-7.7); Eosinophil % 1.1 %; Hematocrit 34 % (35-47); Hemoglobin 11.5 g/dL (12.0-16.0); Lymphocyte % 24.6 %; Mean Corpuscular HGB Conc 34 g/dL (31-36); Mean Corpuscular Hemoglobin 26 pg (27-31); Mean Corpuscular Volume 76 fL (80-97); Platelet Count 274 10^3/uL (150-450); Red Blood Count 4.49 10^6 /uL (3.70-4.87); Red Cell Distribution Width 16 % (10-15); White Blood Count 7.8 10^3/uL (3.5-10.8)
[2019-04-23 17:24] LABS: Activated Partial Thrombo Time 29.6 seconds (26.0-38.0); INR 0.93 (0.82-1.09)
[2019-04-23 17:32] LABS: Urine Appearance Turbid; Urine Bacteria 1+ (Absent); Urine Bilirubin Negative (Negative); Urine Blood Negative (Negative); Urine Color Yellow; Urine Glucose Negative (Negative); Urine Ketones Negative (Negative); Urine Nitrite Positive (Negative); Urine Protein Negative (Negative); Urine Red Blood Cell Trace(0-2/hpf) (Absent); Urine Specific Gravity 1.015 (1.010-1.030); Urine Squamous Epithelial Cell Present (Absent); Urine Urobilinogen Negative (Negative); Urine White Blood Cell 3+(>20/hpf) (Absent)
[2019-04-23 17:32] LABS: Albumin 3.8 g/dL (3.2-5.2); Albumin/Globulin Ratio 1.4 (1-3); BUN/Creatinine Ratio 11.3 (8-20); EGFR African American 174.5 (>60); EGFR Non-African American 144.2 (>60); Globulin 2.8 g/dL (2-4); Potassium 3.6 mmol/L (3.5-5.0); Total Bilirubin 0.4 mg/dL (0.2-1.0); Total Protein 6.6 g/dL (6.4-8.9)
[2019-04-23] MEDS ORDERED: cefTRIAXone(*) 1 GM in NS 0.9% 50 ML* 50 ML IVPB ONE (17:57)
[2019-04-23] MEDS ORDERED: NS 0.9% 1000 ML** 1,000 ML IV ONE (17:57)
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
[2019-04-23] MEDS ORDERED: Nitrofurantoin Macrocrystals* 100 MG CAP PO ONE (20:42)
[2019-04-23 21:31] VITALS: BP 114/77
--- NOTE | 2019-04-25 06:18 | PN ---
Progress Note - Progress Note Date of Service: 04/25/19 Note: Patient's urine culture grew Proteus greater than 100,000. Patient placed on Macrobid. Will wait for final culture for sensitivity.
--- NOTE | 2019-04-26 05:50 | PN ---
Progress Note - Progress Note Date of Service: 04/26/19 Note: patient placed on macrobid which is not sensitive to. sent script for bactrim DS bidx5 days. left vm
== END 2019-04-23 21:25 | disposition home or self-care (01) ==
LOC: ED 16:15
DX: O23.42 Unspecified infection of urinary tract in pregnancy, second trimester (principal); B96.4 Proteus (mirabilis) (morganii) as the cause of diseases classified elsewhere; Z87.440 Personal history of urinary (tract) infections; Z3A.18 18 weeks gestation of pregnancy; V47.0XXA Car driver injured in collision with fixed or stationary object in nontraffic accident, initial encounter; Y92.481 Parking lot as the place of occurrence of the external cause; Z88.0 Allergy status to penicillin; Z88.8 Allergy status to other drugs, medicaments and biological substances; Z87.891 Personal history of nicotine dependence
CPT/HCPCS: 36415; 76700; 76815; 80053; 81003; 81015; 83020; 83021; 83030; 83605; 83690; 85025; 85610; 85730; 87077; 87086; 87186; 96361; 96365; 99283; A9270-GY; J0696

== ENCOUNTER 2019-05-19 09:27 | Emergency (ER) | payer SELFPAY ==
[2019-05-19 09:38] VITALS: BP 108/63
--- NOTE | 2019-05-19 09:48 | UC ---
Hand/Wrist HPI - HPI Summary HPI Summary: 23 yo female presents with LEFT thumb injury. She tells me that 2 nights ago she was play wrestling with her boyfriend and jammed her left thumb against a door frame. [place] a pop and had immediate pain. She iced the area and pain subsided and was resolved for 1 day. Last night she grabbed a milkshake with her left hand and gripped the cup - felt another pop in her left thumb and had immediate pain. Area has been painful since that time. She is right handed. Denies numbness or tingling. - History Of Current Complaint Chief Complaint: UCUpperExtremity Stated Complaint: FINGER INJURY Time Seen by Provider: 05/19/19 09:48 Hx Obtained From: Patient Hx Last Menstrual Period: Unknown ?: Yes Onset/Duration: Sudden Onset Severity Initially: Moderate Severity Currently: Moderate Pain Intensity: 7 Pain Scale Used: 0-10 Numeric - Allergies/Home Medications Allergies/Adverse Reactions: Allergies Allergy/AdvReac Type Severity Reaction Status Date / Time amoxicillin Allergy Severe Rash Verified 02/21/19 14:55 Penicillins Allergy Severe Anaphylatic Verified 02/21/19 14:55 Shock hydroxyzine [From Atarax] Allergy Unknown See Comment Verified 02/21/19 14:55 lorazepam [From Ativan] Allergy Unknown Unknown Verified 02/21/19 14:55 Reaction Details ziprasidone [From Geodon] Allergy Unknown See Comment Verified 02/21/19 14:55 PMH/Surg Hx/FS Hx/Imm Hx Psychological History: Anxiety, Depression Other History Of: Negative For: HIV, Hepatitis B, Hepatitis C, Anticoagulant Therapy - Surgical History Surgical History: Yes Surgery Procedure, Year, and Place: 07/31/17 - Family History Known Family History: Positive: Unknown - Adopted, Other - Biological mother - EtOH and drug abuse Negative: Blood Disorder - Social History Alcohol Use: None Alcohol Amount: pt states 3x/week 6-8 drinks at a time, last intake 12/18/18 2030 per pt Substance Use Type: None Substance Use Comment - Amount & Last Used: hx of drug use, none at this time. Smoking Status (MU): Former Smoker Type: Cigarettes Have You Smoked in the Last Year: No When Did the Patient Quit Smoking/Using Tobacco: age 18 - Immunization History Most Recent Influenza Vaccination: Fall 2015 Most Recent Tetanus Shot: 06/18/2016 Most Recent Pneumonia Vaccination: never Review of Systems All Other Systems Reviewed And Are Negative: No Constitutional: Positive: Negative Skin: Positive: Negative Respiratory: Positive: Negative Cardiovascular: Positive: Negative Neurovascular: Positive: Negative Musculoskeletal: Positive: Other: - Left thumb pain Neurological: Positive: Negative Psychological: Positive: Negative Physical Exam - Summary Physical Exam Summary: GENERAL: NAD. WDWN. No pain distress. SKIN: No rashes, sores, lesions, or open wounds. CHEST: No accessory muscle use. Breathing comfortably and in no distress. CV: Pulses intact radial and ulnar. Cap refill <2seconds MSK: LEFT THUMB: Unable to flex as IP due to pain. TTP as ulnar aspect of IP. No MCP or CMC pain. No snuffbox tenderness. NEURO: Alert. Sensations intact hand and all fingers. PSYCH: Age appropriate behavior. Triage Information Reviewed: Yes Vital Signs: Initial Vital Signs Temp 97.5 F 05/19/19 09:35 Pulse 85 05/19/19 09:35 Resp 16 05/19/19 09:35 BP 108/63 05/19/19 09:35 Pulse Ox 100 05/19/19 09:35 Vital Signs Reviewed: Yes Diagnostics - Radiology XR\ Radiology Interpretation Completed By: Radiologist Summary of Radiographic Findings: REPORT AND IMPRESSION: #. Subtle cortical and trabecular irregularity at the proximal metaphysis of the distal phalanx new compared with the 2016 exam suspicious for a minimal impaction fracture given the clinical context. #. Normal articular alignment and preserved joint spaces. #. Mild fusiform soft tissue tissue swelling. Hand/Wrist Course/Dx - Course Course Of Treatment: XR indicates likely fx that is consistent with clinical exam. Pt placed in a thumb spica splint and advised to RICE and f/u with Orthopedics within 1 week for further eval. - Differential Dx/Diagnosis Provider Diagnosis: Nondisplaced fracture of phalanx of left thumb Discharge ED - Sign-Out/Discharge Documenting (check all that apply): Patient Departure All imaging exams completed and their final reports reviewed: Yes - Discharge Plan Condition: Stable Disposition: HOME Patient Education Materials: Thumb Fracture (ED) Referrals: Noemi Lewis CNM [Primary Care Provider] - Sean Guerrero MD [Medical Doctor] - As Soon As Possible Additional Instructions: If you develop a fever, shortness of breath, chest pain, new or worsening symptoms - please call your PCP or go to the ED immediately. 1) Rest, Ice, and elevate your hand/thumb to reduce pain and swelling 2) Use the thumb spica splint as much as possible 3) Please call Orthopedics at the number below to schedule an appointment for next week for a recheck - Billing Disposition and Condition Condition: STABLE Disposition: Home
== END 2019-05-19 10:38 | disposition home or self-care (01) ==
LOC: UCEAST 09:27
DX: S62.502A Fracture of unspecified phalanx of left thumb, initial encounter for closed fracture (principal); W23.0XXA Caught, crushed, jammed, or pinched between moving objects, initial encounter; Y92.019 Unspecified place in single-family (private) house as the place of occurrence of the external cause; F41.9 Anxiety disorder, unspecified; F32.9 Major depressive disorder, single episode, unspecified; Z88.0 Allergy status to penicillin
CPT/HCPCS: 99212; G0463

== ENCOUNTER 2019-05-22 15:42 | Emergency (ER) | payer SELFPAY ==
[2019-05-22 15:46] VITALS: BP 115/73
--- NOTE | 2019-05-22 16:02 | ED ---
Upper Extremity Pain - HPI Summary HPI Summary: This patient is a 24 year old female presenting to [facility] with a chief complaint of left thumb problems. She fractured her thumb 3 days ago and was given a splint at [facility] that she states is too small. She states she is losing circulation and it is bruising her. She is requesting a bigger splint after consulting the orthopedic surgeon over the phone. Pt denies any fever, chills, erythema of eyes, sore throat, CP, SOB, cough, abdominal pain, N/V, dysuria, hematuria, myalgia, edema, rash, or dizziness. - History of Current Complaint Chief Complaint: EDExtremityUpper Stated Complaint: NEEDS NEW WRIST BRACE PER PT Time Seen by Provider: 05/22/19 15:52 Hx Obtained From: Patient Hx Last Menstrual Period: Unknown Onset/Duration: Started Days Ago Pain Location: Finger - Allergies/Home Medications Allergies/Adverse Reactions: Allergies Allergy/AdvReac Type Severity Reaction Status Date / Time amoxicillin Allergy Severe Rash Verified 05/22/19 15:47 Penicillins Allergy Severe Anaphylatic Verified 05/22/19 15:47 Shock hydroxyzine [From Atarax] Allergy Unknown See Comment Verified 05/22/19 15:47 lorazepam [From Ativan] Allergy Unknown Unknown Verified 05/22/19 15:47 Reaction Details ziprasidone [From Geodon] Allergy Unknown See Comment Verified 05/22/19 15:47 PMH/Surg Hx/FS Hx/Imm Hx Endocrine/Hematology History: Reports: Other Endocrine/Hematological Disorders - Polycystic Ovarian Syndrome Denies: Hx Anticoagulant Therapy, Hx Diabetes, Hx Thyroid Disease Cardiovascular History: Reports: Other Cardiovascular Problems/Disorders - MURMUR Denies: Hx Hypertension Respiratory History: Reports: Hx Asthma Denies: Hx Chronic Obstructive Pulmonary Disease (COPD), Hx Lung Cancer, Hx Pneumonia, Hx Pulmonary Embolism, Other Respiratory Problems/Disorders GI History: Reports: Other GI Disorders - wheat allergy and lactose intolerance Denies: Hx Gall Bladder Disease, Hx Gastrointestinal Bleed, Hx Ulcer, Hx Urosepsis History: Reports: Other Problems/Disorders - hx multiple UTIs Denies: Hx Kidney Stones, Hx Renal Disease Sensory History: Reports: Hx Contacts or Glasses Denies: Hx Hearing Aid Opthamlomology History: Reports: Hx Contacts or Glasses Neurological History: Reports: Hx Seizures, Other Neuro Impairments/Disorders - positive: epilepsy Denies: Hx Dementia, Hx Migraine, Hx Transient Ischemic Attacks (TIA) Psychiatric History: Reports: Hx Anxiety, Hx Depression, Hx Inpatient Treatment - [facility], Hx Community [facility] Health Tx - [facility], [facility], Hx Substance Abuse - multiple , currently at [facility] 09/2018, Other Psychiatric Issues/Disorders - borderline personality, bipolar, PTSD Denies: Hx Attention Deficit Hyperactivity Disorder, Hx Eating Disorder, Hx Panic Disorder, Hx Post Traumatic Stress Disorder, Hx Schizophrenia, Hx Bipolar Disorder, Hx Suicide Attempt, Hx of Violent Episodes Against Others - Cancer History Cancer Type, Location and Year: epilepsy scoliosis - Surgical History Surgery Procedure, Year, and Place: 07/31/17 - Immunization History Date of Tetanus Vaccine: Unk Date of Influenza Vaccine: None Infectious Disease History: No Infectious Disease History: Denies: Hx Hepatitis, Hx Human Immunodeficiency Virus (HIV), Hx of Known/ Suspected MRSA, History Other Infectious Disease, Traveled Outside the [place] in Last 30 Days - Family History Known Family History: Positive: Other - Biological mother - EtOH and drug abuse Negative: Blood Disorder - Social History Alcohol Use: None Alcohol Amount: pt states 3x/week 6-8 drinks at a time, last intake 12/18/18 2030 per pt Hx Substance Use: Yes Substance Use Type: Reports: None Substance Use Comment - Amount & Last Used: hx of drug use, none at this time. Hx Tobacco Use: Yes Smoking Status (MU): Former Smoker Type: Cigarettes Have You Smoked in the Last Year: No Review of Systems Negative: Fever, Chills Negative: Erythema Negative: Sore Throat Negative: Chest Pain Negative: Shortness Of Breath, Cough Negative: Abdominal Pain, Vomiting, Nausea Negative: dysuria, hematuria Negative: Myalgia, Edema Negative: Rash Neurological: Other - Neg: Dizziness All Other Systems Reviewed And Are Negative: No Physical Exam - Summary Physical Exam Summary: Constitutional: Well-developed, Well-nourished, Alert. (-) Distressed Skin: Warm, Dry HENT: Normocephalic; Atraumatic Eyes: Conjunctiva normal Neck: Musculoskeletal ROM normal neck. (-) JVD, (-) Stridor, (-) Tracheal deviation Cardio: Rhythm regular, rate normal, Heart sounds normal; Intact distal pulses; The pedal pulses are 2+ and symmetric. Radial pulses are 2+ and symmetric. (-) Murmur Pulmonary/Chest wall: Effort normal. (-) Respiratory distress, (-) Wheezes, (-) Rales Abd: Soft, (-) tenderness, (-) Distension, (-) Guarding, (-) Rebound Musculoskeletal: (-) Edema. No snuff box pain or tenderness in the LUE. Lymph: (-) Cervical adenopathy Neuro: Alert, Oriented x3 Psych: Mood and affect Normal Triage Information Reviewed: Yes Vital Signs On Initial Exam: Initial Vitals Temp Pulse Resp BP Pulse Ox 98.9 F 109 16 115/73 97 05/22/19 15:43 05/22/19 15:43 05/22/19 15:43 05/22/19 15:43 05/22/19 15:43 Vital Signs Reviewed: Yes Procedures - Splinting Thumb Location: 4 cm Pre-Made Type: Aluminum Finger Splint Pre-Proc Neuro Vasc Exam: normal Diagnostics - Vital Signs Vital Signs Temp Pulse Resp BP Pulse Ox 05/22/19 15:43 98.9 F 109 16 115/73 97 - Laboratory Lab Statement: Any lab studies that have been ordered have been reviewed, and results considered in the medical decision making process. Course/Dx - Course Course Of Treatment: This patient is a 24 year old female presenting to [facility] with a chief complaint of left thumb problems, requesting a bigger splint s/p fractured thumb. A 4 cm aluminum finger splint was applied. A plan for discharge was discussed with the patient and she was agreeable with this plan. - Diagnoses Provider Diagnoses: Fracture of thumb, left, closed Discharge ED - Sign-Out/Discharge Documenting (check all that apply): Patient Departure - Discharge Patient Received Moderate/Deep Sedation with Procedure: No - Discharge Plan Condition: Stable Disposition: HOME Patient Education Materials: Splint Care (ED), Thumb Fracture (ED) Referrals: Noemi Lewis CNM [Primary Care Provider] - Additional Instructions: Return to ED with any new or worsening symptoms. - Attestation Statements Document Initiated by Scribe: Yes Documenting Scribe: Sean Perrin Provider For Whom Scribe is Documenting (Include Credential): Kurt Day MD Scribe Attestation: Sean Curran, scribed for Kurt Day MD on 05/22/19 at 1606. Status of Scribe Document: Ready
== END 2019-05-22 16:10 | disposition home or self-care (01) ==
LOC: ED 15:42
DX: S62.502D Fracture of unspecified phalanx of left thumb, subsequent encounter for fracture with routine healing (principal); Z87.891 Personal history of nicotine dependence; M41.9 Scoliosis, unspecified; X58.XXXD Exposure to other specified factors, subsequent encounter
CPT/HCPCS: 99281

== ENCOUNTER 2019-09-22 11:59 | Inpatient (IN) | payer OTHER ==
[2019-09-22 13:48] LABS: ABS Eosinophils 0.1 10^3/ul (0-0.6); ABS Lymphocytes 1.9 10^3/ul (1.0-4.8); ABS Monocytes 0.7 10^3/ul (0-0.8); ABS Neutrophils 5.4 10^3/ul (1.5-7.7); Eosinophil % 0.7 %; Hematocrit 31 % (35-47); Hemoglobin 9.8 g/dL (12.0-16.0); Lymphocyte % 23.1 %; Mean Corpuscular HGB Conc 32 g/dL (31-36); Mean Corpuscular Hemoglobin 22 pg (27-31); Mean Corpuscular Volume 69 fL (80-97); Mean Platelet Volume 8.7 fL (7.4-10.4); Platelet Count 330 10^3/uL (150-450); Red Blood Count 4.48 10^6 /uL (3.70-4.87); Red Cell Distribution Width 17 % (10-15); White Blood Count 8.1 10^3/uL (3.5-10.8)
[2019-09-22 14:32] LABS: Urine Benzodiazepine Screen None Detected (None Detect); Urine Opiates Screen None Detected (None Detect)
[2019-09-22] MEDS ORDERED: Lactated Ringers 1000 ML Bag* 1,000 ML IV ONE (14:40)
[2019-09-22] MEDS ORDERED: Sodium Citrate/Citric Acid* 15 ML UDC PO ONE (14:40)
[2019-09-22] MEDS ORDERED: Buffered Lidocaine 1% SYRIN* 1 ML/SYRINGE INTRADERM ONE (14:40)
[2019-09-22] MEDS ORDERED: ceFOXitin 2 GM IVPREMIX* 2 GM/50 ML BAG IVPB ONE (14:40)
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
[2019-09-22] MEDS ORDERED: Lactated Ringers 1000 ML Bag* 1,000 ML IV SCH ×2 (15:00→18:00)
[2019-09-22] MEDS ORDERED: Morphine PF AMP (0.5MG/ML)* 5 MG/10 ML AMP ONE (16:42)
[2019-09-22] MEDS ORDERED: EPHEDrine (Pressors)* 50 MG/ML VIAL ONE (16:59)
[2019-09-22] MEDS ORDERED: OXYTOCIN* 10 UNITS/ML 1 ML VIAL ONE (17:11)
[2019-09-22] MEDS ORDERED: HYDROcodone/ACETAMIN 5-325 MG* 1 TAB PO PRN (17:36)
[2019-09-22] MEDS ORDERED: Ondansetron INJ* 2 MG/ML VIAL IV PRN (17:36)
[2019-09-22] MEDS ORDERED: Nalbuphine* 10 MG/ML 1 ML VIAL IV PRN (17:36)
[2019-09-22] MEDS ORDERED: Naloxone* 0.4 MG/ML 1 ML VIAL IV PRN (17:36)
[2019-09-22] MEDS ORDERED: Dibucaine 1% 28.35 GM TUBE PR PRN (17:57)
[2019-09-22] MEDS ORDERED: Witch Hazel PAD* JAR TOPICAL PRN (17:57)
[2019-09-22] MEDS ORDERED: oxyCODONE/Acetamin 5/325 MG* TAB PO PRN (17:57)
[2019-09-22] MEDS ORDERED: Zolpidem TAB* 5 MG PO PRN (17:57)
[2019-09-22] MEDS ORDERED: Glycerin ADULT SUPP PR PRN (17:57)
[2019-09-22] MEDS: Ketorolac INJ* 30 MG/ML 1 ML VIAL IV PRN (18:57)
[2019-09-22] MEDS ORDERED: diPHENhydraMINE IV* 50 MG/ML 1 ml VIAL (BENADRYL) IV ONE (21:00)
[2019-09-22] MEDS: Docusate CAP* 100 MG PO SCH (21:44)
[2019-09-22] MEDS: Simethicone TAB* 80 MG TAB.CHEW PO SCH (21:44)
[2019-09-23] MEDS: Acetaminophen TAB* 325 MG PO PRN ×3 (00:36→20:08)
[2019-09-23 06:51] LABS: ABS Eosinophils 0.1 10^3/ul (0-0.6); ABS Lymphocytes 1.7 10^3/ul (1.0-4.8); ABS Monocytes 0.7 10^3/ul (0-0.8); ABS Neutrophils 5.9 10^3/ul (1.5-7.7); Eosinophil % 1.3 %; Hematocrit 26 % (35-47); Hemoglobin 8.5 g/dL (12.0-16.0); Lymphocyte % 20.1 %; Mean Corpuscular HGB Conc 32 g/dL (31-36); Mean Corpuscular Hemoglobin 22 pg (27-31); Mean Corpuscular Volume 68 fL (80-97); Mean Platelet Volume 8.3 fL (7.4-10.4); Platelet Count 248 10^3/uL (150-450); Red Blood Count 3.88 10^6 /uL (3.70-4.87); Red Cell Distribution Width 16 % (10-15); White Blood Count 8.4 10^3/uL (3.5-10.8)
[2019-09-23] MEDS: Ketorolac INJ* 30 MG/ML 1 ML VIAL IV PRN ×2 (07:26→16:52)
[2019-09-23] MEDS: Ferrous Gluconate TAB* 324 MG TAB PO SCH ×3 (09:56→20:08)
[2019-09-23] MEDS: Simethicone TAB* 80 MG TAB.CHEW PO SCH ×3 (11:48→20:08)
[2019-09-23] MEDS: Docusate CAP* 100 MG PO SCH ×3 (11:50→20:08)
[2019-09-23] MEDS ORDERED: Ondansetron INJ* 2 MG/ML VIAL IV PRN (12:51)
[2019-09-23] MEDS: Ibuprofen TAB* 600 MG PO PRN (23:06)
[2019-09-24] MEDS: oxyCODONE/Acetamin 5/325 MG* TAB PO PRN ×3 (00:30→22:46)
[2019-09-24] MEDS: Ibuprofen TAB* 600 MG PO PRN ×3 (06:16→19:55)
[2019-09-24] MEDS: Simethicone TAB* 80 MG TAB.CHEW PO SCH ×5 (06:54→19:56)
[2019-09-24] MEDS: Docusate CAP* 100 MG PO SCH ×3 (07:58→19:56)
[2019-09-24] MEDS: Ferrous Gluconate TAB* 324 MG TAB PO SCH ×2 (07:58→19:55)
[2019-09-24] MEDS: Acetaminophen TAB* 325 MG PO PRN (18:37)
[2019-09-25] MEDS: Acetaminophen TAB* 325 MG PO PRN ×2 (04:16→07:53)
[2019-09-25] MEDS: Ibuprofen TAB* 600 MG PO PRN ×4 (04:19→23:22)
[2019-09-25] MEDS: Docusate CAP* 100 MG PO SCH ×3 (07:54→20:10)
[2019-09-25] MEDS: Ferrous Gluconate TAB* 324 MG TAB PO SCH (07:54)
[2019-09-25] MEDS: Simethicone TAB* 80 MG TAB.CHEW PO SCH ×3 (07:54→20:10)
[2019-09-26] MEDS: Acetaminophen TAB* 325 MG PO PRN ×4 (01:30→17:52)
[2019-09-26] MEDS: Ibuprofen TAB* 600 MG PO PRN ×3 (05:48→17:53)
[2019-09-26 07:40] VITALS: BP 118/56
[2019-09-26] MEDS: Ferrous Gluconate TAB* 324 MG TAB PO SCH ×2 (08:15→08:57)
[2019-09-26] MEDS: Simethicone TAB* 80 MG TAB.CHEW PO SCH ×4 (08:15→17:52)
[2019-09-26] MEDS: Docusate CAP* 100 MG PO SCH ×2 (08:57→13:45)
[2019-09-26] MEDS ORDERED: Influenza VAC *QUAD* 2019-20* 0.5 ML SYRINGE IM ONE (13:30)
--- NOTE | 2019-09-27 03:31 | OP ---
DATE OF OPERATION: 09/22/19 - ROOM #117 DATE OF : [birth year] SURGEON: Angel Olivia MD BACON SKIN LIFTER: Heather Goldberg MD ANESTHESIA: Spinal. PRE-OP DIAGNOSIS: at 40 weeks with a prior section, who desired sterilization with a fetus that is small for gestational age. POST-OP DIAGNOSIS: at 40 weeks with a prior section, who desired sterilization with a fetus that is small for gestational age. OPERATIVE PROCEDURE: Repeat low transverse section and a bilateral tubal ligation. ESTIMATED BLOOD LOSS: 500 cc. SPECIMENS SENT TO PATHOLOGY: Cord blood. FLUIDS: She received 2 L of IV crystalloid fluid. URINE OUTPUT: Clear. FINDINGS: Delivery of a female of a clear fluid with a nuchal cord x1 with Apgars of 8 and 9, weighing 5 pounds and 5 ounces. The uterus, adnexa, bowel, and bladder were all within normal limits. DESCRIPTION OF PROCEDURE: The patient was taken to the operating room where she was identified. She was placed on the operating table where a spinal anesthetic was obtained without difficulty. She was then placed in the supine position with a leftward tilt, prepped and draped in a normal sterile fashion. A Pfannenstiel skin incision was made with a knife and carried through the underlying layer of fascia. The fascia was nicked in the midline and extended laterally with curved Limon scissors. The fascia was then grasped superiorly and inferiorly with Amanda clamps and dissected off sharply from the rectus muscle. The rectus muscle was in the midline bluntly. The peritoneum was identified, grasped with pickups, and entered sharply with Metzenbaum scissors and extended superiorly and inferiorly sharply. A bladder blade was inserted into the patient's abdomen. A bladder flap was created over which the bladder blade was then reinserted. A low-transverse uterine incision was made with a knife, and extended laterally with bandage scissors. The amniotic sac was ruptured. The infant's head was then grasped and delivered atraumatically. Nuchal cord x1 was reduced and the rest of infant's body was then delivered. The cord was clamped and cut, and the was handed off to awaiting project management intern. Cord bloods were obtained. The placenta was then removed manually. The uterus was then exteriorized, cleared of all clot and debris using moist laparotomy sponges. The uterine incision was then closed using 0 Polysorb suture in a running locked fashion with a second imbricating layer of 0 Polysorb suture with good hemostasis noted. At this point, a bilateral tubal ligation via fimbriectomy was performed in the usual fashion using 3-0 Polysorb sutures. Portions of the right and the left fallopian tubes were sent to Pathology. The uterus was then returned to the patient's abdomen. The gutters were then cleared of all clot and debris using saline irrigation, which was then suctioned and the gutters were then also cleaned with moist laparotomy sponges. All the sponges were then removed from the patient's abdomen. The peritoneum was then closed using 3-0 Polysorb suture in a running fashion. The fascia was closed using 0 Polysorb suture in a running fashion and the skin was closed with a 4-0 Monocryl subcuticular stitch. The patient tolerated the procedure well. Sponge, lap, and needle counts were correct x2. She was then transferred to the recovery room area in stable condition. [id number]/[facility] #: [id number] ADAM
== END 2019-09-26 18:32 | disposition home or self-care (01) | DRG 540 ==
LOC: MCHOBOUT 11:59 → MCHOB 13:12
PROVIDERS: ADMIT Obstetrics & Gynecology; ATTEND Obstetrics & Gynecology
PROC: 0UB70ZZ Excision of Bilateral Fallopian Tubes, Open Approach (ICD-10-PCS; 2019-09-22)
PROC: 10D00Z1 Extraction of Products of Conception, Low, Open Approach (ICD-10-PCS; principal; 2019-09-22 16:39)
DX: O34.211 Maternal care for low transverse scar from previous cesarean delivery (principal); O36.5990 Maternal care for other known or suspected poor fetal growth, unspecified trimester, not applicable or unspecified; O99.344 Other mental disorders complicating childbirth; F41.8 Other specified anxiety disorders; O69.81X0 Labor and delivery complicated by cord around neck, without compression, not applicable or unspecified; Z3A.40 40 weeks gestation of pregnancy; Z37.0 Single live birth
CPT/HCPCS: 36415; 80307; 85025; 86850; 86900; 86901; 88302; 90686; A9270-GY; J0694; J1200; J1885; J2405; J2590

== ENCOUNTER 2019-11-27 14:30 | Emergency (ER) | payer OTHER ==
--- NOTE | 2019-11-27 14:50 | ED ---
Complex/Multi-Sys Presentation - HPI Summary HPI Summary: 24 year old F presenting to [facility] with a chief complaint of a sore throat, chest pressure, dizziness and shortness of breath with exertion, and post-nasal drip since 04:00 this morning. The patient rates the pain 0/10 in severity. She states that she used her inhaler once during the night and once today at 12:00 when she became short of breath. She also states that her throat feels "full." She denies any recent travel. Medication list reviewed. Allergy list reviewed. - History Of Current Complaint Chief Complaint: EDGeneral Time Seen by Provider: 11/27/19 14:41 Hx Obtained From: Patient Onset/Duration: Lasting Hours Timing: Constant Severity Currently: None Location: Pain At: - Chest Character: Pressure Associated Signs And Symptoms: Positive: Dizziness, SOB, Chest Pain, Other - Sore throat; post-nasal drip - Allergies/Home Medications Allergies/Adverse Reactions: Allergies Allergy/AdvReac Type Severity Reaction Status Date / Time amoxicillin Allergy Severe Rash Verified 11/27/19 14:39 hydroxyzine [From Atarax] Allergy Severe See Comment Verified 11/27/19 14:39 lorazepam [From Ativan] Allergy Severe Unknown Verified 11/27/19 14:39 Reaction Details Penicillins Allergy Severe Hives Verified 11/27/19 14:39 ziprasidone [From Geodon] Allergy Severe See Comment Verified 11/27/19 14:39 latex Allergy Hives Verified 11/27/19 14:39 Home Medications: Home Medications Albuterol HFA INHALER* [Ventolin HFA Inhaler*] 2 puff INH Q4H PRN #1 mdi [Rx Confirmed 11/27/19] PMH/Surg Hx/FS Hx/Imm Hx Endocrine/Hematology History: Reports: Other Endocrine/Hematological Disorders - Polycystic Ovarian Syndrome Denies: Hx Anticoagulant Therapy, Hx Diabetes, Hx Thyroid Disease Cardiovascular History: Reports: Other Cardiovascular Problems/Disorders - MURMUR Denies: Hx Hypertension Respiratory History: Reports: Hx Asthma Denies: Hx Chronic Obstructive Pulmonary Disease (COPD), Hx Lung Cancer, Hx Pneumonia, Hx Pulmonary Embolism, Other Respiratory Problems/Disorders GI History: Reports: Other GI Disorders - wheat allergy and lactose intolerance Denies: Hx Gall Bladder Disease, Hx Gastrointestinal Bleed, Hx Ulcer, Hx Urosepsis History: Reports: Other Problems/Disorders - hx multiple UTIs Denies: Hx Kidney Stones, Hx Renal Disease Sensory History: Reports: Hx Contacts or Glasses Denies: Hx Hearing Aid Opthamlomology History: Reports: Hx Contacts or Glasses Neurological History: Reports: Hx Seizures, Other Neuro Impairments/Disorders - positive: epilepsy Denies: Hx Dementia, Hx Migraine, Hx Transient Ischemic Attacks (TIA) Psychiatric History: Reports: Hx Anxiety, Hx Depression, Hx Inpatient Treatment - [facility], Hx Community Mental Health Tx - [facility], [facility], Hx Substance Abuse - multiple , currently at [facility] 09/2018, Other Psychiatric Issues/Disorders - borderline personality, bipolar, PTSD Denies: Hx Attention Deficit Hyperactivity Disorder, Hx Eating Disorder, Hx Panic Disorder, Hx Post Traumatic Stress Disorder, Hx Schizophrenia, Hx Bipolar Disorder, Hx Suicide Attempt, Hx of Violent Episodes Against Others - Cancer History Cancer Type, Location and Year: epilepsy scoliosis - Surgical History Surgery Procedure, Year, and Place: 07/31/17 - Immunization History Date of Tetanus Vaccine: Unk Date of Influenza Vaccine: None Infectious Disease History: No Infectious Disease History: Denies: Hx Hepatitis, Hx Human Immunodeficiency Virus (HIV), Hx of Known/ Suspected MRSA, History Other Infectious Disease, Traveled Outside the [place] in Last 30 Days - Family History Known Family History: Positive: Unknown - Adopted, Other - Biological mother - EtOH and drug abuse Negative: Blood Disorder - Social History Alcohol Use: Weekly Alcohol Amount: pt states 3x/week 6-8 drinks at a time, last intake 12/18/18 2030 per pt Hx Substance Use: Yes Substance Use Comment - Amount & Last Used: hx of drug use, none at this time. Hx Tobacco Use: Yes Smoking Status (MU): Former Smoker Type: Cigarettes Have You Smoked in the Last Year: No Review of Systems Positive: Sore Throat, Nasal Discharge Positive: Chest Pain Positive: Shortness Of Breath Neurological/Mental Status: Other - Dizziness All Other Systems Reviewed And Are Negative: Yes Physical Exam - Summary Physical Exam Summary: Appearance: The patient is well-nourished in no acute distress and in no acute pain. Skin: The skin is warm and dry, and skin color reflects adequate perfusion. HEENT: The head is normocephalic and atraumatic. The pupils are equal and reactive. The conjunctivae are clear and without drainage. Nares are patent and without drainage. Mouth reveals moist mucous membranes, and the throat is without erythema and exudate. The external ears are intact. The ear canals are patent and without drainage. The tympanic membranes are intact. Neck: The neck is supple with full range of motion and non-tender. There are no carotid bruits. There is no neck vein distension. Respiratory: Chest is non-tender. Lungs are clear to auscultation and breath sounds are symmetrical and equal. Cardiovascular: Heart is regular rate and rhythm. There is no murmur or rub auscultated. There is no peripheral edema and pulses are symmetrical and equal. Abdomen: The abdomen is soft and non-tender. There are normal bowel sounds heard in all four quadrants and there is no organomegaly palpated. Musculoskeletal: There is no back tenderness noted. Extremities are non-tender with full range of motion. There is good capillary refill. There is no peripheral edema or calf tenderness elicited. Neurological: Patient is alert and oriented to person, place and time. The patient has symmetrical motor strength in all four extremities. Cranial nerves are grossly intact. Deep tendon reflexes are symmetrical and equal in all four extremities. Psychiatric: The patient has an appropriate affect and does not exhibit any anxiety or depression. Triage Information Reviewed: Yes Vital Signs On Initial Exam: Initial Vitals Temp Pulse Resp BP Pulse Ox 98.6 F 84 14 121/71 99 11/27/19 14:39 11/27/19 14:39 11/27/19 14:39 11/27/19 14:39 11/27/19 14:39 Vital Signs Reviewed: Yes Procedures - Sedation Patient Received Moderate/Deep Sedation with Procedure: No Diagnostics - Vital Signs Vital Signs Temp Pulse Resp BP Pulse Ox 11/27/19 14:39 98.6 F 84 14 121/71 99 - Laboratory Lab Statement: Any lab studies that have been ordered have been reviewed, and results considered in the medical decision making process. Complex Multi-Symp Course/Dx Course Of Treatment: Ms. Jacobs reported to me that she woke up during the night and felt heaviness in her chest. She used her albuterol inhaler and felt better and went back to sleep. She felt somewhat full in her chest when she got up and then about 12:30 she was ambulating and felt short of breath. She used her inhaler again at that time. She is feeling a little bit better at this point. She was nontoxic in appearance with stable vitals. I don't think this represents an acute infectious process although it the most she was catching a virus. She has no indications for COVID 19 at this point. I recommended that she stay home and call her PCP if she develops a fever. She should treat symptomatically with her inhaler as needed. - Diagnoses Provider Diagnoses: Viral syndrome Discharge ED - Sign-Out/Discharge Documenting (check all that apply): Patient Departure - Discharge Plan Condition: Stable Disposition: HOME Patient Education Materials: Viral Syndrome (ED) Forms: *Work Release Referrals: Noemi Lewis [Atmospheric Physicist] - 3 Days Additional Instructions: Follow-up with your PCP in 2-3 days. Isolate yourself until you are asymptomatic. Return to the emergency department for changing or worsening symptoms. - Billing Disposition and Condition Condition: STABLE Disposition: Home - Attestation Statements Document Initiated by Scribe: Yes Documenting Scribe: Melvi Wan Provider For Whom Scribe is Documenting (Include Credential): Frantz Hogue MD Scribe Attestation: Melvi Curran scribed for Frantz Hogue MD on 11/27/19 at 2112. Scribe Documentation Reviewed: Yes Provider Attestation: The documentation as recorded by the Melvi dudley accurately reflects the service I personally performed and the decisions made by me, Frantz Hogue MD Status of Scribe Document: Viewed
[2019-11-27 16:03] LABS: Rapid Strep Molecular Negative (Negative)
[2019-11-27 17:14] VITALS: BP 115/75
== END 2019-11-27 17:10 | disposition home or self-care (01) ==
LOC: ED 14:30
DX: B34.9 Viral infection, unspecified (principal); R42 Dizziness and giddiness; J02.9 Acute pharyngitis, unspecified; R07.9 Chest pain, unspecified; Z86.79 Personal history of other diseases of the circulatory system; Z88.0 Allergy status to penicillin; Z88.8 Allergy status to other drugs, medicaments and biological substances; Z79.899 Other long term (current) drug therapy
CPT/HCPCS: 87651; 99282

== ENCOUNTER 2019-12-25 02:07 | Emergency (ER) | payer OTHER ==
[2019-12-25] MEDS ORDERED: Ibuprofen TAB* 400 MG PO ONE (02:37)
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
[2019-12-25 03:09] LABS: ABS Basophils 0.1 10^3/ul (0-0.2); ABS Eosinophils 0.1 10^3/ul (0-0.6); ABS Lymphocytes 1.3 10^3/ul (1.0-4.8); ABS Monocytes 0.6 10^3/ul (0-0.8); ABS Neutrophils 8.2 10^3/ul (1.5-7.7); Hematocrit 32 % (35-47); Hemoglobin 10.2 g/dL (12.0-16.0); Lymphocyte % 12.7 %; Mean Corpuscular HGB Conc 32 g/dL (31-36); Mean Corpuscular Hemoglobin 21 pg (27-31); Mean Corpuscular Volume 67 fL (80-97); Mean Platelet Volume 8.8 fL (7.4-10.4); Nucleated Red Blood Cells % 0.1; Platelet Count 370 10^3/uL (150-450); Red Blood Count 4.83 10^6 /uL (3.70-4.87); Red Cell Distribution Width 18 % (10-15); White Blood Count 10.2 10^3/uL (3.5-10.8)
[2019-12-25 03:23] LABS: ALT 7 U/L (7-52); AST 10 U/L (13-39); Albumin 4.2 g/dL (3.2-5.2); Albumin/Globulin Ratio 1.7 (1-3); Alkaline Phosphatase 51 U/L (34-104); Anion Gap 7 mmol/L (2-11); BUN/Creatinine Ratio 10.7 (8-20); Blood Urea Nitrogen 8 mg/dL (6-24); CO2 Carbon Dioxide 27 mmol/L (22-32); Calcium 9.2 mg/dL (8.6-10.3); Chloride 103 mmol/L (101-111); EGFR African American 115.9 (>60); EGFR Non-African American 95.8 (>60); Globulin 2.5 g/dL (2-4); Glucose 106 mg/dL (70-100); Potassium 4.1 mmol/L (3.5-5.0); Sodium 137 mmol/L (135-145); Total Protein 6.7 g/dL (6.4-8.9)
[2019-12-25 03:25] LABS: Acetaminophen < 15 mcg/mL; Alcohol < 10 mg/dL (<10); Salicylate < 2.50 mg/dL (<30)
[2019-12-25 03:30] LABS: HCG Pregnancy < 0.60 mIU/mL
[2019-12-25 04:33] VITALS: BP 124/77
== END 2019-12-25 04:30 | disposition home or self-care (01) ==
LOC: ED 02:07
DX: M54.5 Low back pain (principal); R51 Headache; Z88.0 Allergy status to penicillin; Z88.8 Allergy status to other drugs, medicaments and biological substances; Z86.79 Personal history of other diseases of the circulatory system; F41.9 Anxiety disorder, unspecified; F32.9 Major depressive disorder, single episode, unspecified; Z87.891 Personal history of nicotine dependence; Y09 Assault by unspecified means
CPT/HCPCS: 36415; 72128; 80053; 80320; 80329; 83605; 84702; 85025; 99282; A9270-GY; G0480